=== PATIENT | female | born 1970 | race Caucasian/White ===

== ENCOUNTER 2022-03-09 22:51 | Outpatient (CLI) | payer BC, SELFPAY | END 2022-03-09 22:52 | disposition home or self-care (01) | LOC: AMB 03-26 19:26 | PROVIDERS: PCP Physician Assistant Medical; Visit Provider Family Medicine | DX: T39.1X2A Poisoning by 4-Aminophenol derivatives, intentional self-harm, initial encounter (principal); Y92.039 Unspecified place in apartment as the place of occurrence of the external cause | CPT/HCPCS: A0425; A0427 ==

== ENCOUNTER 2022-03-09 23:17 | Emergency (ER) | payer BC, SELFPAY ==
[2022-03-09 23:24] VITALS: BP 171/110; PULSE 88; RESP 22; TEMP 36.2; O2SAT 100; BMI 22.7
--- NOTE | 2022-03-09 23:36 | ED.PSYCH ---
HPI - Psych General Chief Complaint: Psychiatric Problem/Disorder <Roman Ramirez MD - Last Filed: 03/09/22 23:55> Stated Complaint: Overdose <Roman Ramirez MD - Last Filed: 03/09/22 23:55> Time Seen by Provider: 03/09/22 23:38 <Roman Ramirez MD - Last Filed: 03/09/22 23:55> History of Present Illness HPI Narrative: Patient is a 52-year-old woman with a complex past medical history involving chronic renal insufficiency who presents after taking approximately 3000 mg of Tylenol and 800 mg of ibuprofen this evening. Patient states that she was in argument with her boyfriend and she took the medication out of anger to try to end her life. She is losing her sight in the patient's boyfriend is by her count reluctant to take care of her. She is feeling fine now. She states she is not suicidal. She is having no adverse consequences to her medication intake. <Roman Ramirez MD - Last Filed: 03/09/22 23:55> Related Data Home Medications: Home Medications Medication Instructions Recorded Confirmed acetaminophen 500 mg tablet mg 03/09/22 albuterol sulfate 90 mcg/actuation inhalation 03/09/22 aerosol inhaler (Ventolin HFA) aspirin 81 mg chewable tablet 03/09/22 atorvastatin 40 mg tablet mg 03/09/22 atorvastatin 80 mg tablet mg 03/09/22 duloxetine 30 mg capsule,delayed mg PO 03/09/22 release insulin aspart U-100 100 unit/mL subcut 03/09/22 (3 mL) subcutaneous pen (Novolog Flexpen U-100 Insulin aspart) insulin glargine 100 unit/mL (3 unit subcut 03/09/22 mL) subcutaneous pen (Lantus Solostar U-100 Insulin) ipratropium 0.5 mg-albuterol 3 mg ml inhalation 03/09/22 (2.5 mg base)/3 mL nebulization soln lidocaine 5 % topical patch 1 patch topical DAILY 03/09/22 03/09/22 lisinopril 10 mg tablet mg 03/09/22 mecobalamin (vitamin B12) 1,000 1,000 mcg PO DAILY 03/09/22 03/09/22 mcg chewable tablet metoclopramide HCl 5 mg tablet mg 03/09/22 montelukast 10 mg tablet mg 03/09/22 nicotine (polacrilex) 2 mg gum 2 mg buccal Q1-2H PRN 03/09/22 03/09/22 (Nicorette) nitroglycerin 0.4 mg sublingual 0.4 mg sublingual Q5M 03/09/22 03/09/22 tablet (Nitrostat) ondansetron 4 mg disintegrating mg 03/09/22 tablet pantoprazole 40 mg tablet,delayed mg PO 03/09/22 release polyethylene glycol 3350 17 17 g PO DAILY 03/09/22 03/09/22 gram/dose oral powder (Miralax) sennosides 8.6 mg tablet (Senna 8.6 mg PO DAILY 03/09/22 03/09/22 Lax) trazodone 100 mg tablet mg 03/09/22 <Roman Ramirez MD - Last Filed: 03/09/22 23:55> Allergies/Adverse Reactions: Allergies Allergy/AdvReac Type Severity Reaction Status Date / Time No Known Drug Allergies Allergy Verified 03/09/22 23:32 <Roman Ramirez MD - Last Filed: 03/09/22 23:55> Review of Systems Status of ROS: Reports: 10 or more systems reviewed and unremarkable except as noted in History and below <Roman Ramirez MD - Last Filed: 03/09/22 23:55> [facility] Medical History: Medical History (Updated 03/10/22 @ 07:53 by Naty Casper MD) ACP (advance care planning) ASHD (arteriosclerotic heart disease) Asthma Bilateral carpal tunnel syndrome Chronic pain COVID-19 virus infection Fibromyalgia Gastric dysmotility GERD without esophagitis Hidradenitis suppurativa History of CVA (cerebrovascular accident) History of falling History of syncope HLD (hyperlipidemia) Insomnia Methamphetamine abuse Misuse of drugs Nausea and vomiting Nephrotic range proteinuria Orthostatic hypotension PFO (patent foramen ovale) Sleep apnea Stage 3 chronic kidney disease Supine hypertension Tobacco abuse Trigger finger of thumb Type 1 diabetes mellitus with diabetic autonomic (poly)neuropathy UTI (urinary tract infection) Vitamin B12 deficiency <Roman Ramirez MD - Last Filed: 03/09/22 23:55> Social History: Social History Do you use any of these nicotine containing products: None Second hand tobacco smoke exposure: No How often do you have a drink containing alcohol: never AUDIT-C Alcohol total score: 0 Non-prescribed substance use: former substance user and amphetamines/methamphetamines service: No <Roman Ramirez MD - Last Filed: 03/09/22 23:55> Exam Narrative: Exam Narrative: EXAM GENERAL: Patient appears chronically unwell. EYES: No scleral icterus. LYMPH: No supraclavicular or cervical lymphadenopathy. SKIN: Visible skin seen during exam normal or with benign process only. EXT: No dependent lower extremity pedal edema. HEART: Regular rate and rhythm with no murmurs, rubs, or gallops. LUNGS: Clear to auscultation bilaterally with no crackles or wheezes. ABD: Soft, non tender, non distended. PSYCH: Good eye contact, speech is not pressured. <Roman Ramirez MD - Last Filed: 03/09/22 23:55> Const: Vital Signs, click to edit/add: Vital Signs - 24 hr 03/09/22 23:24 Temperature 97.2 F L Pulse Rate [Right Pulse Oximeter] 88 Respiratory Rate 22 Blood Pressure [Ri ght Upper Arm] 171/110 H Pulse Oximetry 100 Oxygen Delivery Me thod Room Air <Roman Ramirez MD - Last Filed: 03/09/22 23:55> Vital Signs, click to edit/add: Vital Signs - 24 hr 03/09/22 23:24 Temperature 97.2 F L Pulse Rate [Right Pulse Oximeter] 88 Respiratory Rate 22 Blood Pressure [Ri ght Upper Arm] 171/110 H Pulse Oximetry 100 Oxygen Delivery Me thod Room Air <Naty Casper MD - Last Filed: 03/10/22 07:53> Course Course Hospital Course: I have collected standard laboratory studies for psychiatric evaluation. We have contacted poison Control. We will plan to place a consult for mental health assessment. <Roman Ramirez MD - Last Filed: 03/09/22 23:55> Reevaluation(s) Reevaluation #1: After telehealth consultation, it was felt that this patient was safe to discharge to home. She you was reportedly feeling better after discussed seen and talking with the telehealth provider. Patient was exhibiting future wrist Rodriguez thinking, wanting to live for her grandkids, was really focused on an upcoming eye surgery appointment reported the. She talked about needing to get away from her current boyfriend it had insight and does some of the current living situation problem she had. Patient repetitively asked for a sleeping pill overnight which was declined. I discussed with her that she had had positive urine drug screen with methamphetamines which might be affecting her overall ability is sleep. Note, nursing staff reported that patient was sleeping most of the night however. She also stated that the other doctor had told her she could have 1 Vicodin but never got it. I reviewed with her that I would not be giving her any Vicodin, nursing staff did not endorse that this was going to happen either. Patient will be discharged to home with telehealth making her an outpatient phone call follow-up. <Naty Casper MD - Last Filed: 03/10/22 07:53> Time: 05:00 <Naty Casper MD - Last Filed: 03/10/22 07:53> Vital Signs Vital signs: Initial Vital Signs Temperature 97.2 F L 03/09/22 23:24 Temperature Source Temporal Artery Scan 03/09/22 23:24 Pulse Rate 88 03/09/22 23:24 Pulse Rhythm 03/09/22 23:24 Respiratory Rate 22 03/09/22 23:24 Blood Pressure 171/110 H 03/09/22 23:24 Blood Pressure Mean 130 03/09/22 23:24 Blood Pressure Position Supine 03/09/22 23:24 Pulse Oximetry 100 03/09/22 23:24 Oxygen Delivery Method 03/09/22 23:24 Vital Signs Temperature 97.2 F L 03/09/22 23:24 Pulse Rate 88 03/09/22 23:24 Respiratory Rate 22 03/09/22 23:24 Blood Pressure 171/110 H 03/09/22 23:24 Pulse Oximetry 100 03/09/22 23:24 Oxygen Delivery Method 03/09/22 23:24 Temperature 97.2 F L 03/09/22 23:24 Pulse Rate 88 03/09/22 23:24 Respiratory Rate 22 03/09/22 23:24 Blood Pressure 171/110 H 03/09/22 23:24 Pulse Oximetry 100 03/09/22 23:24 Oxygen Delivery Method 03/09/22 23:24 <Roman Ramirez MD - Last Filed: 03/09/22 23:55> Initial Vital Signs Temperature 97.2 F L 03/09/22 23:24 Temperature Source Temporal Artery Scan 03/09/22 23:24 Pulse Rate 88 03/09/22 23:24 Pulse Rhythm 03/09/22 23:24 Respiratory Rate 22 03/09/22 23:24 Blood Pressure 171/110 H 03/09/22 23:24 Blood Pressure Mean 130 03/09/22 23:24 Blood Pressure Position Supine 03/09/22 23:24 Pulse Oximetry 100 03/09/22 23:24 Oxygen Delivery Method 03/09/22 23:24 Vital Signs Temperature 97.2 F L 03/09/22 23:24 Pulse Rate 88 03/09/22 23:24 Respiratory Rate 22 03/09/22 23:24 Blood Pressure 171/110 H 03/09/22 23:24 Pulse Oximetry 100 03/09/22 23:24 Oxygen Delivery Method 03/09/22 23:24 Temperature 97.2 F L 03/09/22 23:24 Pulse Rate 88 03/09/22 23:24 Respiratory Rate 22 03/09/22 23:24 Blood Pressure 171/110 H 03/09/22 23:24 Pulse Oximetry 100 03/09/22 23:24 Oxygen Delivery Method 03/09/22 23:24 <Naty Casper MD - Last Filed: 03/10/22 07:53> MDM - Psych Lab Data Attestation: I reviewed the patient's lab results. <Naty Casper MD - Last Filed: 03/10/22 07:53> Labs: Lab Results 03/09/22 03/09/22 03/10/22 Range/Units 23:50 23:50 01:05 WBC 12.23 H (4.50-11.00) K/uL RBC 3.97 L (4.00-5.20) m/uL Hgb 11.3 L (12.0-16.0) gm/dL Hct 33.9 (33.0-51.0) % MCV 85 (80-100) fL MCH 29 (26-34) pg MCHC 33 (32-36) gm/dL RDW Coeff of Santino 13.0 (11.5-15.5) % Plt Count 340 (140-440) K/uL Neut % (Auto) 65.8 (42.0-72.0) % Lymph % (Auto) 25.3 (20-44) % [place] % (Auto) 5.4 (0.0-11.0) % Eos % (Auto) 2.0 (0.0-7.0) % Baso % (Auto) 0.7 (0.0-3.0) % Neut # (Auto) 8.00 H (1.7-7.0) K/uL Lymph # (Auto) 3.10 H (0.90-2.90) K/uL [place] # (Auto) 0.70 (0.00-0.90) K/UL Eos # (Auto) 0.20 (0.00-0.50) K/uL Baso # (Auto) 0.10 (0.00-0.30) K/uL Abs Immat Gran (auto) 0.10 (0.00-0.30) K/uL Sodium 135 (135-149) mmol/L Potassium 4.3 (3.6-5.1) mmol/L Chloride 108 (96-114) mmol/L Carbon Dioxide 21 (20-32) mmol/L BUN 51 H (7-30) mg/dL Creatinine 2.3 H (0.5-1.5) mg/dL Estimated Creat Clear 22.08 Estimated GFR 25 ml/min Glucose 253 H (60-115) mg/dL Calcium 7.9 L (8.4-10.6) mg/dL Total Bilirubin 0.1 (0.1-1.5) mg/dL AST 24 (12-35) U/L ALT 22 (4-35) U/L Alkaline Phosphatase 73 (40-150) U/L Total Protein 6.0 (6.0-8.3) g/dL Albumin 2.9 L (3.3-5.0) g/dL Salicylates < 1.0 L (1.0-10) mg/dL Urine Opiates Screen Negative (Negative) Ur Oxycodone Screen Negative (Negative) Urine Methadone Screen Negative (Negative) Ur Propoxyphene Screen Negative (Negative) Acetaminophen 20.0 (10.0-30.0) ug/mL Ur Barbiturates Screen Negative (Negative) U Tricyclic Antidepress Negative (Negative) Ur Phencyclidine Scrn Negative (Negative) Ur Amphetamines Screen POSITIVE A* (Negative) U Methamphetamines Scrn POSITIVE A* (Negative) U Benzodiazepines Scrn Negative (Negative) Urine Cocaine Screen Negative (Negative) U Marijuana (THC) Screen Negative (Negative) Ur Drug Screen Comment See Note Ethyl Alcohol < 0.01 L (0.01-0.03) % 03/10/22 Range/Units 02:29 WBC (4.50-11.00) K/uL RBC (4.00-5.20) m/uL Hgb (12.0-16.0) gm/dL Hct (33.0-51.0) % MCV (80-100) fL MCH (26-34) pg MCHC (32-36) gm/dL RDW Coeff of Santino (11.5-15.5) % Plt Count (140-440) K/uL Neut % (Auto) (42.0-72.0) % Lymph % (Auto) (20-44) % [place] % (Auto) (0.0-11.0) % Eos % (Auto) (0.0-7.0) % Baso % (Auto) (0.0-3.0) % Neut # (Auto) (1.7-7.0) K/uL Lymph # (Auto) (0.90-2.90) K/uL [place] # (Auto) (0.00-0.90) K/UL Eos # (Auto) (0.00-0.50) K/uL Baso # (Auto) (0.00-0.30) K/uL Abs Immat Gran (auto) (0.00-0.30) K/uL Sodium (135-149) mmol/L Potassium (3.6-5.1) mmol/L Chloride (96-114) mmol/L Carbon Dioxide (20-32) mmol/L BUN (7-30) mg/dL Creatinine (0.5-1.5) mg/dL Estimated Creat Clear Estimated GFR ml/min Glucose (60-115) mg/dL Calcium (8.4-10.6) mg/dL Total Bilirubin (0.1-1.5) mg/dL AST (12-35) U/L ALT (4-35) U/L Alkaline Phosphatase (40-150) U/L Total Protein (6.0-8.3) g/dL Albumin (3.3-5.0) g/dL Salicylates (1.0-10) mg/dL Urine Opiates Screen (Negative) Ur Oxycodone Screen (Negative) Urine Methadone Screen (Negative) Ur Propoxyphene Screen (Negative) Acetaminophen 15.0 (10.0-30.0) ug/mL Ur Barbiturates Screen (Negative) U Tricyclic Antidepress (Negative) Ur Phencyclidine Scrn (Negative) Ur Amphetamines Screen (Negative) U Methamphetamines Scrn (Negative) U Benzodiazepines Scrn (Negative) Urine Cocaine Screen (Negative) U Marijuana (THC) Screen (Negative) Ur Drug Screen Comment Ethyl Alcohol (0.01-0.03) % <Roman Ramirez MD - Last Filed: 03/09/22 23:55> Lab Results 03/09/22 03/09/22 03/10/22 Range/Units 23:50 23:50 01:05 WBC 12.23 H (4.50-11.00) K/uL RBC 3.97 L (4.00-5.20) m/uL Hgb 11.3 L (12.0-16.0) gm/dL Hct 33.9 (33.0-51.0) % MCV 85 (80-100) fL MCH 29 (26-34) pg MCHC 33 (32-36) gm/dL RDW Coeff of Santino 13.0 (11.5-15.5) % Plt Count 340 (140-440) K/uL Neut % (Auto) 65.8 (42.0-72.0) % Lymph % (Auto) 25.3 (20-44) % [place] % (Auto) 5.4 (0.0-11.0) % Eos % (Auto) 2.0 (0.0-7.0) % Baso % (Auto) 0.7 (0.0-3.0) % Neut # (Auto) 8.00 H (1.7-7.0) K/uL Lymph # (Auto) 3.10 H (0.90-2.90) K/uL [place] # (Auto) 0.70 (0.00-0.90) K/UL Eos # (Auto) 0.20 (0.00-0.50) K/uL Baso # (Auto) 0.10 (0.00-0.30) K/uL Abs Immat Gran (auto) 0.10 (0.00-0.30) K/uL Sodium 135 (135-149) mmol/L Potassium 4.3 (3.6-5.1) mmol/L Chloride 108 (96-114) mmol/L Carbon Dioxide 21 (20-32) mmol/L BUN 51 H (7-30) mg/dL Creatinine 2.3 H (0.5-1.5) mg/dL Estimated Creat Clear 22.08 Estimated GFR 25 ml/min Glucose 253 H (60-115) mg/dL Calcium 7.9 L (8.4-10.6) mg/dL Total Bilirubin 0.1 (0.1-1.5) mg/dL AST 24 (12-35) U/L ALT 22 (4-35) U/L Alkaline Phosphatase 73 (40-150) U/L Total Protein 6.0 (6.0-8.3) g/dL Albumin 2.9 L (3.3-5.0) g/dL Salicylates < 1.0 L (1.0-10) mg/dL Urine Opiates Screen Negative (Negative) Ur Oxycodone Screen Negative (Negative) Urine Methadone Screen Negative (Negative) Ur Propoxyphene Screen Negative (Negative) Acetaminophen 20.0 (10.0-30.0) ug/mL Ur Barbiturates Screen Negative (Negative) U Tricyclic Antidepress Negative (Negative) Ur Phencyclidine Scrn Negative (Negative) Ur Amphetamines Screen POSITIVE A* (Negative) U Methamphetamines Scrn POSITIVE A* (Negative) U Benzodiazepines Scrn Negative (Negative) Urine Cocaine Screen Negative (Negative) U Marijuana (THC) Screen Negative (Negative) Ur Drug Screen Comment See Note Ethyl Alcohol < 0.01 L (0.01-0.03) % 03/10/22 Range/Units 02:29 WBC (4.50-11.00) K/uL RBC (4.00-5.20) m/uL Hgb (12.0-16.0) gm/dL Hct (33.0-51.0) % MCV (80-100) fL MCH (26-34) pg MCHC (32-36) gm/dL RDW Coeff of Santino (11.5-15.5) % Plt Count (140-440) K/uL Neut % (Auto) (42.0-72.0) % Lymph % (Auto) (20-44) % [place] % (Auto) (0.0-11.0) % Eos % (Auto) (0.0-7.0) % Baso % (Auto) (0.0-3.0) % Neut # (Auto) (1.7-7.0) K/uL Lymph # (Auto) (0.90-2.90) K/uL [place] # (Auto) (0.00-0.90) K/UL Eos # (Auto) (0.00-0.50) K/uL Baso # (Auto) (0.00-0.30) K/uL Abs Immat Gran (auto) (0.00-0.30) K/uL Sodium (135-149) mmol/L Potassium (3.6-5.1) mmol/L Chloride (96-114) mmol/L Carbon Dioxide (20-32) mmol/L BUN (7-30) mg/dL Creatinine (0.5-1.5) mg/dL Estimated Creat Clear Estimated GFR ml/min Glucose (60-115) mg/dL Calcium (8.4-10.6) mg/dL Total Bilirubin (0.1-1.5) mg/dL AST (12-35) U/L ALT (4-35) U/L Alkaline Phosphatase (40-150) U/L Total Protein (6.0-8.3) g/dL Albumin (3.3-5.0) g/dL Salicylates (1.0-10) mg/dL Urine Opiates Screen (Negative) Ur Oxycodone Screen (Negative) Urine Methadone Screen (Negative) Ur Propoxyphene Screen (Negative) Acetaminophen 15.0 (10.0-30.0) ug/mL Ur Barbiturates Screen (Negative) U Tricyclic Antidepress (Negative) Ur Phencyclidine Scrn (Negative) Ur Amphetamines Screen (Negative) U Methamphetamines Scrn (Negative) U Benzodiazepines Scrn (Negative) Urine Cocaine Screen (Negative) U Marijuana (THC) Screen (Negative) Ur Drug Screen Comment Ethyl Alcohol (0.01-0.03) % <Naty Casper MD - Last Filed: 03/10/22 07:53> Critical Care Time Critical Care Time Critical Care Time: No <Naty Casper MD - Last Filed: 03/10/22 07:53> Discharge Plan Discharge Clinical Impression: Intentional drug overdose, Methamphetamine use <Roman Ramirez MD - Last Filed: 03/09/22 23:55> Condition: Stable <Roman Ramirez MD - Last Filed: 03/09/22 23:55> Instructions: Methamphetamine Abuse (ED), Adult Overdose (ED), Suicide Prevention (ED) <Roman Ramirez MD - Last Filed: 03/09/22 23:55> Additional Instructions: It is highly recommended that you not use methamphetamine, only take dosages of Tylenol per bottle direction. Certainly 3000 mg at 1 time is not recommended. Please follow the telehealth recommendations and follow through with a phone consultation neb set up for you. Talk to primary provider about possibly getting set up with a therapist and to discuss current ED visit. If you feel you are becoming suicidal, have significant change in her status regarding her mood, please seek re-evaluation. <Roman Ramirez MD - Last Filed: 03/09/22 23:55> Prescriptions: No Action atorvastatin 40 mg tablet Label Comments: TAKE 1 TABLET (40 MG) BY MOUTH DAILY. atorvastatin 80 mg tablet Label Comments: TAKE ONE TABLET BY MOUTH ONE TIME DAILY AT BEDTIME ipratropium-albuterol 0.5 mg-3 mg(2.5 mg base)/3 mL solution for nebulization INHALATION Label Comments: Inhale 1 vial (3 mL) via a nebulizer 4 times daily if needed for Shortness of Breath 1st choice or Wheezing acetaminophen 500 mg tablet Label Comments: Take 1 Tablet (500 mg) by mouth in the morning and 1 Tablet (500 mg) at noon and 1 Tablet (500 mg) in the evening and 1 Tablet (500 mg) befo metoclopramide HCl 5 mg tablet Label Comments: Take 1 tablet by mouth at least 15 minutes prior to eating a meal. To help reduce nausea. Refills per primary doctor trazodone 100 mg tablet Label Comments: TAKE ONE TABLET BY MOUTH ONE TIME DAILY AT BEDTIME pantoprazole 40 mg tablet,delayed release (DR/EC) PO Label Comments: TAKE 1 TABLET (40 MG TOTAL)BY MOUTH 2 (TWO) TIMES A DAY. lisinopril 10 mg tablet Label Comments: TAKE ONE TABLET BY MOUTH ONE TIME DAILY aspirin 81 mg tablet,chewable Label Comments: CHEW AND SWALLOW ONE TABLET BY MOUTH ONE TIME DAILY WITH A MEAL. montelukast 10 mg tablet Label Comments: TAKE ONE TABLET BY MOUTH ONE TIME DAILY AT BEDTIME albuterol sulfate [Ventolin HFA] 90 mcg/actuation HFA aerosol inhaler INHALATION Label Comments: INHALE ONE OR TWO PUFFS BY MOUTH FOUR TIMES DAILY NEEDED SHORTNESS OF BREATH OR WHEEZING ondansetron 4 mg tablet,disintegrating Label Comments: DISSOLVE ONE TABLET IN MOUTH EVERY EIGHT HOURS NEEDED FOR NAUSEA AND VOMITING insulin aspart U-100 [Novolog Flexpen U-100 Insulin] 100 unit/mL (3 mL) insulin pen SUBCUT Label Comments: Inject 0-13 Units under the skin 3 (three) times a day. Based on sliding scale, max of 39 units daily. duloxetine 30 mg capsule,delayed release(DR/EC) PO Label Comments: TAKE ONE CAPSULE BY MOUTH TWICE DAILY; IN THE MORNING AND EVENING. insulin glargine [Lantus Solostar U-100 Insulin] 100 unit/mL (3 mL) insulin pen SUBCUT Label Comments: Inject 45 units by subcutaneous route once daily before bedtime. lidocaine 5 % adhesive patch,medicated 1 patch topical DAILY Rx Instructions: leave on most painful area for up to 12 hrs polyethylene glycol 3350 [Miralax] 17 gram/dose powder 17 g PO DAILY sennosides [Senna Lax] 8.6 mg tablet 8.6 mg PO DAILY nicotine (polacrilex) [Nicorette] 2 mg gum 2 mg buccal Q1-2H PRN nitroglycerin [Nitrostat] 0.4 mg tablet, sublingual 0.4 mg sublingual Q5M Rx Instructions: do not exceed 3 doses per episode mecobalamin (vitamin B12) 1,000 mcg tablet,chewable 1,000 mcg PO DAILY <Roman Ramirez MD - Last Filed: 03/09/22 23:55> Follow Up/Referrals: Nichelle Mae PA-C [Primary Care Provider] - <Roman Ramirez MD - Last Filed: 03/09/22 23:55> Stand Alone Forms: [facility] Info Instructions <Roman Ramirez MD - Last Filed: 03/09/22 23:55>
--- NOTE | 2022-03-09 23:46 | ED.NURSE ---
Poison Control contacted: Sx: GI upset, N/V Suggest tylenol level now and at 0230. Rec. tx for levels >1.30 at 0230 draw.
[2022-03-09 23:58] LABS: Basophils Percent Auto 0.7 % (0.0-3.0); Hematocrit 33.9 % (33.0-51.0); Hemoglobin* 11.3 gm/dL (12.0-16.0); Lymphocytes Percent Auto 25.3 % (20-44); Mean Corpuscular HGB Conc 33 gm/dL (32-36); Mean Corpuscular Hemoglobin 29 pg (26-34); Mean Corpuscular Volume 85 fL (80-100); Monocytes Percent Auto 5.4 % (0.0-11.0); Neutrophils Percent Auto 65.8 % (42.0-72.0); Platelet Count* 340 K/uL (140-440); Red Blood Count 3.97 m/uL (4.00-5.20); White Blood Count* 12.23 K/uL (4.50-11.00)
[2022-03-10 00:03] LABS: Slide Review Reflex No
[2022-03-10 00:11] LABS: Albumin* 2.9 g/dL (3.3-5.0); Chloride* 108 mmol/L (96-114)
[2022-03-10 00:12] LABS: Potassium* 4.3 mmol/L (3.6-5.1); Sodium* 135 mmol/L (135-149)
[2022-03-10 00:14] LABS: Alanine Aminotransferase* 22 U/L (4-35); Alkaline Phosphatase* 73 U/L (40-150); Aspartate Amino Transferase* 24 U/L (12-35); Bilirubin Total* 0.1 mg/dL (0.1-1.5); Blood Urea Nitrogen* 51 mg/dL (7-30); Calcium* 7.9 mg/dL (8.4-10.6); Carbon Dioxide* 21 mmol/L (20-32); Creatinine* 2.3 mg/dL (0.5-1.5); Est. Creatinine Clearance* 22.08; Estimated Glomerular Filt Rate 25 ml/min; Glucose* 253 mg/dL (60-115)
[2022-03-10 00:16] LABS: Ethanol* < 0.01 % (0.01-0.03); Salicylate* < 1.0 mg/dL (1.0-10)
--- NOTE | 2022-03-10 01:09 | ED.NURSE ---
Patient ambulatory to bathroom. Patient asking for something to help her sleep. MD notified.
[2022-03-10 01:18] LABS: Barbiturate Screen Urine Negative (Negative); Benzodiazepines Screen Urine Negative (Negative); Cannabinoid Screen Urine Negative (Negative); Cocaine Screen Urine Negative (Negative); Methadone Screen Urine Negative (Negative); Opiate Screen Urine Negative (Negative); Oxycodone Screen Urine Negative (Negative); Phencyclidine Screen Urine Negative (Negative); Tricyclic Antidepressant Urine Negative (Negative)
[2022-03-10 01:24] LABS: Amphetamine Screen Urine POSITIVE (Negative); Methamphetamines Screen Urine POSITIVE (Negative)
== END 2022-03-10 07:35 | disposition home or self-care (01) ==
PROVIDERS: Internal Medicine; Emergency Provider Family Medicine; PCP Physician Assistant Medical
DX: T39.1X2A Poisoning by 4-Aminophenol derivatives, intentional self-harm, initial encounter (principal); F15.20 Other stimulant dependence, uncomplicated
CPT/HCPCS: 36415; 80053; 80143; 80179; 80306; 82077; 85025; 99283; 99284

== ENCOUNTER 2022-05-22 14:11 | Emergency (ER) | payer BC, SELFPAY ==
[2022-05-22 14:19] VITALS: BP 132/92; PULSE 81; RESP 18; TEMP 36.1; O2SAT 100; BMI 25.4
--- NOTE | 2022-05-22 15:04 | CRLHL7_ITS ---
For Patients: As a result of the Century Cures Act, medical imaging exams and procedure reports are released immediately into your electronic medical record. You may view this report before your referring provider. If you have questions, please contact your health care provider. INDICATION: Left lower quadrant pain, hernia. TECHNIQUE: CT abdomen and pelvis without contrast. COMPARISON: November 2021. FINDINGS: Lower chest: Bibasilar subsegmental atelectasis. Coronary artery calcifications. Low-attenuation blood products in the left ventricle relative to the ventricular wall, likely reflecting underlying anemia. ABDOMEN: Liver: Normal attenuation. Gallbladder and biliary: Cholecystectomy. Normal caliber bile ducts. Spleen: Normal size and attenuation. Pancreas: The noncontrast pancreas is homogeneous in attenuation without peripancreatic inflammatory changes or ductal dilatation. Adrenal glands: Normal adrenal glands. Kidneys and ureters: Normal attenuation of the kidneys. No hydroureteronephrosis. Calcifications in the renal pelvis are likely vascular in etiology. GI tract: The stomach is relatively decompressed. Normal caliber small and large bowel loops. Normal appendix. Vascular structures: Normal caliber aorta with atherosclerotic vascular calcifications. Lymph nodes: No lymphadenopathy in the abdomen or pelvis by size criteria. Peritoneum: No free air, free fluid, or focal drainable fluid collection. PELVIS: Genitourinary system: Normal urinary bladder. Hysterectomy. Symmetric vaginal cuff. Ovaries not visualized. Cystic tubular fluid focus in the left inguinal region extending inferiorly and medially towards the vagina, likely a hydrocele of the canal of [place]. Associated punctate peripheral rim calcification. SKELETAL STRUCTURES AND SOFT TISSUES: No suspicious lytic or blastic lesions. IMPRESSION: 1. No acute abdominal or pelvic process. No obstruction. No hydroureteronephrosis. Normal appendix. No nephrolithiasis. 2. Cystic tubular fluid focus in the left inguinal region extending inferiorly and medially towards the vagina, likely a hydrocele of the canal of [place]. 3. Atherosclerotic vascular calcifications. Severe small vessels atherosclerotic calcifications. 4. Low-attenuation blood products in the left ventricle relative to the ventricular wall, likely reflecting underlying anemia. Please note that all CT scans at this facility use dose modulation, iterative reconstruction, and/or weight-based dosing when appropriate to reduce radiation dose to as low as reasonably achievable. Dictated by Cuco Conteh MD @ 05/22/2022 5:07:46 PM (Electronically Signed)
--- NOTE | 2022-05-22 15:05 | ED_ITS ---
HPI - Abdominal Pain General Chief Complaint: Abdominal Pain Stated Complaint: Possible Hernia Time Seen by Provider: 05/22/22 14:17 History of Present Illness HPI narrative: This 52-year-old female comes in with pain in the inguinal region of her left lower quadrant. She states that she has felt a lump there which is suspicious for hernia. This is been present for the past several months. She now his increased pain. She states that she has had abdominal hernias that were repaire d in the past. She does not report any nausea or vomiting. She also did does not report any dysuria or altered bowel function. Related Data Home Medications Medication Instructions Recorded Confirmed acetaminophen 500 mg tablet 500 mg 03/09/22 albuterol sulfate 90 mcg/actuation 1 puff inhalation PRN 03/09/22 aerosol inhaler (Ventolin HFA) aspirin 81 mg chewable tablet 03/09/22 atorvastatin 40 mg tablet mg 03/09/22 atorvastatin 80 mg tablet mg 03/09/22 duloxetine 30 mg capsule,delayed 30 mg PO BID 03/09/22 05/22/22 release insulin aspart U-100 100 unit/mL 1 sliding scale dose subcut 03/09/22 (3 mL) subcutaneous pen (Novolog Flexpen U-100 Insulin aspart) insulin glargine 100 unit/mL (3 45 unit subcut hs 03/09/22 mL) subcutaneous pen (Lantus Solostar U-100 Insulin) ipratropium 0.5 mg-albuterol 3 mg ml inhalation 03/09/22 (2.5 mg base)/3 mL nebulization soln lidocaine 5 % topical patch 1 patch topical DAILY 03/09/22 03/09/22 lisinopril 10 mg tablet mg 03/09/22 mecobalamin (vitamin B12) 1,000 1,000 mcg PO DAILY 03/09/22 05/22/22 mcg chewable tablet metoclopramide HCl 5 mg tablet 5 mg 03/09/22 montelukast 10 mg tablet mg 03/09/22 nicotine (polacrilex) 2 mg gum 2 mg buccal Q1-2H PRN 03/09/22 03/09/22 (Nicorette) nitroglycerin 0.4 mg sublingual 0.4 mg sublingual Q5M 03/09/22 03/09/22 tablet (Nitrostat) polyethylene glycol 3350 17 17 g PO DAILY 03/09/22 03/09/22 gram/dose oral powder (Miralax) sennosides 8.6 mg tablet (Senna 8.6 mg PO DAILY 03/09/22 03/09/22 Lax) trazodone 100 mg tablet mg 03/09/22 Allergies Allergy/AdvReac Type Severity Reaction Status Date / Time No Known Drug Allergies Allergy Verified 05/22/22 14:24 Review of Systems Status of ROS Reports: 10 or more systems reviewed and unremarkable except as noted in History and below Narrative Constitutional: No fevers, no weight gain or loss. Eyes: No discharge. No vision changes. HENT: No congestion, no sore throat, no ear pain. Cardiovascular: No chest pain, no palpitations. Respiratory: No shortness of breath, no wheezes, no cough. Gastrointestinal: No vomiting, no diarrhea. Left lower quadrant abdominal pain with a palpable lump in the inguinal region. Genitourinary: No dysuria, no hematuria. Musculoskeletal: Normal range of motion. Skin: No rashes, no pruritis. Neurological: No dizziness, weakness, sensory change, speech change. Endo/Heme/Allergies: No bruising or bleeding. No polydipsia. Pysch: no suicidality, no anxiety, no insomnia. All other systems reviewed and are negative. [facility] Medical History (Updated 05/22/22 @ 17:49 by Jamil Boykin MD) ACP (advance care planning) ASHD (arteriosclerotic heart disease) Asthma Bilateral carpal tunnel syndrome Chronic pain COVID-19 virus infection Fibromyalgia Gastric dysmotility GERD without esophagitis Hidradenitis suppurativa History of CVA (cerebrovascular accident) History of falling History of syncope HLD (hyperlipidemia) Insomnia Methamphetamine abuse Misuse of drugs Nausea and vomiting Nephrotic range proteinuria Orthostatic hypotension PFO (patent foramen ovale) Sleep apnea Stage 3 chronic kidney disease Supine hypertension Tobacco abuse Trigger finger of thumb Type 1 diabetes mellitus with diabetic autonomic (poly)neuropathy UTI (urinary tract infection) Vitamin B12 deficiency Social History Smoking Status: Current every day smoker How often do you have a drink containing alcohol: never AUDIT-C Alcohol total score: 0 Non-prescribed substance use: former substance user, marijuana (any form) and amphetamines/methamphetamines Non-prescribed substance use details: Smokes marijuana service: No Exam Narrative: Exam Narrative: Constitutional: Well-developed, well-nourished, no acute distress. HEENT: Normocephalic, atraumatic. Neck: Normal range of motion. Nontender. Supple. Heart: Regular. No murmurs. Normal rate. Intact distal pulses. Lungs: Clear to auscultation. No chest discomfort. No wheezes, rhonchi, or rales. Abdomen: Normal bowel sounds. No rebound tenderness. Palpable lump that is tender in left lower quadrant in the inguinal region. Genitalia: Deferred. Back: No midline tenderness. Normal range of motion. Extremities: Normal range of motion. No injury. Skin: Intact. No rash. Warm. No erythema or pallor. Neurologic: No altered sensation. No weakness. Alert and oriented. Psychiatric: No suicidality. No anxiety or depression. No insomnia. Nursing notes and vitals signs are reviewed. Const: Vital Signs, click to edit/add: Vital Signs - 24 hr 05/22/22 14:19 Temperature 97.0 F L Pulse Rate [Right Pulse Oximeter] 81 Respiratory Rate 18 Blood Pressure [Ri ght Upper Arm] 132/92 H Pulse Oximetry 100 Oxygen Delivery Me thod Room Air Course Vital Signs Vital signs: Initial Vital Signs Temperature 97.0 F L 05/22/22 14:19 Temperature Source Temporal Artery Scan 05/22/22 14:19 Pulse Rate 81 05/22/22 14:19 Respiratory Rate 18 05/22/22 14:19 Blood Pressure 132/92 H 05/22/22 14:19 Blood Pressure Mean 105 05/22/22 14:19 Blood Pressure Position Sitting 05/22/22 14:19 Pulse Oximetry 100 05/22/22 14:19 Oxygen Delivery Method 05/22/22 14:19 Vital Signs Temperature 97.0 F L 05/22/22 14:19 Pulse Rate 81 05/22/22 14:19 Respiratory Rate 18 05/22/22 14:19 Blood Pressure 132/92 H 05/22/22 14:19 Pulse Oximetry 100 05/22/22 14:19 Oxygen Delivery Method 05/22/22 14:19 Temperature 97.0 F L 05/22/22 14:19 Pulse Rate 81 05/22/22 14:19 Respiratory Rate 18 05/22/22 14:19 Blood Pressure 132/92 H 05/22/22 14:19 Pulse Oximetry 100 05/22/22 14:19 Oxygen Delivery Method 05/22/22 14:19 MDM - Abdominal Pain MDM Narrative Medical decision making narrative: This patient comes in with left lower quadrant abdominal pain due to a palpable lump in the left inguinal region. An IV was established and labs were drawn. The patient had a CT scan of the abdomen and pelvis with does show a cystic structure that is regarded to be hydrocele by the radiologist. The patient did receive an IV dose of Dilaudid 0.5 mg for pain relief. I did speak with the surgeon on-call, Dr. Giles, who recommended follow-up in the clinic with 1 of the surgeons for further evaluation and treatment. The patient did receive a prescription for some tablets of [place] for pain relief. Lab Data Labs: Lab Results 05/22/22 05/22/22 Range/Units 15:28 15:28 WBC 14.26 H (4.50-11.00) K/uL RBC 3.86 L (4.00-5.20) m/uL Hgb 11.3 L (12.0-16.0) gm/dL Hct 34.6 (33.0-51.0) % MCV 90 (80-100) fL MCH 29 (26-34) pg MCHC 33 (32-36) gm/dL RDW Coeff of Santino 12.8 (11.5-15.5) % Plt Count 406 (140-440) K/uL Neut % (Auto) 63.6 (42.0-72.0) % Lymph % (Auto) 25.2 (20-44) % [place] % (Auto) 6.7 (0.0-11.0) % Eos % (Auto) 3.0 (0.0-7.0) % Baso % (Auto) 1.0 (0.0-3.0) % Neut # (Auto) 9.10 H (1.7-7.0) K/uL Lymph # (Auto) 3.60 H (0.90-2.90) K/uL [place] # (Auto) 1.00 H (0.00-0.90) K/UL Eos # (Auto) 0.40 (0.00-0.50) K/uL Baso # (Auto) 0.10 (0.00-0.30) K/uL Abs Immat Gran (auto) 0.07 (0.00-0.30) K/uL Sodium 136 (135-149) mmol/L Potassium 4.2 (3.6-5.1) mmol/L Chloride 107 (96-114) mmol/L Carbon Dioxide 23 (20-32) mmol/L BUN 37 H (7-30) mg/dL Creatinine 2.3 H (0.5-1.5) mg/dL Estimated Creat Clear 21.02 Estimated GFR 25 ml/min Glucose 152 H (60-115) mg/dL Calcium 8.7 (8.4-10.6) mg/dL Imaging Data CT scan - abdomen: Radiologist's impression: 1. No acute abdominal or pelvic process. No obstruction. No hydroureteronephrosis. Normal appendix. No nephrolithiasis. 2. Cystic tubular fluid focus in the left inguinal region extending inferiorly and medially towards the vagina, likely a hydrocele of the canal of [place]. 3. Atherosclerotic vascular calcifications. Severe small vessels atherosclerotic calcifications. 4. Low-attenuation blood products in the left ventricle relative to the ventricular wall, likely reflecting underlying anemia. Discharge Plan Discharge Clinical Impression: Hydrocele of canal of [place] Patient Disposition: Home, Self-Care Condition: Unchanged Additional Instructions: Take medication as needed and indicated. Follow up with surgery Clinic. Call for appointment at [phone]. Prescriptions: No Action atorvastatin 40 mg tablet Label Comments: TAKE 1 TABLET (40 MG) BY MOUTH DAILY. atorvastatin 80 mg tablet Label Comments: TAKE ONE TABLET BY MOUTH ONE TIME DAILY AT BEDTIME ipratropium-albuterol 0.5 mg-3 mg(2.5 mg base)/3 mL solution for nebulization INHALATION Label Comments: Inhale 1 vial (3 mL) via a nebulizer 4 times daily if needed for Shortness of Breath 1st choice or Wheezing acetaminophen 500 mg tablet 500 mg Label Comments: Take 1 Tablet (500 mg) by mouth in the morning and 1 Tablet (500 mg) at noon and 1 Tablet (500 mg) in the evening and 1 Tablet (500 mg) befo metoclopramide HCl 5 mg tablet 5 mg Label Comments: Take 1 tablet by mouth at least 15 minutes prior to eating a meal. To help reduce nausea. Refills per primary doctor trazodone 100 mg tablet Label Comments: TAKE ONE TABLET BY MOUTH ONE TIME DAILY AT BEDTIME lisinopril 10 mg tablet Label Comments: TAKE ONE TABLET BY MOUTH ONE TIME DAILY aspirin 81 mg tablet,chewable Label Comments: CHEW AND SWALLOW ONE TABLET BY MOUTH ONE TIME DAILY WITH A MEAL. montelukast 10 mg tablet Label Comments: TAKE ONE TABLET BY MOUTH ONE TIME DAILY AT BEDTIME albuterol sulfate [Ventolin HFA] 90 mcg/actuation HFA aerosol inhaler 1 puff INHALATION PRN Label Comments: INHALE ONE OR TWO PUFFS BY MOUTH FOUR TIMES DAILY NEEDED SHORTNESS OF BREATH OR WHEEZING insulin aspart U-100 [Novolog Flexpen U-100 Insulin] 100 unit/mL (3 mL) insulin pen 1 sliding scale dose SUBCUT Label Comments: Inject 0-13 Units under the skin 3 (three) times a day. Based on sliding scale, max of 39 units daily. duloxetine 30 mg capsule,delayed release(DR/EC) 30 mg PO BID Label Comments: TAKE ONE CAPSULE BY MOUTH TWICE DAILY; IN THE MORNING AND EVENING. insulin glargine [Lantus Solostar U-100 Insulin] 100 unit/mL (3 mL) insulin pen 45 unit SUBCUT Label Comments: Inject 45 units by subcutaneous route once daily before bedtime. lidocaine 5 % adhesive patch,medicated 1 patch topical DAILY Rx Instructions: leave on most painful area for up to 12 hrs polyethylene glycol 3350 [Miralax] 17 gram/dose powder 17 g PO DAILY sennosides [Senna Lax] 8.6 mg tablet 8.6 mg PO DAILY nicotine (polacrilex) [Nicorette] 2 mg gum 2 mg buccal Q1-2H PRN nitroglycerin [Nitrostat] 0.4 mg tablet, sublingual 0.4 mg sublingual Q5M Rx Instructions: do not exceed 3 doses per episode mecobalamin (vitamin B12) 1,000 mcg tablet,chewable 1,000 mcg PO DAILY Follow Up/Referrals: Eunice Hernandez PA-C [Primary Care Provider] - Stand Alone Forms: [facility] Info Instructions
[2022-05-22 15:34] LABS: Hematocrit 34.6 % (33.0-51.0); Hemoglobin* 11.3 gm/dL (12.0-16.0); Immature Granulocytes Abs Auto 0.07 K/uL (0.00-0.30); Lymphocytes Percent Auto 25.2 % (20-44); Mean Corpuscular HGB Conc 33 gm/dL (32-36); Mean Corpuscular Hemoglobin 29 pg (26-34); Mean Corpuscular Volume 90 fL (80-100); Monocytes Percent Auto 6.7 % (0.0-11.0); Neutrophils Percent Auto 63.6 % (42.0-72.0); Platelet Count* 406 K/uL (140-440); RDW Coefficient of Variation % 12.8 % (11.5-15.5); Red Blood Count 3.86 m/uL (4.00-5.20); White Blood Count* 14.26 K/uL (4.50-11.00)
[2022-05-22 15:40] LABS: Slide Review Reflex No
[2022-05-22 15:46] LABS: Chloride* 107 mmol/L (96-114); Potassium* 4.2 mmol/L (3.6-5.1); Sodium* 136 mmol/L (135-149)
[2022-05-22 15:49] LABS: Carbon Dioxide* 23 mmol/L (20-32); Creatinine* 2.3 mg/dL (0.5-1.5); Est. Creatinine Clearance* 21.02; Estimated Glomerular Filt Rate 25 ml/min
[2022-05-22 15:50] LABS: Blood Urea Nitrogen* 37 mg/dL (7-30); Calcium* 8.7 mg/dL (8.4-10.6); Glucose* 152 mg/dL (60-115)
[2022-05-22] MEDS: HYDROmorphone 0.5 mg/0.5 ml inj 0.2 MG IVP (17:01)
== END 2022-05-22 18:00 | disposition home or self-care (01) ==
PROVIDERS: Emergency Provider Emergency Medicine Emergency Medical Services; PCP Physician Assistant
DX: N94.89 Other specified conditions associated with female genital organs and menstrual cycle (principal)
CPT/HCPCS: 36415; 74176; 80048; 85025; 96374; 99284; J1170

== ENCOUNTER 2022-06-07 12:55 | Outpatient (CLI) | payer BC, SELFPAY | END 2022-06-07 12:56 | disposition home or self-care (01) | PROVIDERS: PCP Physician Assistant; Visit Provider Emergency Medicine Emergency Medical Services | DX: R19.04 Left lower quadrant abdominal swelling, mass and lump (principal) | CPT/HCPCS: A0425; A0427 ==

== ENCOUNTER 2022-08-14 09:48 | Outpatient (CLI) | payer BC, SELFPAY | END 2022-08-14 09:49 | disposition home or self-care (01) | LOC: AMB 15:52 | PROVIDERS: Visit Provider Internal Medicine | DX: S29.9XXA Unspecified injury of thorax, initial encounter (principal); W18.30XA Fall on same level, unspecified, initial encounter; Y92.002 Bathroom of unspecified non-institutional (private) residence as the place of occurrence of the external cause | CPT/HCPCS: A0425; A0427 ==

== ENCOUNTER 2022-08-14 10:22 | Inpatient (IN) | payer BC, SELFPAY ==
[2022-08-14] VITALS (13 sets, daily range): BP systolic 136–167; BP diastolic 82–113; PULSE 71–98; RESP 18; TEMP 36.2; O2SAT 95–100; BMI 28.3; BMI 32.1
--- NOTE | 2022-08-14 10:32 | ED.GENADULT ---
HPI - General Adult General Time Seen by Provider: 10:33 Date Seen: 08/14/22 Chief complaint: Rib Pain Stated complaint: Rib pain Time Seen by Provider: 08/14/22 10:32 Source: patient, EMS, RN notes reviewed and old records reviewed Mode of arrival: EMS Limitations: no limitations History of Present Illness HPI narrative: Patient is a 52-year-old female brought in by EMS from home with left chest wall pain. She states she got up last night to go to the bathroom. She was having difficulty seeing and subsequently got dizzy, fell against the left side of the tub, could not catch her fall. She is having significant left rib pain, thinks she cracked a rib. She is feeling short of breath. 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 She states she did turn the lights on to help her see, it was dark out but did have the lights on. She has received 50 mcg of fentanyl IV via EMS EN route. Denies any abdominal pain, no nausea vomiting, no hematuria. Does tell me she has chronic kidney disease which I was aware as a had reviewed her chart, creatinine has been in the low 2 range. She notes no hematuria but did review with her that since we cannot use IV contrast on her CT, do recommend that we get a urinalysis to ensure no hematuria. No loss of consciousness, no neck or back pain, did not reportedly hit her head. Her left chest wall hit the edge of the tub when she fell. No other painful areas at this time. On questioning, she does states she feels short of breath from this. Related Data Home Medications Medication Instructions Recorded Confirmed albuterol sulfate 90 mcg/actuation 1 puff inhalation QID PRN 03/09/22 08/14/22 aerosol inhaler (Ventolin HFA) aspirin 81 mg chewable tablet 81 mg PO DAILY 03/09/22 08/14/22 atorvastatin 80 mg tablet 80 mg PO HS 03/09/22 08/14/22 insulin aspart U-100 100 unit/mL 4 unit subcut TIDWM 03/09/22 08/14/22 (3 mL) subcutaneous pen (Novolog FlexPen U-100 Insulin aspart) insulin glargine 100 unit/mL (3 18 unit subcut HS 03/09/22 08/14/22 mL) subcutaneous pen (Lantus Solostar U-100 Insulin) mecobalamin (vitamin B12) 1,000 1,000 mcg PO DAILY 03/09/22 08/14/22 mcg chewable tablet metoclopramide HCl 5 mg tablet 5 mg PO TIDWM 03/09/22 08/14/22 nitroglycerin 0.4 mg sublingual 0.4 mg sublingual Q5M PRN 03/09/22 08/14/22 tablet (Nitrostat) acetaminophen 325 mg tablet 650 mg PO Q6H PRN 08/14/22 08/14/22 cyanocobalamin (vitamin B-12) 1,000 mcg PO DAILY 08/14/22 08/14/22 1,000 mcg tablet hydrocodone 5 mg-acetaminophen 325 1 tab PO Q4H PRN 08/14/22 08/14/22 mg tablet ipratropium 0.5 mg-albuterol 3 mg 3 ml inhalation QID PRN 08/14/22 08/14/22 (2.5 mg base)/3 mL nebulization soln mirtazapine 15 mg tablet 15 mg PO HS 08/14/22 08/14/22 Allergies Allergy/AdvReac Type Severity Reaction Status Date / Time No Known Drug Allergies Allergy Verified 05/22/22 14:24 Review of Systems Status of ROS: Reports: 10 or more systems reviewed and unremarkable except as noted in History and below [facility] Medical History (Updated 08/14/22 @ 16:34 by Shira Tovar MD) ASHD (arteriosclerotic heart disease) Asthma Chronic pain CKD (chronic kidney disease) stage 4, GFR 15-29 ml/min Fibromyalgia Gastric dysmotility GERD without esophagitis Hidradenitis suppurativa History of CVA (cerebrovascular accident) History of falling History of syncope HLD (hyperlipidemia) Insomnia Methamphetamine abuse Nausea and vomiting Nephrotic range proteinuria Orthostatic hypotension PFO (patent foramen ovale) Sleep apnea Tobacco abuse Type 1 diabetes mellitus with diabetic autonomic (poly)neuropathy Vitamin B12 deficiency Surgical History (Updated 08/14/22 @ 16:02 by Shira Tovar MD) H/O cardiac catheterization H/O wisdom tooth extraction History of History of carpal tunnel release History of dilatation and curettage History of hernia repair Hx of cholecystectomy S/P JAZMINE-BSO Social History Highest level of school completed/degree received: 11th grade Smoking Status: Current some day smoker How often do you have a drink containing alcohol: never AUDIT-C Alcohol total score: 0 Non-prescribed substance use: former substance user, marijuana (any form) and amphetamines/methamphetamines Non-prescribed substance use details: Smokes marijuana service: No Exam Narrative: Exam Narrative: Patient is resting comfortably, sleeping when I come in the room. She awakens to my verbal greeting. She keeps her eyes closed during the interaction in is sleepy, presumably from the fentanyl from EMS. Will open her eyes when prompted. Const: Vital Signs, click to edit/add: Vital Signs - 24 hr 08/14/22 10:28 08/14/22 10:43 08/14/22 10:25 Temperature 97.2 F L 97.2 F L Pulse Rate [Right Pulse Oximeter] 96 96 Respiratory Rate 18 18 Blood Pressure [Ri ght Upper Arm] 136/82 136/82 Pulse Oximetry 95 100 100 Oxygen Delivery Me thod Room Air Room Air 08/14/22 10:30 08/14/22 11:30 08/14/22 12:00 Temperature Pulse Rate [Right Pulse Oximeter] Respiratory Rate Blood Pressure [Ri ght Upper Arm] 143/89 H 149/110 H 145/86 H Pulse Oximetry Oxygen Delivery Ga thod 08/14/22 12:30 08/14/22 13:00 08/14/22 13:30 Temperature Pulse Rate [Right Pulse Oximeter] Respiratory Rate Blood Pressure [Ri ght Upper Arm] 156/98 H 160/99 H 156/113 H Pulse Oximetry Oxygen Delivery Ga thod 08/14/22 14:00 Temperature Pulse Rate [Right Pulse Oximeter] Respiratory Rate Blood Pressure [Ri ght Upper Arm] 167/110 H Pulse Oximetry Oxygen Delivery Me thod Documenting provider has reviewed patient's vital signs: yes Common normals: no apparent distress, average body habitus, oriented x3, no limitations and alert General appearance: disheveled and frail appearing HENMT: Common normals: normocephalic, head/scalp atraumatic, hearing grossly normal bilaterally, external ears normal and external nose normal Head and scalp: normocephalic and atraumatic Nose: external nose normal External ear: external ears normal Eye: Common normals: PERRL, EOMs intact bilaterally, conjunctivae normal and no scleral icterus Conjunctiva: conjunctiva(e) normal Pupil: PERRL Neck & C-Spine: Common normals: full ROM, no lymphadenopathy, supple, no meningeal signs, no JVD and thyroid normal Thyroid: thyroid normal Chest: Common normals: inspection of chest normal Other: Even with the lightest touch along her left anterolateral lower chest wall, patient moans and groans in pain. There is no overlying ecchymosis, no erythema, no external wounds or traumatic change. There is no palpable crepitus or step-off. Resp: Common normals: normal respiratory effort, no retractions, no use of accessory muscles and clear to auscultation bilaterally Auscultation: clear to auscultation bilaterally Cardio: Common normals: no JVD, regular rate, regular rhythm, S1 normal heart sound, S2 normal heart sound, no gallops, no clicks and no murmurs Rate: regular rate Rhythm: regular rhythm Heart sounds: S1 normal and S2 normal GI: Common normals: Normal to inspection, nondistended, normoactive bowel sounds present, soft to palpation, no hepatosplenomegaly and no masses Palpation: soft and no hepatosplenomegaly Other: Does complain of some left upper quadrant pain but just right below the rib margin. Again no traumatic chest wall changes on visualization. I do not feel any mass. No true rebound or guarding. Extremity: Other: No lower extremity edema noted. Neuro: Simone Coma Scale: document GCS findings Simone coma scale eye opening: Spontaneous (4) Simone coma scale verbal response: Orientated (5) [place] coma scale motor response: Obey commands (6) [place] coma scale total score: 15 Common normals: oriented x3, CN's II-XII intact bilaterally, moves all extremities and no focal motor deficits Sensorium/orientation: alert Meningeal signs: no meningeal signs Speech: speech normal Course Course Hospital Course: Will obtain CT of her chest and go through her abdomen. She does have some mild left upper quadrant tenderness on examination. Obtain baseline labs with CBC and comprehensive metabolic panel, will obtain urinalysis just to ensure no significant hematuria. Will also obtain urine toxicology. She will be monitored on pulse oximetry. She certainly seems comfortable right now and does not require further pain management at this time. Will await imaging and labs. Reevaluation(s) Reevaluation #1: [place] patient crying and objecting to get up to go to the bathroom. Went in to help nursing staff. Patient states she could not open her eyes, was crying that she fell last night. Reviewed with November that we really did need to get a urinalysis. Part of her being here is for us to assess her fully and see if she will be stable in ambulatory enough to be able to return home. She did eventually get up with the aid of a walker. We did have a belt on her for safety. She initially was refusing to open her eyes but then did open them. On her way walking to the bathroom, did stop in ask for pain medicines. I declined, stated that she really needed to show us safety with her ambulation. She had told nursing staff that she just wanted to lie in bed and sleep. She does have a walker at home per report. She was able to eventually ambulate to and from the bathroom without difficulty once she was prompted to open her eyes, attempt the ambulation, and was prompted to move slower. Time: 11:40 Reevaluation #2: Have just reviewed patient's CT report, this clinically looks like CHF on her CT. Do not see that she is on any diuretic, do not see a definite history of CHF. Given her renal insufficiency, do feel that she is going to need to be monitored with initiation of diuretics. I will order an echo. I have contacted lab and did a lab add on for troponin, proBNP, magnesium, TSH. I will have staff get an EKG. I have spoken with the hospitalist Dr. Eddy, she agrees with hospitalization in this patient. I will initiate 20 mg IV Lasix. Patient's urine toxicology is positive for methamphetamines, she did admit she used last night. We have advised her against this, hospitalist is aware of the positive drug screen. Time: 13:08 Consultations Consultation #1: Spoke with the hospitalist regarding elevated troponin. Patient is not having active chest pain. No ischemic change on her EKG. Looking back in November 2021, did have elevated troponins. I do wonder if this is ischemic issues from methamphetamine use. We are waiting an echo. Time: 13:54 Vital Signs Vital signs: Initial Vital Signs Temperature 97.2 F L 08/14/22 10:25 Temperature Source Temporal Artery Scan 08/14/22 10:25 Pulse Rate 96 08/14/22 10:25 Respiratory Rate 18 08/14/22 10:25 Blood Pressure 136/82 08/14/22 10:25 Blood Pressure Mean 100 08/14/22 10:25 Blood Pressure Position Sitting 08/14/22 10:25 Pulse Oximetry 100 08/14/22 10:25 Oxygen Delivery Method 08/14/22 10:25 Vital Signs Temperature 97.2 F L 08/14/22 10:25 Pulse Rate 96 08/14/22 10:25 Respiratory Rate 18 08/14/22 10:25 Blood Pressure 136/82 08/14/22 10:25 Pulse Oximetry 100 08/14/22 10:25 Oxygen Delivery Method 08/14/22 10:25 Temperature 97.2 F L 08/14/22 10:28 Pulse Rate 98 08/14/22 15:15 Respiratory Rate 18 08/14/22 15:15 Blood Pressure 151/108 H 08/14/22 15:15 Pulse Oximetry 98 08/14/22 15:15 Oxygen Delivery Method 08/14/22 15:15 Medical Decision Making Lab Data Lab results reviewed: Yes I reviewed the patient's lab results Labs: Lab Results 08/14/22 08/14/22 08/14/22 Range/Units 10:44 10:55 10:55 WBC 11.36 H (4.50-11.00) K/uL RBC 3.51 L (4.00-5.20) m/uL Hgb 10.2 L (12.0-16.0) gm/dL Hct 31.8 L (33.0-51.0) % MCV 91 (80-100) fL MCH 29 (26-34) pg MCHC 32 (32-36) gm/dL RDW Coeff of Santino 13.0 (11.5-15.5) % Plt Count 309 (140-440) K/uL Neut % (Auto) 72.3 H (42.0-72.0) % Lymph % (Auto) 19.7 L (20-44) % [place] % (Auto) 6.1 (0.0-11.0) % Eos % (Auto) 1.0 (0.0-7.0) % Baso % (Auto) 0.7 (0.0-3.0) % Neut # (Auto) 8.20 H (1.7-7.0) K/uL Lymph # (Auto) 2.20 (0.90-2.90) K/uL [place] # (Auto) 0.70 (0.00-0.90) K/UL Eos # (Auto) 0.10 (0.00-0.50) K/uL Baso # (Auto) 0.10 (0.00-0.30) K/uL Sodium 135 (135-149) mmol/L Potassium 4.9 (3.6-5.1) mmol/L Chloride 111 (96-114) mmol/L Carbon Dioxide 19 L (20-32) mmol/L BUN 43 H (7-30) mg/dL Creatinine 2.4 H (0.5-1.5) mg/dL Estimated Creat Clear 21.16 Estimated GFR 24 ml/min Glucose 239 H (60-115) mg/dL Hemoglobin A1c (0-5.6) % Calcium 8.8 (8.4-10.6) mg/dL Magnesium 1.9 (1.5-2.6) mg/dL Total Bilirubin 0.4 (0.1-1.5) mg/dL AST 33 (12-35) U/L ALT 22 (4-35) U/L Alkaline Phosphatase 95 (40-150) U/L Troponin I 0.10 H* (0.01-0.04) ng/mL NT-Pro-B Natriuret Pep 81270 pg/mL Total Protein 6.1 (6.0-8.3) g/dL Albumin 3.0 L (3.3-5.0) g/dL Procalcitonin 0.12 (<0.50) ng/mL TSH (0.270-4.20) uIU/mL Urine Color (Yellow) Urine Appearance (Clear) Urine pH (5.0-8.5) Ur Specific [place] (1.000-1.030) Urine Protein (Negative) Urine Glucose (UA) (Negative) Urine Ketones (Negative) Urine Blood (Negative) Urine Nitrite (Negative) Urine Bilirubin (Negative) Urine Urobilinogen (0.2-1.0) Ur Leukocyte Esterase (Negative) Urine RBC (0-2) Urine WBC (0-5) Ur Squamous Epith Cells (None-Few) Urine Bacteria (None) Urine Opiates Screen Negative (Negative) Ur Oxycodone Screen Negative (Negative) Urine Methadone Screen Negative (Negative) Ur Propoxyphene Screen Negative (Negative) Ur Barbiturates Screen Negative (Negative) U Tricyclic Antidepress Negative (Negative) Ur Phencyclidine Scrn Negative (Negative) Ur Amphetamines Screen POSITIVE A* (Negative) U Methamphetamines Scrn POSITIVE A* (Negative) U Benzodiazepines Scrn Negative (Negative) Urine Cocaine Screen Negative (Negative) U Marijuana (THC) Screen Negative (Negative) Ur Drug Screen Comment See Note SARS-CoV-2 (PCR) Influenza Type A (PCR) (Negative) Influenza Type B (PCR) (Negative) RSV (PCR) (Negative) 08/14/22 08/14/22 08/14/22 Range/Units 10:55 10:55 11:55 WBC (4.50-11.00) K/uL RBC (4.00-5.20) m/uL Hgb (12.0-16.0) gm/dL Hct (33.0-51.0) % MCV (80-100) fL MCH (26-34) pg MCHC (32-36) gm/dL RDW Coeff of Santino (11.5-15.5) % Plt Count (140-440) K/uL Neut % (Auto) (42.0-72.0) % Lymph % (Auto) (20-44) % [place] % (Auto) (0.0-11.0) % Eos % (Auto) (0.0-7.0) % Baso % (Auto) (0.0-3.0) % Neut # (Auto) (1.7-7.0) K/uL Lymph # (Auto) (0.90-2.90) K/uL [place] # (Auto) (0.00-0.90) K/UL Eos # (Auto) (0.00-0.50) K/uL Baso # (Auto) (0.00-0.30) K/uL Sodium (135-149) mmol/L Potassium (3.6-5.1) mmol/L Chloride (96-114) mmol/L Carbon Dioxide (20-32) mmol/L BUN (7-30) mg/dL Creatinine (0.5-1.5) mg/dL Estimated Creat Clear Estimated GFR ml/min Glucose (60-115) mg/dL Hemoglobin A1c 8.51 H (0-5.6) % Calcium (8.4-10.6) mg/dL Magnesium (1.5-2.6) mg/dL Total Bilirubin (0.1-1.5) mg/dL AST (12-35) U/L ALT (4-35) U/L Alkaline Phosphatase (40-150) U/L Troponin I (0.01-0.04) ng/mL NT-Pro-B Natriuret Pep pg/mL Total Protein (6.0-8.3) g/dL Albumin (3.3-5.0) g/dL Procalcitonin (<0.50) ng/mL TSH 3.970 (0.270-4.20) uIU/mL Urine Color Light yellow (Yellow) Urine Appearance Slightly Cloudy A (Clear) Urine pH 7.5 (5.0-8.5) Ur Specific [place] 1.020 (1.000-1.030) Urine Protein 3+ A (Negative) Urine Glucose (UA) 2+ A (Negative) Urine Ketones Negative (Negative) Urine Blood Trace-lysed A (Negative) Urine Nitrite Negative (Negative) Urine Bilirubin Negative (Negative) Urine Urobilinogen 0.2 (0.2-1.0) Ur Leukocyte Esterase Negative (Negative) Urine RBC 2-5 A (0-2) Urine WBC 2-5 (0-5) Ur Squamous Epith Cells None (None-Few) Urine Bacteria Few A (None) Urine Opiates Screen (Negative) Ur Oxycodone Screen (Negative) Urine Methadone Screen (Negative) Ur Propoxyphene Screen (Negative) Ur Barbiturates Screen (Negative) U Tricyclic Antidepress (Negative) Ur Phencyclidine Scrn (Negative) Ur Amphetamines Screen (Negative) U Methamphetamines Scrn (Negative) U Benzodiazepines Scrn (Negative) Urine Cocaine Screen (Negative) U Marijuana (THC) Screen (Negative) Ur Drug Screen Comment SARS-CoV-2 (PCR) Influenza Type A (PCR) (Negative) Influenza Type B (PCR) (Negative) RSV (PCR) (Negative) 08/14/22 08/14/22 Range/Units 13:02 13:13 WBC (4.50-11.00) K/uL RBC (4.00-5.20) m/uL Hgb (12.0-16.0) gm/dL Hct (33.0-51.0) % MCV (80-100) fL MCH (26-34) pg MCHC (32-36) gm/dL RDW Coeff of Santino (11.5-15.5) % Plt Count (140-440) K/uL Neut % (Auto) (42.0-72.0) % Lymph % (Auto) (20-44) % [place] % (Auto) (0.0-11.0) % Eos % (Auto) (0.0-7.0) % Baso % (Auto) (0.0-3.0) % Neut # (Auto) (1.7-7.0) K/uL Lymph # (Auto) (0.90-2.90) K/uL [place] # (Auto) (0.00-0.90) K/UL Eos # (Auto) (0.00-0.50) K/uL Baso # (Auto) (0.00-0.30) K/uL Sodium (135-149) mmol/L Potassium (3.6-5.1) mmol/L Chloride (96-114) mmol/L Carbon Dioxide (20-32) mmol/L BUN (7-30) mg/dL Creatinine (0.5-1.5) mg/dL Estimated Creat Clear Estimated GFR ml/min Glucose (60-115) mg/dL Hemoglobin A1c (0-5.6) % Calcium (8.4-10.6) mg/dL Magnesium (1.5-2.6) mg/dL Total Bilirubin (0.1-1.5) mg/dL AST (12-35) U/L ALT (4-35) U/L Alkaline Phosphatase (40-150) U/L Troponin I (0.01-0.04) ng/mL NT-Pro-B Natriuret Pep pg/mL Total Protein (6.0-8.3) g/dL Albumin (3.3-5.0) g/dL Procalcitonin (<0.50) ng/mL TSH (0.270-4.20) uIU/mL Urine Color (Yellow) Urine Appearance (Clear) Urine pH (5.0-8.5) Ur Specific [place] (1.000-1.030) Urine Protein (Negative) Urine Glucose (UA) (Negative) Urine Ketones (Negative) Urine Blood (Negative) Urine Nitrite (Negative) Urine Bilirubin (Negative) Urine Urobilinogen (0.2-1.0) Ur Leukocyte Esterase (Negative) Urine RBC (0-2) Urine WBC (0-5) Ur Squamous Epith Cells (None-Few) Urine Bacteria (None) Urine Opiates Screen (Negative) Ur Oxycodone Screen (Negative) Urine Methadone Screen (Negative) Ur Propoxyphene Screen (Negative) Ur Barbiturates Screen (Negative) U Tricyclic Antidepress (Negative) Ur Phencyclidine Scrn (Negative) Ur Amphetamines Screen (Negative) U Methamphetamines Scrn (Negative) U Benzodiazepines Scrn (Negative) Urine Cocaine Screen (Negative) U Marijuana (THC) Screen (Negative) Ur Drug Screen Comment SARS-CoV-2 (PCR) Cancelled Negative SARS-CoV-2 Influenza Type A (PCR) Negative PCR FLU A (Negative) Influenza Type B (PCR) Negative PCR FLU B (Negative) RSV (PCR) Negative PCR RSV (Negative) Imaging Data CT Chest/Ab/Pelvis: Attestation: I have reviewed the pertinent imaging results. My impression: Can see bilateral pleural effusions, do not appreciate acute fracture but certainly will await Radiology over read on this advanced imaging study. Radiologist's impression: Patient: NOVEMBER [place] Facility:?[facility] Patient ID:?[id number] Site Patient ID:?[id number]. Site :?[id number] Study:?CT Chest/Abd/Pelvis W/O-08/14/2022 11:07:12 AM Ordering Physician:?Pennie Alfonso Final Report: INDICATION: Fall with left chest wall pain and upper abdomen pain. TECHNIQUE: CT chest, abdomen and pelvis acquired without contrast. COMPARISON: CT abdomen pelvis May 22, 2022. CT chest July 02, 2021. FINDINGS: CHEST: Cardiovascular structures: Borderline cardiomegaly. Thoracic aorta and main pulmonary artery are normal in caliber. Dense coronary artery atherosclerosis. Mediastinum and lg: No mass or adenopathy. Lungs and pleura: Small bilateral symmetrical pleural effusions. Moderate interlobular septal thickening. No focal infiltrate or nodule. No pneumothorax. Chest wall and axilla: No mass or adenopathy. Bones: No fracture or other significant finding. ABDOMEN AND PELVIS: Liver: Unremarkable. Gallbladder and bile ducts: Cholecystectomy. Pancreas: Unremarkable. Spleen: Unremarkable. Adrenal glands: Unremarkable. Kidneys: Unremarkable. GI tract: Unremarkable. Vascular structures: Abdominal aorta is normal in caliber. Lymph nodes: Unremarkable. Miscellaneous: Unremarkable. No free air or significant free fluid. Pelvic Organs: Unremarkable. Bones: No fracture or other significant finding. IMPRESSION: 1. Findings of CHF including borderline cardiomegaly, dense coronary artery atherosclerosis, mild pulmonary interstitial edema, and small bilateral pleural effusions. 2. No other signs of acute injury or significant disease in the chest, abdomen or pelvis. Please note that all CT scans at this facility use dose modulation, iterative reconstruction, and/or weight-based dosing when appropriate to reduce radiation dose to as low as reasonably achievable. Dictated by Contreras Henderson MD @ 08/14/2022 12:49:44 PM (Electronic Signature) ECG Data Attestation: I personally reviewed and interpreted this ECG as follows: (Sinus rhythm, 100 beats per minute. No ischemia noted, QT corrected 469 milliseconds.) Prior ECG tracings: not available for review Critical Care Time Critical Care Time Critical Care Time: No Discharge Plan Discharge Clinical Impression: Congestive heart failure, Methamphetamine abuse, Fall Patient Disposition: Admitted As Inpatient
--- NOTE | 2022-08-14 10:43 | CRLHL7_ITS ---
For Patients: As a result of the Century Cures Act, medical imaging exams and procedure reports are released immediately into your electronic medical record. You may view this report before your referring provider. If you have questions, please contact your health care provider. INDICATION: Fall with left chest wall pain and upper abdomen pain. TECHNIQUE: CT chest, abdomen and pelvis acquired without contrast. COMPARISON: CT abdomen pelvis May 22, 2022. CT chest July 02, 2021. FINDINGS: CHEST: Cardiovascular structures: Borderline cardiomegaly. Thoracic aorta and main pulmonary artery are normal in caliber. Dense coronary artery atherosclerosis. Mediastinum and lg: No mass or adenopathy. Lungs and pleura: Small bilateral symmetrical pleural effusions. Moderate interlobular septal thickening. No focal infiltrate or nodule. No pneumothorax. Chest wall and axilla: No mass or adenopathy. Bones: No fracture or other significant finding. ABDOMEN AND PELVIS: Liver: Unremarkable. Gallbladder and bile ducts: Cholecystectomy. Pancreas: Unremarkable. Spleen: Unremarkable. Adrenal glands: Unremarkable. Kidneys: Unremarkable. GI tract: Unremarkable. Vascular structures: Abdominal aorta is normal in caliber. Lymph nodes: Unremarkable. Miscellaneous: Unremarkable. No free air or significant free fluid. Pelvic Organs: Unremarkable. Bones: No fracture or other significant finding. IMPRESSION: 1. Findings of CHF including borderline cardiomegaly, dense coronary artery atherosclerosis, mild pulmonary interstitial edema, and small bilateral pleural effusions. 2. No other signs of acute injury or significant disease in the chest, abdomen or pelvis. Please note that all CT scans at this facility use dose modulation, iterative reconstruction, and/or weight-based dosing when appropriate to reduce radiation dose to as low as reasonably achievable. Dictated by Contreras Henderson MD @ 08/14/2022 12:49:44 PM (Electronically Signed)
[2022-08-14 11:02] LABS: Basophils Percent Auto 0.7 % (0.0-3.0); Hematocrit 31.8 % (33.0-51.0); Hemoglobin* 10.2 gm/dL (12.0-16.0); Immature Granulocytes Pct Auto 0.2 %; Lymphocytes Percent Auto 19.7 % (20-44); Mean Corpuscular HGB Conc 32 gm/dL (32-36); Mean Corpuscular Hemoglobin 29 pg (26-34); Mean Corpuscular Volume 91 fL (80-100); Monocytes Percent Auto 6.1 % (0.0-11.0); Neutrophils Percent Auto 72.3 % (42.0-72.0); Platelet Count* 309 K/uL (140-440); Red Blood Count 3.51 m/uL (4.00-5.20); White Blood Count* 11.36 K/uL (4.50-11.00)
[2022-08-14 11:09] LABS: Slide Review Reflex No
[2022-08-14 11:28] LABS: Chloride* 111 mmol/L (96-114); Sodium* 135 mmol/L (135-149)
[2022-08-14 11:30] LABS: Bilirubin Total* 0.4 mg/dL (0.1-1.5); Carbon Dioxide* 19 mmol/L (20-32); Creatinine* 2.4 mg/dL (0.5-1.5); Est. Creatinine Clearance* 21.16; Estimated Glomerular Filt Rate 24 ml/min
[2022-08-14 11:31] LABS: Alanine Aminotransferase* 22 U/L (4-35); Alkaline Phosphatase* 95 U/L (40-150); Aspartate Amino Transferase* 33 U/L (12-35); Blood Urea Nitrogen* 43 mg/dL (7-30); Glucose* 239 mg/dL (60-115); Total Protein* 6.1 g/dL (6.0-8.3)
[2022-08-14 12:08] LABS: Appearance Urine Slightly Cloudy (Clear); Bilirubin Urine Negative (Negative); Blood Urine Trace-lysed (Negative); Color Urine Light yellow (Yellow); Glucose Urine 2+ (Negative); Ketones Urine Negative (Negative); Leukocyte Esterase Urine Negative (Negative); Nitrite Urine Negative (Negative); Protein Urine 3+ (Negative); Urobilinogen Urine 0.2 (0.2-1.0); pH Urine 7.5 (5.0-8.5)
[2022-08-14 12:09] LABS: Barbiturate Screen Urine Negative (Negative); Benzodiazepines Screen Urine Negative (Negative); Cannabinoid Screen Urine Negative (Negative); Cocaine Screen Urine Negative (Negative); Methadone Screen Urine Negative (Negative); Opiate Screen Urine Negative (Negative); Oxycodone Screen Urine Negative (Negative); Phencyclidine Screen Urine Negative (Negative); Tricyclic Antidepressant Urine Negative (Negative)
[2022-08-14 12:15] LABS: Potassium* 4.9 mmol/L (3.6-5.1)
[2022-08-14 12:16] LABS: Methamphetamines Screen Urine POSITIVE (Negative)
[2022-08-14 12:17] LABS: Amphetamine Screen Urine POSITIVE (Negative)
--- NOTE | 2022-08-14 12:17 | ED.NURSE ---
Critical result from lab: positive drug screen for methamphetamines and amphetamines. and RN updated.
[2022-08-14 12:18] LABS: Calcium* 8.8 mg/dL (8.4-10.6)
[2022-08-14 12:23] LABS: Bacteria Urine Few
[2022-08-14 13:33] LABS: Magnesium* 1.9 mg/dL (1.5-2.6)
[2022-08-14 13:47] LABS: NT Pro B Type NatriureticPept* 27900 pg/mL
--- NOTE | 2022-08-14 13:48 | ED.NURSE ---
critical lab called from lab. troponin 0.10. aware
[2022-08-14 14:05] LABS: PCR FLU A Negative PCR FLU A (Negative); PCR FLU B Negative PCR FLU B (Negative); PCR RSV Negative PCR RSV (Negative)
[2022-08-14 14:10] LABS: SARS PCR* Negative SARS-CoV-2 (Negative)
[2022-08-14] MEDS: METOPROLOL TARTRATE 50 MG TABLET PO (14:58)
[2022-08-14] MEDS: ASPIRIN EC 325 MG TABLET PO (14:58)
--- NOTE | 2022-08-14 14:58 | P.IMHP_ITS ---
Hospitalist- H&P: HPI History of Present Illness Date Seen: 08/14/22 Chief complaint: Rib pain Narrative: ADMISSION HISTORY AND PHYSICAL - HOSPITALIST Chief Complaint: I FELL, MY LEFT RIBS HURT HPI: Ms. Joelle Huntley is a 52 y.o. female with a history of uncontrolled DM type I (dx age 16), presumed gastroparesis (per EGD 11/2021), nephrotic range proteinuria with CKD stage IV, polysubstance use disorder (METH/TOBACCO), CAD (S/P stenting 09/2021), CVA, HTN who fell in the middle of the night last night against her bathtub. She had trouble getting up. She called EMS. She is complaining of left rib pain. She admits to using meth prior to her fall. She has a long complicated medical history. In the workup of her rib pain it was noted that she has a mild LISA superimposed on her chronic kidney disease. Her chest x-ray showed that she had cardiomegaly with congestive heart failure. This would be new diagnosis. She does have known CAD. Cast was last done in September was stents. She now has known wall motion abnormalities related to prior hemic events. Her troponin was noted to be 0.1 in addition to the LISA. How much of the troponin is related to creatinine clearance is unknown. Her EKG is nonischemic. Bedside echo actually done in the ED shows a dramatic decrease in her LV function from earlier this year. And she is clearly in failure. The effusion has not changed. Valvular changes have not changed. In the ED She had labs, imaging and echocardiogram I met her upon arrival to the floor - she is hemodynamically stable, not requiring oxygen -I [facility] her [facility]/Dr. Jenkins. We reviewed her current echo with her previous echo. We reviewed her cath report from September. He felt her findings today of congestive heart failure are related to methamphetamine use. Likely not ischemic, and no immediate need for catheterization. His advice was to restart guideline directed therapies for CHF/CAD, manage her congestive heart failure and cessation of all illicit drug use. I've updated the PFSH, medications and allergies in the Expanse tabs. INVESTIGATIONS: LABS/MICRO/ECG/IMAGING Afebrile since arrival Blood pressure has been progressively getting higher since her arrival 136/82, 167/110 Pulse 80s to 90s Respiratory rate 18 Pulse ox 100% 68 kilos CBC reflects a leukocytosis of 11.3 this is actually lower than her previous lucio dings here Hemoglobin 10.2, baseline of 11.3 Platelet count 309 Normal electrolytes mildly acidotic with a CO2 of 19 BUN and creatinine of 2.4 in 43 with a previous creatinine of 2.3 in May Glucose 239 Magnesium, bilirubin, LFTs, TSH are all normal Of note troponin is elevated at 0.10 - however her creat clear is quite diminished. Albumin is 3.0 Urine shows 2+ glucose, 3+ protein, no obvious signs of infection. Urine culture pending. Urine drug screen is positive for amphetamines, methamphetamines Negative respiratory panel Chest abdomen pelvis 1. Findings of CHF including borderline cardiomegaly, dense coronary artery atherosclerosis, mild pulmonary interstitial edema, and small bilateral pleural effusions. 2. No other signs of acute injury or significant disease in the chest, abdomen or pelvis. EKG = normal sinus rhythm. Rate 100. No obvious ischemic changes. Bedside ECHO TODAY 08/14/22 Final Impressions: 1. LVEF 30-35%. large apical akinesis. 2. Moderately reduced global RV function. 3. Moderate mitral regurgitation [eccentric, anteriorly directed jet]. 4. [id number] tricuspid regurgitation. 5. Moderate pulmonic regurgitation. 6. Moderately enlarged left atrium. 7. PASP 65 mmHg, mean RAP 15 mmHg included. 8. Trivial pericardial effusion. November 2021 ECHO Final Impressions: 1. LVEF estimate 50%. Normal LV wall thickness and size. 2. Inferior wall motion abnormality with akinetic bas and hypokinetic mid and distal segments. 3. Normal RV size and with mildly reduced function. 4. No significant valvular normalities. 5. Normal RA pressure estimate. 6. Trivial pericardial effusion. 7. Echo contrast was administered to enhance visualization of all left ventricular segments. CATH 10/01 * Chest pain, syncope, abnormal perfusion study with inferior ischemia, poorly controlled diabetes. DIAGNOSTIC - CORONARY * The left main artery has mild disease. * The LAD has diffuse moderate disease. * The circumflex artery has diffuse moderate disease. * The RCA is dominant with severe proximal to mid disease, moderate disease at distal bifurcation. HEMODYNAMICS * The LVEDP is within normal limits VASCULAR ACCESS * Using ultrasound guidance and a percutaneous technique, the right common femoral artery was accessed. Ultrasound was used to confirm vessel patency, localizing needle into the lumen of the vessel. An image was saved for the medical record. SPECIAL PROCEDURES * Right femoral arteriotomy was successfully closed utilizing a closure device INTERVENTION * Successful 2mm x 15mm Balloon, 2.5mm x 15mm Balloon, 1.5mm x 12mm Balloon, 2.5mm x 12mm Balloon, 2.5mm x 12mm Balloon, 2.25mm x 22mm Balloon, 2.5mm x 38mm Drug Eluting Stent, and 2.25mm x 22mm Drug Eluting Stent to Proximal to Mid RCA, post stenosis 0% RECOMMENDATIONS & PLAN * Optimize risk factors and medications, smoking cessation, aggressive diabetes management. * Plavix for 1 year ? minimum REVIEW OF SYSTEMS: 12-point ROS completed with patient and negative unless otherwise stated in HPI or below. PHYSICAL EXAM: CODE STATUS: Full code CONSTITUTIONAL: Odd affect. Lies with her eyes closed and more open them. But can tell me most of her story. VITAL SIGNS: see record. Hypertensive HEENT: Normocephalic, atraumatic. PERRL, EOMI, conjunctivae pink, no scleral icterus. Ears and nose externally normal. Pharynx normal. NECK: Mild JVD. No carotid bruit, no thyromegaly, no adenopathy. CHEST: Clear to auscultation bilaterally no wheezes HEART: S1 and S2 normal. No harsh murmurs. Edema 1+ MUSCULOSKELETAL: No gross joint deformity or swelling. NEURO: Cranial nerves intact. Grossly intact. No asymmetric findings. SKIN: No rashes, petechiae, concerning changes PSYCHIATRIC: Euthymic. ADMIT TO MEDSURG: FLOOR CARE DVT: Lovenox GI: PO intake, ppi Time spent: 70 minutes examining patient, conferring with family and patient, care staff, developing care plan [facility] Medical History (Updated 08/14/22 @ 16:34 by Shira Tovar MD) ASHD (arteriosclerotic heart disease) Asthma Chronic pain CKD (chronic kidney disease) stage 4, GFR 15-29 ml/min Fibromyalgia Gastric dysmotility GERD without esophagitis Hidradenitis suppurativa History of CVA (cerebrovascular accident) History of falling History of syncope HLD (hyperlipidemia) Insomnia Methamphetamine abuse Nausea and vomiting Nephrotic range proteinuria Orthostatic hypotension PFO (patent foramen ovale) Sleep apnea Tobacco abuse Type 1 diabetes mellitus with diabetic autonomic (poly)neuropathy Vitamin B12 deficiency Surgical History (Updated 08/14/22 @ 16:02 by Shira Tovar MD) H/O cardiac catheterization H/O wisdom tooth extraction History of History of carpal tunnel release History of dilatation and curettage History of hernia repair Hx of cholecystectomy S/P JAZMINE-BSO Social History Smoking Status: Current every day smoker How often do you have a drink containing alcohol: never AUDIT-C Alcohol total score: 0 Non-prescribed substance use: former substance user, marijuana (any form) and amphetamines/methamphetamines Non-prescribed substance use details: Smokes marijuana service: No Meds Home Medications and Allergies Home Medications Medication Instructions Recorded Confirmed Type albuterol sulfate 90 mcg/actuation 1 puff inhalation QID PRN 03/09/22 08/14/22 History aerosol inhaler (Ventolin HFA) aspirin 81 mg chewable tablet 81 mg PO DAILY 03/09/22 08/14/22 History atorvastatin 80 mg tablet 80 mg PO HS 03/09/22 08/14/22 History insulin aspart U-100 100 unit/mL 4 unit subcut TIDWM 03/09/22 08/14/22 History (3 mL) subcutaneous pen (Novolog FlexPen U-100 Insulin aspart) insulin glargine 100 unit/mL (3 18 unit subcut HS 03/09/22 08/14/22 History mL) subcutaneous pen (Lantus Solostar U-100 Insulin) mecobalamin (vitamin B12) 1,000 1,000 mcg PO DAILY 03/09/22 08/14/22 History mcg chewable tablet metoclopramide HCl 5 mg tablet 5 mg PO TIDWM 03/09/22 08/14/22 History nitroglycerin 0.4 mg sublingual 0.4 mg sublingual Q5M PRN 03/09/22 08/14/22 History tablet (Nitrostat) acetaminophen 325 mg tablet 650 mg PO Q6H PRN 08/14/22 08/14/22 History cyanocobalamin (vitamin B-12) 1,000 mcg PO DAILY 08/14/22 08/14/22 History 1,000 mcg tablet hydrocodone 5 mg-acetaminophen 325 1 tab PO Q4H PRN 08/14/22 08/14/22 History mg tablet ipratropium 0.5 mg-albuterol 3 mg 3 ml inhalation QID PRN 08/14/22 08/14/22 History (2.5 mg base)/3 mL nebulization soln mirtazapine 15 mg tablet 15 mg PO HS 08/14/22 08/14/22 History Allergies Allergy/AdvReac Type Severity Reaction Status Date / Time No Known Drug Allergies Allergy Verified 05/22/22 14:24 Exam Const: Vital Signs, click to edit/add: Vital Signs - 24 hr 08/14/22 10:28 08/14/22 10:43 08/14/22 10:25 Temperature 97.2 F L 97.2 F L Pulse Rate [Right Pulse Oximeter] 96 96 Respiratory Rate 18 18 Blood Pressure [Ri ght Upper Arm] 136/82 136/82 Pulse Oximetry 95 100 100 Oxygen Delivery [facility] Room Air Room Air 08/14/22 10:30 08/14/22 11:30 08/14/22 12:00 Temperature Pulse Rate [Right Pulse Oximeter] Respiratory Rate Blood Pressure [Ri ght Upper Arm] 143/89 H 149/110 H 145/86 H Pulse Oximetry Oxygen Delivery [facility] 08/14/22 12:30 08/14/22 13:00 08/14/22 13:30 Temperature Pulse Rate [Right Pulse Oximeter] Respiratory Rate Blood Pressure [Ri ght Upper Arm] 156/98 H 160/99 H 156/113 H Pulse Oximetry Oxygen Delivery [facility] 08/14/22 14:00 Temperature Pulse Rate [Right Pulse Oximeter] Respiratory Rate Blood Pressure [Ri ght Upper Arm] 167/110 H Pulse Oximetry Oxygen Delivery [facility] Hospitalist - H&P: Result Labs Labs: Short CBC 08/14/22 Range/Units 10:55 WBC 11.36 H (4.50-11.00) K/uL Hgb 10.2 L (12.0-16.0) gm/dL Hct 31.8 L (33.0-51.0) % Plt Count 309 (140-440) K/uL BMP 08/14/22 10:55 Sodium 135 Potassium 4.9 Chloride 111 Carbon Dioxide 19 L BUN 43 H Creatinine 2.4 H Glucose 239 H Calcium 8.8 Cardiac Enzymes 08/14/22 Range/Units 10:55 Troponin I 0.10 H* (0.01-0.04) ng/mL Liver Function 08/14/22 Range/Units 10:55 Total Bilirubin 0.4 (0.1-1.5) mg/dL AST 33 (12-35) U/L ALT 22 (4-35) U/L Alkaline Phosphatase 95 (40-150) U/L Albumin 3.0 L (3.3-5.0) g/dL Urine 08/14/22 Range/Units 11:55 Urine Color Light yellow (Yellow) Urine Appearance Slightly Cloudy A (Clear) Urine pH 7.5 (5.0-8.5) Ur Specific [place] 1.020 (1.000-1.030) Urine Protein 3+ A (Negative) Urine Glucose (UA) 2+ A (Negative) Assessment and Plan Assessment and plan (1) Acute on chronic clinical systolic heart failure: Problem comment: -discussed with Cardiology, less likely ischemic more likely meth toxicity -IV Lasix, ins and outs, daily weights trend electrolytes. transition to [facility]. Currently on room air -guideline directed therapy: Coreg, lisinopril, aspirin, Lipitor, plavix Status: Acute (2) Methamphetamine abuse: Problem comment: Her methamphetamine abuse and tobacco abuse are at the core of lot of her medical problem Status: Acute (3) Type 1 diabetes mellitus with diabetic autonomic (poly)neuropathy: Problem comment: Sliding scale insulin, Lantus. Q.i.d. glucose checks Status: Acute (4) CKD (chronic kidney disease) stage 4, GFR 15-29 ml/min: Problem comment: Trend avoid nephrotoxic therapies Status: Acute (5) Tobacco abuse: Problem comment: Nicotine gum and inhalers Status: Acute (6) Sleep apnea: Problem comment: Noted, will use supplemental O2 as needed Status: Acute (7) Nephrotic range proteinuria: Problem comment: Noted following Status: Acute (8) Asthma: Problem comment: Albuterol and DuoNebs p.r.n. Status: Acute (9) ASHD (arteriosclerotic heart disease): Problem comment: While her initial troponin is 0.10 she also has a GFR of about 25, with the she is probably not clearing her troponin and I will trend this. Cardiology felt like this was likely not ischemic. Status: Acute
[2022-08-14] MEDS: FUROSEMIDE 10 MG/ML inj 40 MG IVP (16:05)
[2022-08-14] MEDS: HYDROCODONE-ACETAMIN 5-325 MG 1 TAB PO (16:05)
[2022-08-14] MEDS: PANTOPRAZOLE SODIUM 40 MG INJ IVP (16:05)
[2022-08-14] MEDS: lisinopriL 10 MG TABLET PO (16:05)
[2022-08-14 16:08] LABS: Procalcitonin* 0.12 ng/mL (<0.50)
[2022-08-14 16:24] LABS: Hemoglobin A1C* 8.51 % (0-5.6)
[2022-08-14] MEDS: METOCLOPRAMIDE 10 MG TABLET 5 MG PO (17:42)
[2022-08-14] MEDS: CLOPIDOGREL 75 MG TABLET PO (17:43)
--- NOTE | 2022-08-14 19:53 | PC.NURSE ---
Nursing Care Hours: [id number] Pt this shift up from the ED about 1430 on stretcher, assisted to slide transfer into bed. Pt c/o pain L lateral torso from fall. Computer Programmer observed no redness, swelling, or bruising. Supplied ice pack and pain control per eMAR. Pt lethargic but responsive. Pt keeps eyes closed during conversation and cares, only opened eyes to receive medications. Observed eating with eyes closed. Skin looking pale and jaundice around face. Tunneling scars noted over back and upper thighs as well as torso. 1 assist to bathroom using walker and gait belt. Pt unsteady, leaning to the right and pt anxious about falling. Requested a urinary catheter but database report writer assured pt that 1 or 2 people will be available to help her to bathroom. Also offered BSC. Computer Programmer explained to pt that movement is important to decrease chances of developing pneumonia. Pt states they understand and willing to try BSC. 2 person assist needed with BSC to help pull up briefs and the other to keep pt stable. Pt c/o pain during movement. TELE set up, NSR with low to flat T waves.
[2022-08-14] MEDS: ATORVASTATIN CALCIUM 40 MG TABLET 80 MG PO (21:34)
[2022-08-14] MEDS: carvediloL 6.25 MG TABLET PO (21:35)
[2022-08-14] MEDS: ENOXAPARIN 40 MG/0.4 ML INJ SUBCUT (21:36)
[2022-08-14] MEDS: MIRTAZAPINE 15 MG TABLET PO (21:39)
[2022-08-14] MEDS: SODIUM CHLORIDE 0.9 % (FLUSH) 10 ML SYRINGE 5 ML IVF (21:40)
[2022-08-15] VITALS (9 sets, daily range): BP systolic 136–149; BP diastolic 78–88; PULSE 71–85; RESP 14–16; TEMP 36.4–37; O2SAT 95–98
--- NOTE | 2022-08-15 07:00 | PC.NURSE ---
pt continues to c/o left abdominal pain. She states its from the fall. No bruising, swelling, or break in the skin. Declined pain med when offered. Up to the bedside commode x2. Urine is yellow and clear.
[2022-08-15 07:10] LABS: Ionized Calcium* 1.23 mmol/L (1.11-1.30)
[2022-08-15 07:18] LABS: Hematocrit 31.7 % (33.0-51.0); Hemoglobin* 10.2 gm/dL (12.0-16.0); Mean Corpuscular HGB Conc 32 gm/dL (32-36); Mean Corpuscular Hemoglobin 29 pg (26-34); Mean Corpuscular Volume 90 fL (80-100); Platelet Count* 307 K/uL (140-440); Red Blood Count 3.51 m/uL (4.00-5.20); White Blood Count* 10.48 K/uL (4.50-11.00)
[2022-08-15 07:19] LABS: Slide Review Reflex No
[2022-08-15 07:37] LABS: Chloride* 112 mmol/L (96-114); Potassium* 4.3 mmol/L (3.6-5.1); Sodium* 138 mmol/L (135-149)
[2022-08-15 07:40] LABS: Blood Urea Nitrogen* 43 mg/dL (7-30); Carbon Dioxide* 22 mmol/L (20-32); Creatinine* 2.5 mg/dL (0.5-1.5); Est. Creatinine Clearance* 20.32; Estimated Glomerular Filt Rate 23 ml/min
[2022-08-15 07:41] LABS: Calcium* 8.8 mg/dL (8.4-10.6); Glucose* 143 mg/dL (60-115); Magnesium* 1.8 mg/dL (1.5-2.6)
[2022-08-15 07:51] LABS: Troponin I* 0.11 ng/mL (0.01-0.04)
[2022-08-15 08:20] LABS: NT Pro B Type NatriureticPept* 29500 pg/mL
[2022-08-15] MEDS: FUROSEMIDE 10 MG/ML inj 40 MG IVP ×3 (08:30→20:58)
[2022-08-15] MEDS: METOCLOPRAMIDE 10 MG TABLET 5 MG PO ×3 (08:31→17:50)
[2022-08-15] MEDS: CYANOCOBALAMIN (VITAMIN B-12) 500 MCG TABLET 1000 MCG PO (08:31)
[2022-08-15] MEDS: carvediloL 6.25 MG TABLET PO ×2 (08:31→20:58)
[2022-08-15] MEDS: CLOPIDOGREL 75 MG TABLET PO (08:31)
[2022-08-15] MEDS: lisinopriL 10 MG TABLET PO (08:32)
[2022-08-15] MEDS: ASPIRIN 81 MG TAB.CHEW PO (08:32)
[2022-08-15] MEDS: HYDROCODONE-ACETAMIN 5-325 MG 1 TAB PO ×3 (08:33→21:14)
[2022-08-15] MEDS: SODIUM CHLORIDE 0.9 % (FLUSH) 10 ML SYRINGE 5 ML IVF ×3 (08:36→20:58)
--- NOTE | 2022-08-15 10:07 | P.IMPN_ITS ---
Progress Note: A&P Assessment and plan (1) Acute on chronic clinical systolic heart failure: Problem details: - Dr. Tovar discussed with Cardiology on admission 08/14, symptoms are less likely ischemic, more likely meth toxicity - IV Lasix, ins and outs, daily weights trend electrolytes. transition to torsemide - not currently hypoxic - guideline directed therapy: Coreg, lisinopril, aspirin, Lipitor, plavix - troponin peaked at 0.11 - has associated weakness; working with therapies Status: Acute (2) Methamphetamine abuse: Problem details: - reviewed with patient that her methamphetamine abuse is directly contributing to her CHF; contemplative regarding cessation Status: Acute (3) Type 1 diabetes mellitus with diabetic autonomic (poly)neuropathy: Problem details: - sliding scale insulin, home regimen unclear - q.i.d. acute Status: Acute (4) CKD (chronic kidney disease) stage 4, GFR 15-29 ml/min: Problem details: - Trend, avoid nephrotoxic therapies Status: Acute (5) Tobacco abuse: Problem details: - Nicotine gum and inhalers Status: Acute (6) Sleep apnea: Problem details: - Noted, will use supplemental O2 as needed Status: Acute (7) Nephrotic range proteinuria: Problem details: - Noted, following Status: Acute (8) Asthma: Problem details: - Albuterol and DuoNebs p.r.n. Status: Acute (9) ASHD (arteriosclerotic heart disease): Problem details: - troponin peak @ 0.11. Cardiology felt like this was likely not ischemic Status: Acute (10) UTI (urinary tract infection): Problem details: - sensitivities pending; initiate Keflex (08/15) Status: Acute Plan - per above: Continuing IV Lasix, ASA/BB/ADITYA - aspirin and renally dosed Lovenox for prophylaxis - will likely require TCU stay upon discharge given profound weakness and comorbidities Subjective Date Seen: 08/15/22 Interval history: Joelle is lying in bed with her eyes closed when I see her this morning. She continues to have intermittent rib pain from her recent fall. She would also like to have a Casarez catheter placed given polyuria from diureti cs. Endorses weakness; has not yet started working with PT and OT. Repeat CXR this morning stable/improved. Urine culture from admission growing >100K GPC Exam Narrative: Exam Narrative: GEN: Laying in bed with eyes closed, appears chronically ill but not acutely toxic HEENT: Normal external ears, EOMIs bilaterally, no scleral icterus CV: RRR, No concerning murmurs, rubs, or gallops R: No wheezing, bibasilar rales Ext: wwp, no concerning edema Skin: No concerning skin lesions or rashes on exposed skin Psych: Appears mildly anhedonic Const: Vital Signs, click to edit/add: Vital Signs - 24 hr 08/14/22 10:28 08/14/22 10:43 08/14/22 10:25 Temperature 97.2 F L 97.2 F L Pulse Rate Pulse Rate [Right Pulse Oximeter] 96 96 Respiratory Rate 18 18 Blood Pressure [Ri ght Arm] Blood Pressure [Ri ght Upper Arm] 136/82 136/82 Pulse Oximetry 95 100 [facility] 08/14/22 10:30 08/14/22 11:30 08/14/22 12:00 Temperature Pulse Rate Pulse Rate [Right Pulse Oximeter] Respiratory Rate Blood Pressure [Ri ght Arm] Blood Pressure [Ri ght Upper Arm] 143/89 H 149/110 H 145/86 H Pulse Oximetry Oxygen Delivery Ar thod 08/14/22 12:30 08/14/22 13:00 08/14/22 13:30 Temperature Pulse Rate Pulse Rate [Right Pulse Oximeter] Respiratory Rate Blood Pressure [Ri ght Arm] Blood Pressure [Ri ght Upper Arm] 156/98 H 160/99 H 156/113 H Pulse Oximetry Oxygen Delivery Ar thod 08/14/22 14:00 08/14/22 14:54 08/14/22 15:00 Temperature Pulse Rate Pulse Rate [Right Pulse Oximeter] 98 71 Respiratory Rate 18 18 Blood Pressure [Ri ght Arm] 151/108 H Blood Pressure [Ri ght Upper Arm] 167/110 H Pulse Oximetry [address] [facility] 08/14/22 15:15 08/14/22 15:15 08/14/22 14:54 Temperature Pulse Rate Pulse Rate [Right Pulse Oximeter] 98 Respiratory Rate 18 18 18 Blood Pressure [Ri ght Arm] 151/108 H Blood Pressure [Ri ght Upper Arm] Pulse Oximetry 98 98 [facility] Room Air Room Air 08/14/22 15:15 08/15/22 00:40 08/15/22 08:21 Temperature 97.8 F Pulse Rate 73 Pulse Rate [Right Pulse Oximeter] 74 Respiratory Rate 14 Blood Pressure [Ri ght Arm] 146/88 H Blood Pressure [Ri ght Upper Arm] Pulse Oximetry 96 96 Oxygen Delivery Me thod Room Air Labs Labs: Laboratory Results - last 24 hr 08/14/22 08/14/22 08/14/22 10:44 10:55 10:55 WBC 11.36 H RBC 3.51 L Hgb 10.2 L Hct 31.8 L MCV 91 MCH 29 MCHC 32 RDW Coeff of Santino 13.0 Plt Count 309 Neut % (Auto) 72.3 H Lymph % (Auto) 19.7 L [place] % (Auto) 6.1 Eos % (Auto) 1.0 Baso % (Auto) 0.7 Neut # (Auto) 8.20 H Lymph # (Auto) 2.20 [place] # (Auto) 0.70 Eos # (Auto) 0.10 Baso # (Auto) 0.10 Sodium 135 Potassium 4.9 Chloride 111 Carbon Dioxide 19 L BUN 43 H Creatinine 2.4 H Estimated Creat Clear 21.16 Estimated GFR 24 Glucose 239 H Hemoglobin A1c Calcium 8.8 Ionized Calcium Jairon Magnesium 1.9 Total Bilirubin 0.4 AST 33 ALT 22 Alkaline Phosphatase 95 Troponin I 0.10 H* NT-Pro-B Natriuret Pep 50921 Total Protein 6.1 Albumin 3.0 L Procalcitonin 0.12 TSH Urine Color Urine Appearance Urine pH Ur Specific [place] Urine Protein Urine Glucose (UA) Urine Ketones Urine Blood Urine Nitrite Urine Bilirubin Urine Urobilinogen Ur Leukocyte Esterase Urine RBC Urine WBC Ur Squamous Epith Cells Urine Bacteria Urine Opiates Screen Negative Ur Oxycodone Screen Negative Urine Methadone Screen Negative Ur Propoxyphene Screen Negative Ur Barbiturates Screen Negative U Tricyclic Antidepress Negative Ur Phencyclidine Scrn Negative Ur Amphetamines Screen POSITIVE A* U Methamphetamines Scrn POSITIVE A* U Benzodiazepines Scrn Negative Urine Cocaine Screen Negative U Marijuana (THC) Screen Negative Ur Drug Screen Comment See Note SARS-CoV-2 (PCR) Influenza Type A (PCR) Influenza Type B (PCR) RSV (PCR) 08/14/22 08/14/22 08/14/22 10:55 10:55 11:55 WBC RBC Hgb Hct MCV MCH MCHC RDW Coeff of Santino Plt Count Neut % (Auto) Lymph % (Auto) [place] % (Auto) Eos % (Auto) Baso % (Auto) Neut # (Auto) Lymph # (Auto) [place] # (Auto) Eos # (Auto) Baso # (Auto) Sodium Potassium Chloride Carbon Dioxide BUN Creatinine Estimated Creat Clear Estimated GFR Glucose Hemoglobin A1c 8.51 H Calcium Ionized Calcium Jairon Magnesium Total Bilirubin AST ALT Alkaline Phosphatase Troponin I NT-Pro-B Natriuret Pep Total Protein Albumin Procalcitonin TSH 3.970 Urine Color Light yellow Urine Appearance Slightly Cloudy A Urine pH 7.5 Ur Specific [place] 1.020 Urine Protein 3+ A Urine Glucose (UA) 2+ A Urine Ketones Negative Urine Blood Trace-lysed A Urine Nitrite Negative Urine Bilirubin Negative Urine Urobilinogen 0.2 Ur Leukocyte Esterase Negative Urine RBC 2-5 A Urine WBC 2-5 Ur Squamous Epith Cells None Urine Bacteria Few A Urine Opiates Screen Ur Oxycodone Screen Urine Methadone Screen Ur Propoxyphene Screen Ur Barbiturates Screen U Tricyclic Antidepress Ur Phencyclidine Scrn Ur Amphetamines Screen U Methamphetamines Scrn U Benzodiazepines Scrn Urine Cocaine Screen U Marijuana (THC) Screen Ur Drug Screen Comment SARS-CoV-2 (PCR) Influenza Type A (PCR) Influenza Type B (PCR) RSV (PCR) 08/14/22 08/14/22 08/14/22 13:02 13:13 16:11 WBC RBC Hgb Hct MCV MCH MCHC RDW Coeff of Santino Plt Count Neut % (Auto) Lymph % (Auto) [place] % (Auto) Eos % (Auto) Baso % (Auto) Neut # (Auto) Lymph # (Auto) [place] # (Auto) Eos # (Auto) Baso # (Auto) Sodium Potassium Chloride Carbon Dioxide BUN Creatinine Estimated Creat Clear Estimated GFR Glucose Hemoglobin A1c Calcium Ionized Calcium Jairon Magnesium Total Bilirubin AST ALT Alkaline Phosphatase Troponin I 0.10 H* NT-Pro-B Natriuret Pep Total Protein Albumin Procalcitonin TSH Urine Color Urine Appearance Urine pH Ur Specific [place] Urine Protein Urine Glucose (UA) Urine Ketones Urine Blood Urine Nitrite Urine Bilirubin Urine Urobilinogen Ur Leukocyte Esterase Urine RBC Urine WBC Ur Squamous Epith Cells Urine Bacteria Urine Opiates Screen Ur Oxycodone Screen Urine Methadone Screen Ur Propoxyphene Screen Ur Barbiturates Screen U Tricyclic Antidepress Ur Phencyclidine Scrn Ur Amphetamines Screen U Methamphetamines Scrn U Benzodiazepines Scrn Urine Cocaine Screen U Marijuana (THC) Screen Ur Drug Screen Comment SARS-CoV-2 (PCR) Cancelled Negative SARS-CoV-2 Influenza Type A (PCR) Negative PCR FLU A Influenza Type B (PCR) Negative PCR FLU B RSV (PCR) Negative PCR RSV 08/15/22 08/15/22 08/15/22 06:47 06:47 06:47 WBC 10.48 RBC 3.51 L Hgb 10.2 L Hct 31.7 L MCV 90 MCH 29 MCHC 32 RDW Coeff of Santino Plt Count 307 Neut % (Auto) Lymph % (Auto) [place] % (Auto) Eos % (Auto) Baso % (Auto) Neut # (Auto) Lymph # (Auto) [place] # (Auto) Eos # (Auto) Baso # (Auto) Sodium 138 Potassium 4.3 Chloride 112 Carbon Dioxide 22 BUN 43 H Creatinine 2.5 H Estimated Creat Clear 20.32 Estimated GFR 23 Glucose 143 H Hemoglobin A1c Calcium 8.8 Ionized Calcium Jairon 1.23 Magnesium 1.8 Total Bilirubin AST ALT Alkaline Phosphatase Troponin I 0.11 H* NT-Pro-B Natriuret Pep 70348 Total Protein Albumin Procalcitonin TSH Urine Color Urine Appearance Urine pH Ur Specific [place] Urine Protein Urine Glucose (UA) Urine Ketones Urine Blood Urine Nitrite Urine Bilirubin Urine Urobilinogen Ur Leukocyte Esterase Urine RBC Urine WBC Ur Squamous Epith Cells Urine Bacteria Urine Opiates Screen Ur Oxycodone Screen Urine Methadone Screen Ur Propoxyphene Screen Ur Barbiturates Screen U Tricyclic Antidepress Ur Phencyclidine Scrn Ur Amphetamines Screen U Methamphetamines Scrn U Benzodiazepines Scrn Urine Cocaine Screen U Marijuana (THC) Screen Ur Drug Screen Comment SARS-CoV-2 (PCR) Influenza Type A (PCR) Influenza Type B (PCR) RSV (PCR)
--- NOTE | 2022-08-15 10:33 | CRLHL7_ITS ---
For Patients: As a result of the Century Cures Act, medical imaging exams and procedure reports are released immediately into your electronic medical record. You may view this report before your referring provider. If you have questions, please contact your health care provider. Indication: Congestive heart failure Technique: Chest 1 view Comparison: Chest CT 08/14/2022 Findings/Impression: Cardiovascular and mediastinum: Heart size and vasculature are normal in caliber and appearance. Lungs and pleural space: No pneumothorax. Trace right pleural effusion question. Slight interstitial prominence, likely minimal edema although this appears improved compared to the contracting analyst image of 1 day prior. Bones and soft tissues: No acute findings. Dictated by Tao Chong MD @ 08/15/2022 12:00:47 PM (Electronically Signed)
[2022-08-15 14:29] LABS: Troponin I* 0.09 ng/mL (0.01-0.04)
--- NOTE | 2022-08-15 15:53 | PC.NURSE ---
Pt drowsy but oriented x3. Pt reports pain 10/10 on flank pain with movement, pain managed with PRN medications see OCT. X-ray confirms no fracture, no bruises noted. Pt denies N/V, chest pain, and SOB. Pt is up with A2 with pivoting from bed to commode. A 16 malay winter was placed at 1440. Right sided weakness due to prior stroke, pillow to right side due to mild right sided deficit. Pt able to feed self.
[2022-08-15] MEDS: cephALEXin 250 MG CAPSULE PO ×2 (17:50→23:34)
--- NOTE | 2022-08-15 19:30 | PC.NURSE ---
Assumed care of this patient from Kimberley Langley RN @ 1500. Pt is sleepy and lethargic at initial intervention. Flat affect, cooperative with cares. BG 169 prior to dinner and pt received 3 units of SS insulin. In addition she took keflex PO 250 mg and 5 mg of Reglan. Tolerated 100% of her dinner. Casarez to DD since it was inserted at 1420 this afternoon. Tele indicates NSR. Report to Reginaldo MEDELLIN for night auditor.
[2022-08-15] MEDS: ATORVASTATIN CALCIUM 40 MG TABLET 80 MG PO (20:57)
[2022-08-15] MEDS: ENOXAPARIN 30 MG/0.3ML INJ SUBCUT (20:57)
[2022-08-15] MEDS: MIRTAZAPINE 15 MG TABLET PO (20:58)
--- NOTE | 2022-08-15 21:41 | PC.SOCIAL ---
Informed by therapy that pt will need rehab and potentially substance abuse treatment. Confirmed with charge nurse that pt is not ready for discharge today. Met with pt in pt's room to discuss substance abuse treatment. Pt stated she is not interested in getting substance abuse treatment at this time. Discussed if pt would consider therapy services if deemed appropriate and pt stated she would consider, but does not want substance abuse treatment information. Provided information to charge nurse. Social Work will follow up as necessary.
[2022-08-16] VITALS (8 sets, daily range): BP systolic 110–150; BP diastolic 71–83; PULSE 74–81; RESP 16–20; TEMP 36.1–37; O2SAT 93–98
--- NOTE | 2022-08-16 07:25 | PC.NURSE ---
VSS on RA. Patient is alert and oriented x4, able to verbalize needs to staff. Pain managed with [place] x1. Casarez cath in place draining well. Pt is continent of bowel. Assist of one with transfers.
[2022-08-16 08:19] LABS: Ionized Calcium* 1.21 mmol/L (1.11-1.30)
[2022-08-16 08:22] LABS: Basophils Percent Auto 0.7 % (0.0-3.0); Hematocrit 31.5 % (33.0-51.0); Hemoglobin* 10.2 gm/dL (12.0-16.0); Immature Granulocytes Pct Auto 0.2 %; Mean Corpuscular HGB Conc 32 gm/dL (32-36); Mean Corpuscular Hemoglobin 29 pg (26-34); Mean Corpuscular Volume 89 fL (80-100); Monocytes Percent Auto 7.3 % (0.0-11.0); Neutrophils Percent Auto 59.8 % (42.0-72.0); Platelet Count* 294 K/uL (140-440); RDW Coefficient of Variation % 13.1 % (11.5-15.5); Red Blood Count 3.53 m/uL (4.00-5.20); White Blood Count* 11.81 K/uL (4.50-11.00)
[2022-08-16 08:28] LABS: Slide Review Reflex No
[2022-08-16 08:37] LABS: Chloride* 112 mmol/L (96-114); Potassium* 3.6 mmol/L (3.6-5.1); Sodium* 139 mmol/L (135-149)
[2022-08-16 08:40] LABS: Blood Urea Nitrogen* 55 mg/dL (7-30); Calcium* 9.1 mg/dL (8.4-10.6); Carbon Dioxide* 20 mmol/L (20-32); Creatinine* 2.9 mg/dL (0.5-1.5); Est. Creatinine Clearance* 17.51; Estimated Glomerular Filt Rate 19 ml/min; Glucose* 126 mg/dL (60-115); Magnesium* 1.7 mg/dL (1.5-2.6)
[2022-08-16] MEDS: cephALEXin 250 MG CAPSULE PO (09:42)
[2022-08-16] MEDS: METOCLOPRAMIDE 10 MG TABLET 5 MG PO (09:43)
[2022-08-16] MEDS: CYANOCOBALAMIN (VITAMIN B-12) 500 MCG TABLET 1000 MCG PO (09:43)
[2022-08-16] MEDS: ASPIRIN 81 MG TAB.CHEW PO (09:45)
[2022-08-16] MEDS: carvediloL 6.25 MG TABLET PO ×2 (09:46→21:33)
[2022-08-16] MEDS: lisinopriL 10 MG TABLET PO (09:46)
[2022-08-16] MEDS: FUROSEMIDE 10 MG/ML inj 40 MG IVP ×2 (09:47→21:33)
[2022-08-16] MEDS: HYDROCODONE-ACETAMIN 5-325 MG 1 TAB PO (09:49)
[2022-08-16] MEDS: CLOPIDOGREL 75 MG TABLET PO (09:49)
[2022-08-16] MEDS: SODIUM CHLORIDE 0.9 % (FLUSH) 10 ML SYRINGE 5 ML IVF ×2 (09:52→21:35)
--- NOTE | 2022-08-16 17:47 | P.IMPN_ITS ---
Progress Note: A&P Assessment and plan (1) Acute on chronic clinical systolic heart failure: Problem details: - Dr. Tovar discussed with Cardiology on admission 08/14, symptoms are less likely ischemic, more likely meth toxicity - IV Lasix, ins and outs, daily weights trend electrolytes. transition to torsemide - not currently hypoxic - guideline directed therapy: Coreg, lisinopril, aspirin, Lipitor, plavix - troponin peaked at 0.11 - has associated weakness; working with therapies Status: Acute (2) Methamphetamine abuse: Problem details: - reviewed with patient that her methamphetamine abuse is directly contributing to her CHF; contemplative regarding cessation Status: Acute (3) Type 1 diabetes mellitus with diabetic autonomic (poly)neuropathy: Problem details: - sliding scale insulin, home regimen unclear - q.i.d. acute Status: Acute (4) CKD (chronic kidney disease) stage 4, GFR 15-29 ml/min: Problem details: - Trend, avoid nephrotoxic therapies Status: Acute (5) Tobacco abuse: Problem details: - Nicotine gum and inhalers Status: Acute (6) Sleep apnea: Problem details: - Noted, will use supplemental O2 as needed Status: Acute (7) Nephrotic range proteinuria: Problem details: - Noted, following Status: Acute (8) Asthma: Problem details: - Albuterol and DuoNebs p.r.n. Status: Acute (9) ASHD (arteriosclerotic heart disease): Problem details: - troponin peak @ 0.11. Cardiology felt like this was likely not ischemic Status: Acute (10) UTI (urinary tract infection): Problem details: - sensitivities pending; initiate Keflex (08/15) Status: Acute Plan - BUN and creatinine are increasing. She appears hypovolemic now. Decrease Lasix to twice a day and continue to monitor. - aspirin and renally dosed Lovenox for prophylaxis - will likely require TCU stay upon discharge given profound weakness and comorbidities Subjective Time Seen by Provider: 14:30 Date Seen: 08/16/22 Interval history: November denies complaints. When I ask her what she did with therapy today, she did give me details about ambulating in the damian down to the waiting room. Exam Narrative: Exam Narrative: General: No acute distress. Awake, alert, oriented x3. No pallor. No jaundice. Affect is withdrawn, she is making no eye contact in fact looking away and closes her eyes. Oropharynx: Clear. Mucous membranes dry. Cardiovascular: Regular rate and rhythm. No murmurs, gallops, or rubs. Respiratory: Clear to auscultation bilaterally. No wheezes or crackles. Abdomen: Bowel sounds present. Soft, nondistended, nontender. Extremities: No pedal edema. Const: Vital Signs, click to edit/add: Vital Signs - 24 hr 08/15/22 23:00 08/16/22 03:00 08/16/22 07:47 Temperature 97.9 F 96.9 F L Pulse Rate 80 Pulse Rate [Right Pulse Oximeter] 85 79 Respiratory Rate 16 16 Blood Pressure [Ri ght Arm] 146/87 H 138/79 Pulse Oximetry 98 Oxygen Delivery Me thod Room Air 08/16/22 08:00 08/15/22 19:00 08/15/22 23:00 Temperature 98.3 F 98.2 F Pulse Rate Pulse Rate [Right Pulse Oximeter] 74 82 Respiratory Rate 20 16 Blood Pressure [Ri ght Arm] 110/72 149/81 H Pulse Oximetry 93 96 95 Oxygen Delivery Me thod Room Air Room Air 08/15/22 23:00 Temperature Pulse Rate Pulse Rate [Right Pulse Oximeter] 82 Respiratory Rate 16 Blood Pressure [Ri ght Arm] Pulse Oximetry Oxygen Delivery Me thod Labs Labs: Laboratory Results - last 24 hr 08/16/22 08/16/22 08/16/22 08:13 08:13 08:13 WBC 11.81 H RBC 3.53 L Hgb 10.2 L Hct 31.5 L MCV 89 MCH 29 MCHC 32 RDW Coeff of Santino 13.1 Plt Count 294 Neut % (Auto) 59.8 Lymph % (Auto) 29.0 [place] % (Auto) 7.3 Eos % (Auto) 3.0 Baso % (Auto) 0.7 Neut # (Auto) 7.10 H Lymph # (Auto) 3.40 H [place] # (Auto) 0.90 Eos # (Auto) 0.40 Baso # (Auto) 0.10 Sodium 139 Potassium 3.6 Chloride 112 Carbon Dioxide 20 BUN 55 H Creatinine 2.9 H Estimated Creat Clear 17.51 Estimated GFR 19 Glucose 126 H Calcium 9.1 Ionized Calcium Jairon 1.21 Magnesium 1.7 Troponin I 0.10 H* NT-Pro-B Natriuret Pep
--- NOTE | 2022-08-16 21:21 | PC.NURSE ---
07-19: Pt. sleeping much of shift, agreed to walk in damian w/Ax2 once during PT, then back to bed. Noted pain in left ribs 05/19, but also dozing off and on. Pain meds given x1 w/relief. Pt. refused PO meds as well as insulin this evening, did not eat meal. RN spoke to significant other on telephone today, gave update. Pt. mostly not interested in interactions. Transferring w/walker and belt.
[2022-08-16] MEDS: ENOXAPARIN 30 MG/0.3ML INJ SUBCUT (21:32)
[2022-08-16] MEDS: MIRTAZAPINE 15 MG TABLET PO (21:33)
[2022-08-16] MEDS: ATORVASTATIN CALCIUM 40 MG TABLET 80 MG PO (21:34)
[2022-08-17] MEDS: cephALEXin 250 MG CAPSULE PO ×4 (00:25→23:32)
[2022-08-17 03:00] VITALS: BP 129/80; PULSE 80; RESP 18; TEMP 36.7; O2SAT 95
--- NOTE | 2022-08-17 06:31 | PC.NURSE ---
VSS on RA. Patient is alert and oriented x4, able to communicate needs to staff. Patient denies pain, headache and SOB. Continent of bowel and Casarez cath in place draining well. Assist of one with transfers. Patient tolerated all meds without swallowing concerns. Patient is stable in bed, call light with in reach.
[2022-08-17 07:08] LABS: Ionized Calcium* 1.32 mmol/L (1.11-1.30)
[2022-08-17 07:15] LABS: Hematocrit 33.8 % (33.0-51.0); Hemoglobin* 11.1 gm/dL (12.0-16.0); Mean Corpuscular HGB Conc 33 gm/dL (32-36); Mean Corpuscular Hemoglobin 29 pg (26-34); Mean Corpuscular Volume 88 fL (80-100); Platelet Count* 300 K/uL (140-440); Red Blood Count 3.84 m/uL (4.00-5.20); White Blood Count* 11.88 K/uL (4.50-11.00)
[2022-08-17 07:19] LABS: Slide Review Reflex No
[2022-08-17 07:28] LABS: Chloride* 110 mmol/L (96-114); Potassium* 3.4 mmol/L (3.6-5.1); Sodium* 140 mmol/L (135-149)
[2022-08-17 07:30] LABS: Creatinine* 2.7 mg/dL (0.5-1.5); Est. Creatinine Clearance* 18.81; Estimated Glomerular Filt Rate 21 ml/min
[2022-08-17 07:31] LABS: Blood Urea Nitrogen* 61 mg/dL (7-30); Carbon Dioxide* 23 mmol/L (20-32); Glucose* 151 mg/dL (60-115)
[2022-08-17 07:32] LABS: Calcium* 9.9 mg/dL (8.4-10.6); Magnesium* 1.7 mg/dL (1.5-2.6)
[2022-08-17 07:45] VITALS: BP 169/99; PULSE 71; RESP 16; TEMP 36.6; O2SAT 97; O2SAT 98
[2022-08-17 07:57] LABS: NT Pro B Type NatriureticPept* 29600 pg/mL; Troponin I* 0.08 ng/mL (0.01-0.04)
[2022-08-17] MEDS: CYANOCOBALAMIN (VITAMIN B-12) 500 MCG TABLET 1000 MCG PO (08:46)
[2022-08-17] MEDS: METOCLOPRAMIDE 10 MG TABLET 5 MG PO ×3 (08:47→17:54)
[2022-08-17] MEDS: ASPIRIN 81 MG TAB.CHEW PO (08:47)
[2022-08-17] MEDS: CLOPIDOGREL 75 MG TABLET PO (08:48)
[2022-08-17] MEDS: carvediloL 6.25 MG TABLET PO ×2 (08:48→21:36)
[2022-08-17] MEDS: lisinopriL 10 MG TABLET PO (08:48)
[2022-08-17] MEDS: HYDROCODONE-ACETAMIN 5-325 MG 1 TAB PO ×2 (08:48→21:46)
[2022-08-17 11:00] VITALS: BP 138/78; PULSE 76; RESP 16; TEMP 36.6; O2SAT 98
[2022-08-17] MEDS: FUROSEMIDE 20 MG TABLET 40 MG PO ×2 (12:45→18:00)
[2022-08-17 15:00] VITALS: BP 138/78; PULSE 73; PULSE 76; RESP 16; TEMP 36.6; O2SAT 98
--- NOTE | 2022-08-17 17:11 | PM.IMPN1 ---
Progress Note: A&P Assessment and plan (1) Acute on chronic clinical systolic heart failure: Problem details: - Dr. Tovar discussed with Cardiology on admission 08/14, symptoms are less likely ischemic, more likely meth toxicity - IV Lasix, ins and outs, daily weights trend electrolytes. transition to torsemide - not currently hypoxic - guideline directed therapy: Coreg, lisinopril, aspirin, Lipitor, plavix - troponin peaked at 0.11 - has associated weakness; working with therapies Status: Acute (2) Methamphetamine abuse: Problem details: - reviewed with patient that her methamphetamine abuse is directly contributing to her CHF; contemplative regarding cessation Status: Acute (3) Type 1 diabetes mellitus with diabetic autonomic (poly)neuropathy: Problem details: - sliding scale insulin, home regimen unclear - q.i.d. acute Status: Acute (4) CKD (chronic kidney disease) stage 4, GFR 15-29 ml/min: Problem details: - Trend, avoid nephrotoxic therapies Status: Acute (5) Tobacco abuse: Problem details: - Nicotine gum and inhalers Status: Acute (6) Sleep apnea: Problem details: - Noted, will use supplemental O2 as needed Status: Acute (7) Nephrotic range proteinuria: Problem details: - Noted, following Status: Acute (8) Asthma: Problem details: - Albuterol and DuoNebs p.r.n. Status: Acute (9) ASHD (arteriosclerotic heart disease): Problem details: - troponin peak @ 0.11. Cardiology felt like this was likely not ischemic Status: Acute (10) UTI (urinary tract infection): Problem details: - sensitivities pending; initiate Keflex (08/15) Status: Acute Plan - Creatinine has stabilized. Furosemide decreased yesterday. Transition to oral furosemide today and continue to monitor renal function. -iatrogenic hypokalemia from diuresis. Start low-dose potassium replacement and monitor. - aspirin and renally dosed Lovenox for prophylaxis - will likely require TCU stay upon discharge given profound weakness and comorbidities verses inpatient treatment for methamphetamine abuse. - left flank pain from fall: I have reviewed the CT scan done on admission. No traumatic findings on CT. Continue PT and OT, ice, heat, and p.r.n. acetaminophen. Subjective Time Seen by Provider: 09:00 Date Seen: 08/17/22 Interval history: November complained of left flank pain today. Exam Narrative: Exam Narrative: General: No acute distress. Awake, alert, oriented x3. No pallor. No jaundice. Affect is withdrawn, she is making no eye contact in fact looking away and closes her eyes. Oropharynx: Clear. Mucous membranes dry. Cardiovascular: Regular rate and rhythm. No murmurs, gallops, or rubs. Respiratory: Clear to auscultation bilaterally. No wheezes or crackles. Abdomen: Bowel sounds present. Soft, nondistended, writhes in pain with very light touch to skin over left flank and back (no pressure in touch). When I listened with my stethoscope, I was able to put pressure on the rosales in this area, and she did not flinch, cry out or indicate pain. Extremities: No pedal edema. Const: Vital Signs, click to edit/add: Vital Signs - 24 hr 08/16/22 19:00 08/16/22 23:00 08/17/22 03:00 Temperature 98 F 97.6 F 98.1 F Pulse Rate Pulse Rate [Right Pulse Oximeter] 81 79 80 Respiratory Rate 18 18 18 Blood Pressure [Ri ght Arm] 139/78 150/83 H 129/80 Pulse Oximetry 94 97 95 Oxygen Delivery Me thod Room Air Room Air Room Air 08/16/22 23:00 Temperature Pulse Rate 78 Pulse Rate [Right Pulse Oximeter] Respiratory Rate Blood Pressure [Ri ght Arm] Pulse Oximetry Oxygen Delivery Me thod Documenting provider has reviewed patient's vital signs: yes Labs Labs: Laboratory Results - last 24 hr 08/17/22 08/17/22 08/17/22 06:50 06:50 06:50 WBC 11.88 H RBC 3.84 L Hgb 11.1 L Hct 33.8 MCV 88 MCH 29 MCHC 33 Plt Count 300 Sodium 140 Potassium 3.4 L Chloride 110 Carbon Dioxide 23 BUN 61 H Creatinine 2.7 H Estimated Creat Clear 18.81 Estimated GFR 21 Glucose 151 H Calcium 9.9 Ionized Calcium Jairon 1.32 H Magnesium 1.7 Troponin I 0.08 H* NT-Pro-B Natriuret Pep [id number]
[2022-08-17] MEDS: POTASSIUM CHLORIDE 10 MEQ CAPSULE ER PO (17:53)
[2022-08-17 19:00] VITALS: BP 167/93; PULSE 85; RESP 18; TEMP 36.6; O2SAT 95
--- NOTE | 2022-08-17 19:43 | PC.NURSE ---
shift note: pt had elevated BPthis a.m 169/99. pt states she has c.pain. Pt lt flank pain and chest pain. pt received 1 norco for 910 pain with relief. Pt up 1/walker with rt l/e weakness. pt sleepy and requests to just sleep. Pt encouraged to sit in recliner for meals today. Pt has garbled speech. Pt keeps eyes closed with interactions. Iv dc'd intact Rt wrist due to infiltrate. maggy patent with 450cc output at 1400. LS clr.
[2022-08-17] MEDS: ENOXAPARIN 30 MG/0.3ML INJ SUBCUT (21:35)
[2022-08-17] MEDS: ATORVASTATIN CALCIUM 40 MG TABLET 80 MG PO (21:36)
[2022-08-17] MEDS: MIRTAZAPINE 15 MG TABLET PO (21:37)
[2022-08-17] MEDS: SODIUM CHLORIDE 0.9 % (FLUSH) 10 ML SYRINGE 5 ML IVF (21:39)
[2022-08-17 23:00] VITALS: BP 151/78; PULSE 85; RESP 18; TEMP 36.6
[2022-08-18] VITALS (9 sets, daily range): BP systolic 124–156; BP diastolic 67–97; PULSE 69–81; RESP 16–18; TEMP 36.2–36.7; O2SAT 93–98
[2022-08-18 06:29] LABS: Ionized Calcium* 1.33 mmol/L (1.11-1.30)
[2022-08-18 06:33] LABS: Hematocrit 34.8 % (33.0-51.0); Hemoglobin* 11.4 gm/dL (12.0-16.0); Mean Corpuscular HGB Conc 33 gm/dL (32-36); Mean Corpuscular Hemoglobin 29 pg (26-34); Mean Corpuscular Volume 88 fL (80-100); Platelet Count* 322 K/uL (140-440); Red Blood Count 3.96 m/uL (4.00-5.20); White Blood Count* 11.74 K/uL (4.50-11.00)
[2022-08-18 06:36] LABS: Slide Review Reflex No
[2022-08-18 07:12] LABS: Chloride* 106 mmol/L (96-114); Sodium* 137 mmol/L (135-149)
[2022-08-18 07:13] LABS: Potassium* 3.7 mmol/L (3.6-5.1)
[2022-08-18 07:15] LABS: Carbon Dioxide* 24 mmol/L (20-32); Creatinine* 2.8 mg/dL (0.5-1.5); Est. Creatinine Clearance* 18.14; Estimated Glomerular Filt Rate 20 ml/min
[2022-08-18 07:16] LABS: Blood Urea Nitrogen* 67 mg/dL (7-30); Glucose* 140 mg/dL (60-115); Magnesium* 1.7 mg/dL (1.5-2.6)
--- NOTE | 2022-08-18 07:16 | PC.NURSE ---
VSS On RA. Patient is alert and oriented x3, able to communicate needs to staff. Patient c/o pain, PRN [place] x1 with relief. Casarez cath is patent and draining adequately. Patient was in bed throughout this shift.
[2022-08-18 07:31] LABS: NT Pro B Type NatriureticPept* 27900 pg/mL; Troponin I* 0.06 ng/mL (0.01-0.04)
[2022-08-18] MEDS: cephALEXin 250 MG CAPSULE PO ×3 (09:03→22:42)
[2022-08-18] MEDS: METOCLOPRAMIDE 10 MG TABLET 5 MG PO ×3 (09:04→18:21)
[2022-08-18] MEDS: FUROSEMIDE 20 MG TABLET PO ×2 (09:04→13:34)
[2022-08-18] MEDS: CYANOCOBALAMIN (VITAMIN B-12) 500 MCG TABLET 1000 MCG PO (09:05)
[2022-08-18] MEDS: lisinopriL 10 MG TABLET PO (09:05)
[2022-08-18] MEDS: POTASSIUM CHLORIDE 10 MEQ CAPSULE ER PO ×2 (09:05→18:20)
[2022-08-18] MEDS: carvediloL 6.25 MG TABLET PO (09:05)
[2022-08-18] MEDS: CLOPIDOGREL 75 MG TABLET PO (09:05)
[2022-08-18] MEDS: ASPIRIN 81 MG TAB.CHEW PO (09:06)
[2022-08-18] MEDS: HYDROCODONE-ACETAMIN 5-325 MG 1 TAB PO ×3 (09:25→18:25)
--- NOTE | 2022-08-18 10:21 | CRLHL7_ITS ---
For Patients: As a result of the Century Cures Act, medical imaging exams and procedure reports are released immediately into your electronic medical record. You may view this report before your referring provider. If you have questions, please contact your health care provider. INDICATION: Fall 1 week ago. Head pain. TECHNIQUE: Noncontrast CT images acquired through the brain. COMPARISON: None. FINDINGS: Prominence of the ventricles and sulci compatible with mild diffuse cerebral volume loss. No mass effect or midline shift. The salgado-white differentiation is maintained. Small to moderate encephalomalacia within the posterolateral left temporal lobe, favored to represent chronic infarction. Chronic lacunar infarctions are visualized within the bilateral basal ganglia, thalami, corpus callosum, left hemipons, and right cerebellar hemisphere. No acute intracranial hemorrhage or pathologic extra-axial fluid collection. Patchy hypoattenuation in the supratentorial white matter, suggestive of [id number] chronic microvascular changes. Dense intracranial atherosclerotic calcifications. The globes are symmetric. The calvarium is intact. The paranasal sinuses are clear. The paranasal sinuses and mastoid air cells are clear. IMPRESSION: 1. No acute intracranial hemorrhage or mass effect. 2. Small to moderate encephalomalacia within the posterolateral left temporal lobe, favored to represent a chronic infarction. Chronic lacunar infarctions are visualized within the bilateral basal ganglia, thalami, corpus callosum, kurt, and right cerebellar hemisphere. 3. Suggested [id number] chronic microvascular changes and mild diffuse cerebral volume loss. Please note that all CT scans at this facility use dose modulation, iterative reconstruction, and/or weight-based dosing when appropriate to reduce radiation dose to as low as reasonably achievable. Dictated by Giovanni Martínez MD @ 08/18/2022 11:10:54 AM (Electronically Signed)
[2022-08-18 12:55] LABS: Chloride* 105 mmol/L (96-114); Potassium* 3.9 mmol/L (3.6-5.1); Sodium* 138 mmol/L (135-149)
[2022-08-18 12:58] LABS: Blood Urea Nitrogen* 67 mg/dL (7-30); Carbon Dioxide* 27 mmol/L (20-32); Creatinine* 2.9 mg/dL (0.5-1.5); Est. Creatinine Clearance* 17.51; Estimated Glomerular Filt Rate 19 ml/min
[2022-08-18 12:59] LABS: Glucose* 218 mg/dL (60-115)
--- NOTE | 2022-08-18 16:30 | CRLHL7_ITS ---
For Patients: As a result of the Century Cures Act, medical imaging exams and procedure reports are released immediately into your electronic medical record. You may view this report before your referring provider. If you have questions, please contact your health care provider. HISTORY: Dysconjugate gaze. COMPARISON: CT of the head from today. TECHNIQUE: MR examination of the brain was performed without contrast enhancement using a standard protocol. FINDINGS: There is restricted diffusion in the dorsal central kurt, slightly more prominent to the left, without hemorrhage or mass effect. This is seen to have slightly increased T2 signal on the FLAIR images and is seen to be slightly low in density on the CT from today, consistent with an acute, nonhemorrhagic lacunar infarction. The location is consistent with disruption of the medial longitudinal fasciculus on the left. There is a small focal area of restricted diffusion in the right central kurt, with minimal T2 signal abnormality, also seen to be slightly low in density on CT. This is consistent with an additional tiny acute, nonhemorrhagic lacunar infarction. An area that is bright on the diffusion weighted images is present in the anterior right periventricular white matter, axial image 41 series 5, but this is seen to be simply T2 shine through from small vessel ischemia. There is a moderate sized rounded area of encephalomalacia in the subcortical white matter in the left posterior temporal region, an old infarct in the left posterior inferior NEW BUSINESS CLERK territory. There is no sign of any restricted diffusion or hemorrhage in this region. There is mild dilatation of the ventricles and sulci representing mild, age-appropriate atrophy, with the left lateral ventricle being larger than the right, within limits of normal variation. There is mild periventricular and subcortical white matter hypodensity from age appropriate small vessel ischemia. Old lacunar infarctions are scattered throughout the thalami bilaterally and in the right globus pallidus and putamen, and in the right external capsule. Additional old lacunar infarcts are seen in the anterior body of the right corpus callosum. There is an old small lacunar infarct in the right inferior cerebellar hemisphere, in the right PICA territory. The pituitary gland is normal in appearance. The visualized portions of the orbits are normal in appearance. The visualized paranasal sinuses and mastoids are clear. IMPRESSION: Small acute, nonhemorrhagic, lacunar infarct in the paramedian dorsal kurt, slightly more prominent to the left, without mass-effect. This is in a location consistent with disruption of the medial longitudinal fasciculus and would be consistent with the history of dysconjugate gaze. Tiny, acute, nonhemorrhagic, lacunar infarct in the right mid kurt. Small old infarct in the posterior left temporal subcortical white matter in the posterior inferior left NEW BUSINESS CLERK territory. Old small infarct in the right PICA territory. Multiple old lacunar infarcts and mild small vessel ischemic change consistent with patient age. Mild diffuse cerebral atrophy consistent with patient age. Dictated by Maximus Velazco MD @ 08/18/2022 6:27:42 PM (Electronically Signed)
--- NOTE | 2022-08-18 17:22 | P.IMPN_ITS ---
Progress Note: A&P Assessment and plan (1) Dysconjugate gaze: Problem details: Time of onset is unclear. She thinks it started on the day of admission, but I am finding no note about this previously. This is likely an ocular palsy, possibly viral. CT head done, shows encephalomalacia. MRI head pending. May need to discuss with neuro depending on MRI findings. Status: Acute (2) Acute on chronic clinical systolic heart failure: Problem details: - Dr. Tovar discussed with Cardiology on admission 08/14, symptoms are less likely ischemic, more likely meth toxicity - IV Lasix, ins and outs, daily weights trend electrolytes. transition to torsemide - not currently hypoxic - guideline directed therapy: Coreg, lisinopril, aspirin, Lipitor, plavix - troponin peaked at 0.11 - has associated weakness; working with therapies - Decrease oral torsemide for hypovolemia, elevated BUN/Cr Status: Acute (3) Methamphetamine abuse: Problem details: - reviewed with patient that her methamphetamine abuse is directly contributing to her CHF; contemplative regarding cessation Status: Acute (4) Type 1 diabetes mellitus with diabetic autonomic (poly)neuropathy: Problem details: - sliding scale insulin, home regimen unclear - q.i.d. acute Status: Acute (5) CKD (chronic kidney disease) stage 4, GFR 15-29 ml/min: Problem details: - Trend, avoid nephrotoxic therapies Status: Acute (6) Tobacco abuse: Problem details: - Nicotine gum and inhalers Status: Acute (7) Sleep apnea: Problem details: - Noted, will use supplemental O2 as needed Status: Acute (8) Nephrotic range proteinuria: Problem details: - Noted, following Status: Acute (9) Asthma: Problem details: - Albuterol and DuoNebs p.r.n. Status: Acute (10) ASHD (arteriosclerotic heart disease): Problem details: - troponin peak @ 0.11. Cardiology felt like this was likely not ischemic Status: Acute (11) UTI (urinary tract infection): Problem details: - sensitivities pending; initiate Keflex (08/15) Status: Acute Plan - Creatinine has stabilized. Furosemide decreased yesterday. Transition to oral furosemide today and continue to monitor renal function. -iatrogenic hypokalemia from diuresis. Start low-dose potassium replacement and monitor. - aspirin and renally dosed Lovenox for prophylaxis - will likely require TCU stay upon discharge given profound weakness and comorbidities verses inpatient treatment for methamphetamine abuse. - left flank pain from fall: I have reviewed the CT scan done on admission. No traumatic findings on CT. Continue PT and OT, ice, heat, and p.r.n. acetaminophen. Subjective Time Seen by Provider: 10:10 Date Seen: 08/18/22 Interval history: When I walked in this morning Joelle had her eyes open and looked right at me. She said her right eye was funny and it had never been like that before. She did not complain of any pain and denied any other focal deficits however therapy noticed that she was leaning to the right today and seemed to have some right- sided weakness. November tells me she has never had anything like this before. Exam Narrative: Exam Narrative: General: No acute distress. Awake, alert, oriented x3. No pallor. No jaundice. Speech occasionally garbled, although this is not new. HEENT: Normocephalic atraumatic. Pupils equally round reactive to light. Right eye dysconjugate lateral gaze. Vision grossly intact. Cardiovascular: Regular rate and rhythm. No murmurs, gallops, or rubs. Respiratory: Clear to auscultation bilaterally. No wheezes or crackles. Abdomen: Bowel sounds present. Soft, nondistended, nontender. Extremities: No pedal edema. Neuro: As above. Joelle does the bare minimum when I ask her to follow commands. It is a challenging exam. Romberg is negative. Cranial nerves 2-12 are otherwise intact. Extraocular movements are full although right eye is dysconjugate. No nystagmus. No appreciable facial asymmetry. Tongue is midline. Peripheral vision and vision are grossly intact. Strength is 5/5 in all 4 extremities. DTRs intact and symmetric. Light touch sensation is intact in face body and extremities. Coordination is intact in upper and lower extremities. Const: Vital Signs, click to edit/add: Vital Signs - 24 hr 08/17/22 19:00 08/17/22 23:00 08/17/22 23:00 Temperature 98 F 98 F Pulse Rate Pulse Rate [Right Pulse Oximeter] 85 85 85 Respiratory Rate 18 18 18 Blood Pressure [Ri ght Arm] 167/93 H 151/78 H Pulse Oximetry 95 Oxygen Delivery Me thod Room Air 08/18/22 03:00 08/18/22 06:05 08/18/22 07:00 Temperature 97.6 F 97.6 F Pulse Rate 72 Pulse Rate [Right Pulse Oximeter] 81 70 Respiratory Rate 18 18 Blood Pressure [Ri ght Arm] 148/84 H 153/95 H Pulse Oximetry 96 98 Oxygen Delivery Me thod Room Air 08/18/22 07:00 08/18/22 07:19 08/18/22 07:00 Temperature Pulse Rate 69 Pulse Rate [Right Pulse Oximeter] 70 Respiratory Rate 18 Blood Pressure [Ri ght Arm] Pulse Oximetry 98 Oxygen Delivery Me thod 08/18/22 11:00 08/18/22 15:00 08/18/22 15:00 Temperature 97.1 F L 97.4 F L Pulse Rate Pulse Rate [Right Pulse Oximeter] 71 79 Respiratory Rate 16 16 Blood Pressure [Ri ght Arm] 151/72 H 156/97 H Pulse Oximetry 97 95 97 Oxygen Delivery Me thod Room Air Room Air 08/18/22 15:47 Temperature Pulse Rate 73 Pulse Rate [Right Pulse Oximeter] Respiratory Rate Blood Pressure [Ri ght Arm] Pulse Oximetry Oxygen Delivery Me thod Documenting provider has reviewed patient's vital signs: yes Labs Labs: Laboratory Results - last 24 hr 08/18/22 08/18/22 08/18/22 06:15 06:15 06:15 WBC 11.74 H RBC 3.96 L Hgb 11.4 L Hct 34.8 MCV 88 MCH 29 MCHC 33 Plt Count 322 Sodium 137 Potassium 3.7 Chloride 106 Carbon Dioxide 24 BUN 67 H Creatinine 2.8 H Estimated Creat Clear 18.14 Estimated GFR 20 Glucose 140 H Calcium 10.0 Ionized Calcium Jairon 1.33 H Magnesium 1.7 Troponin I 0.06 H* NT-Pro-B Natriuret Pep [id number] 08/18/22 12:25 WBC RBC Hgb Hct MCV MCH MCHC Plt Count Sodium 138 Potassium 3.9 Chloride 105 Carbon Dioxide 27 BUN 67 H Creatinine 2.9 H Estimated Creat Clear 17.51 Estimated GFR 19 Glucose 218 H Calcium 10.0 Ionized Calcium Jairon Magnesium Troponin I NT-Pro-B Natriuret Pep
--- NOTE | 2022-08-18 19:20 | P.IMPN_ITS ---
Subjective Date Seen: 08/18/22 Interval history: Cross cover Small acute, nonhemorrhagic, lacunar infarct in the paramedian dorsal kurt, slightly more prominent to the left, without mass-effect. This is in a location consistent with disruption of the medial longitudinal fasciculus and would be consistent with the history of dysconjugate gaze. Tiny, acute, nonhemorrhagic, lacunar infarct in the right mid kurt. Small old infarct in the posterior left temporal subcortical white matter in the posterior inferior left DIRECTOR OF DISTRIBUTION territory. Old small infarct in the right PICA territory. Multiple old lacunar infarcts and mild small vessel ischemic change consistent with patient age. Mild diffuse cerebral atrophy consistent with patient age. Will order neuro checks, tele, echo, lipid panel; a1c, therapy evaluation Exam Const: Vital Signs, click to edit/add: Vital Signs - 24 hr 08/17/22 23:00 08/17/22 23:00 08/18/22 03:00 Temperature 98 F 97.6 F Pulse Rate Pulse Rate [Right Pulse Oximeter] 85 85 81 Respiratory Rate 18 18 18 Blood Pressure [Ri ght Arm] 151/78 H 148/84 H Pulse Oximetry 96 Oxygen Delivery Me thod 08/18/22 06:05 08/18/22 07:00 08/18/22 07:00 Temperature 97.6 F Pulse Rate 72 Pulse Rate [Right Pulse Oximeter] 70 Respiratory Rate 18 Blood Pressure [Ri ght Arm] 153/95 H Pulse Oximetry 98 98 Oxygen Delivery Me thod Room Air 08/18/22 07:19 08/18/22 07:00 08/18/22 11:00 Temperature 97.1 F L Pulse Rate 69 Pulse Rate [Right Pulse Oximeter] 70 71 Respiratory Rate 18 16 Blood Pressure [Ri ght Arm] 151/72 H Pulse Oximetry 97 Oxygen Delivery Me thod Room Air 08/18/22 15:00 08/18/22 15:00 08/18/22 15:47 Temperature 97.4 F L Pulse Rate 73 Pulse Rate [Right Pulse Oximeter] 79 Respiratory Rate 16 Blood Pressure [Ri ght Arm] 156/97 H Pulse Oximetry 95 97 Oxygen Delivery Me thod Room Air Labs Labs: Laboratory Results - last 24 hr 08/18/22 08/18/22 08/18/22 06:15 06:15 06:15 WBC 11.74 H RBC 3.96 L Hgb 11.4 L Hct 34.8 MCV 88 MCH 29 MCHC 33 Plt Count 322 Sodium 137 Potassium 3.7 Chloride 106 Carbon Dioxide 24 BUN 67 H Creatinine 2.8 H Estimated Creat Clear 18.14 Estimated GFR 20 Glucose 140 H Calcium 10.0 Ionized Calcium Jairon 1.33 H Magnesium 1.7 Troponin I 0.06 H* NT-Pro-B Natriuret Pep 11354 08/18/22 12:25 WBC RBC Hgb Hct MCV MCH MCHC Plt Count Sodium 138 Potassium 3.9 Chloride 105 Carbon Dioxide 27 BUN 67 H Creatinine 2.9 H Estimated Creat Clear 17.51 Estimated GFR 19 Glucose 218 H Calcium 10.0 Ionized Calcium Jairon Magnesium Troponin I NT-Pro-B Natriuret Pep
--- NOTE | 2022-08-18 19:42 | PC.NURSE ---
End of shift-- Pt has been pleasant and cooperative. Alert and oriented, but remains drowsy. Slight left sided facial droop and slight left leg weakness noted. Right eye wanders toward pt's right side and pt stated that this is not her baseline. is aware. Pt had head CT and MRI today and tolerated both well. See EMR for details. She continually rates her pain in left side between 8-10 but rests in between cares. She was given [place] PRN and stated partial relief from that. Telemetry shows NSR. LS clear but diminished. IS was used with encouragement, but poor effort. She denied nausea and tolerated a regular diet, however pt struggled with motor skills and poor dentition. Some assistance was needed. She ate 100% of her breakfast, refused lunch and ate half her dinner. She stated no BM for days and was offered a laxative, but has so far declined. Blood sugars 130, 219 and 157 and pt was given insulin per sliding scale. She was up to the chair twice today with encouragement and assist of 1 and tolerated it fair. Pt leans to the right. Report to LACIE Lewis.
[2022-08-18] MEDS: ATORVASTATIN CALCIUM 40 MG TABLET 80 MG PO (21:06)
[2022-08-18] MEDS: ENOXAPARIN 30 MG/0.3ML INJ SUBCUT (21:06)
[2022-08-18] MEDS: MIRTAZAPINE 15 MG TABLET PO (21:07)
[2022-08-18] MEDS: SODIUM CHLORIDE 0.9 % (FLUSH) 10 ML SYRINGE 5 ML IVF (21:10)
[2022-08-19] VITALS (9 sets, daily range): BP systolic 127–182; BP diastolic 74–99; PULSE 72–89; RESP 16–20; TEMP 36.3–36.9; O2SAT 92–99
[2022-08-19] MEDS: ACETAMINOPHEN 325 MG TABLET PO ×2 (05:13→19:43)
--- NOTE | 2022-08-19 05:23 | ED.NURSE ---
Shift note: Pt is calm and relax and has been sleeping very well this shift. Pt complained of rib pin of 8/10 and Tylenol given was effective. Self-transferred to . CMS intact but still has diverging right eye.
[2022-08-19 06:13] LABS: Ionized Calcium* 1.37 mmol/L (1.11-1.30)
[2022-08-19 06:18] LABS: Hematocrit 34.8 % (33.0-51.0); Hemoglobin* 11.3 gm/dL (12.0-16.0); Mean Corpuscular HGB Conc 33 gm/dL (32-36); Mean Corpuscular Hemoglobin 29 pg (26-34); Mean Corpuscular Volume 89 fL (80-100); Platelet Count* 336 K/uL (140-440); Red Blood Count 3.92 m/uL (4.00-5.20); White Blood Count* 11.65 K/uL (4.50-11.00)
[2022-08-19 06:27] LABS: Slide Review Reflex No
[2022-08-19 06:33] LABS: Hemoglobin A1C* 8.25 % (0-5.6)
[2022-08-19 06:37] LABS: Chloride* 108 mmol/L (96-114); Potassium* 3.9 mmol/L (3.6-5.1); Sodium* 139 mmol/L (135-149)
[2022-08-19 06:39] LABS: Carbon Dioxide* 23 mmol/L (20-32); Cholesterol* 183 mg/dL (90-199); Creatinine* 2.9 mg/dL (0.5-1.5); Est. Creatinine Clearance* 17.51; Estimated Glomerular Filt Rate 19 ml/min
[2022-08-19 06:40] LABS: Blood Urea Nitrogen* 72 mg/dL (7-30); Calcium* 10.1 mg/dL (8.4-10.6); Glucose* 148 mg/dL (60-115); HDL Cholesterol* 49 mg/dL (>=50); LDL Cholesterol Calculated 114 mg/dL (<100); Triglycerides* 102 mg/dL (40-149)
[2022-08-19] MEDS: cephALEXin 250 MG CAPSULE PO ×3 (06:44→22:35)
[2022-08-19] MEDS: CLOPIDOGREL 75 MG TABLET PO (09:11)
[2022-08-19] MEDS: METOCLOPRAMIDE 10 MG TABLET 5 MG PO ×3 (09:11→18:21)
[2022-08-19] MEDS: POTASSIUM CHLORIDE 10 MEQ CAPSULE ER PO (09:11)
[2022-08-19] MEDS: ASPIRIN 81 MG TAB.CHEW PO (09:11)
[2022-08-19] MEDS: CYANOCOBALAMIN (VITAMIN B-12) 500 MCG TABLET 1000 MCG PO (09:11)
[2022-08-19] MEDS: SODIUM CHLORIDE 0.9 % (FLUSH) 10 ML SYRINGE 5 ML IVF ×2 (09:11→21:09)
--- NOTE | 2022-08-19 12:29 | PC.SOCIAL ---
Discharge planning: Met with pt regarding d/c plan. Pt states she needs to go to a senior care as she does not have the assistance needed at home. Pt [place] placement as near to [facility] [place], including [facility], [facility] and [facility]. Called all of these facilities. Received call back from [facility] stating they can not consider pt for admit due to her substance use history. There are no available beds in the [facility] facilities and have not heard back from [facility]. Met again with pt regarding issue of facilities being unable to meet her needs due to history of substance use. Pt states she is willing to accept assistance for her substance use [facility] and requested social services counselor contact [facility] which has both a PT/OT rehab and substance treatment support. Called and faxed [facility] and awaiting call back with decision on admit. Scocial worker to follow up as needed.
--- NOTE | 2022-08-19 14:08 | PM.IMPN1 ---
Progress Note: A&P Assessment and plan (1) Lacunar infarct, acute: Problem details: - I discussed this with Dr. Castro from [facility] 08/19/22. She was on just aspirin as an outpatient. 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 He recommended Plavix 75 mg daily. He did not think she needed dual platelet therapy for the stroke, but understood that she may needed for cardiac reasons. She is already on atorvastatin. Status: Acute (2) Dysconjugate gaze: Problem details: Time of onset is unclear. She thinks it started on the day of admission, but I am finding no note about this previously. This is likely an ocular palsy, possibly viral. CT head done, shows encephalomalacia. MRI shows 2 new lacunar infarcts which explain this symptom. Status: Acute (3) Acute on chronic clinical systolic heart failure: Problem details: - Dr. Tovar discussed with Cardiology on admission 08/14, symptoms are less likely ischemic, more likely meth toxicity - IV Lasix, ins and outs, daily weights trend electrolytes. transition to torsemide - not currently hypoxic - guideline directed therapy: Coreg, lisinopril, aspirin, Lipitor, plavix - troponin peaked at 0.11 - has associated weakness; working with therapies Status: Acute (4) Methamphetamine abuse: Problem details: - reviewed with patient that her methamphetamine abuse is directly contributing to her CHF; contemplative regarding cessation Status: Acute (5) Type 1 diabetes mellitus with diabetic autonomic (poly)neuropathy: Problem details: - sliding scale insulin, home regimen unclear - q.i.d. acute Status: Acute (6) CKD (chronic kidney disease) stage 4, GFR 15-29 ml/min: Problem details: - Trend, avoid nephrotoxic therapies Status: Acute (7) Tobacco abuse: Problem details: - Nicotine gum and inhalers Status: Acute (8) Sleep apnea: Problem details: - Noted, will use supplemental O2 as needed Status: Acute (9) Nephrotic range proteinuria: Problem details: - Noted, following Status: Acute (10) Asthma: Problem details: - Albuterol and DuoNebs p.r.n. Status: Acute (11) ASHD (arteriosclerotic heart disease): Problem details: - troponin peak @ 0.11. Cardiology felt like this was likely not ischemic Status: Acute (12) UTI (urinary tract infection): Problem details: - UC mixed susan. Keflex 08/15-present. Discontinue antibiotics. Status: Resolved Plan - Creatinine has stabilized. BUN increasing. Diuretics and lisinopril held last night. Check renal function tomorrow. - hypokalemia resolved. - Renally dosed Lovenox for VTE prophylaxis - will require TCU stay upon discharge given deficits from stroke. - left flank pain from fall, improving. Subjective Time Seen by Provider: 08:07 Date Seen: 08/19/22 Interval history: No new complaints. We discussed CT and MRI results. Exam Narrative: Exam Narrative: General: No acute distress. Awake, alert, oriented x3. No pallor. No jaundice. Speech mumbling, no noticeable garbling today. HEENT: Normocephalic atraumatic. Pupils equally round reactive to light. Right eye dysconjugate lateral gaze. Cardiovascular: Regular rate and rhythm. No murmurs, gallops, or rubs. Respiratory: Clear to auscultation bilaterally. No wheezes or crackles. Abdomen: Bowel sounds present. Soft, nondistended, nontender. Const: Vital Signs, click to edit/add: Vital Signs - 24 hr 08/18/22 15:00 08/18/22 15:00 08/18/22 15:47 Temperature 97.4 F L Pulse Rate 73 Pulse Rate [Right Pulse Oximeter] 79 Respiratory Rate 16 Blood Pressure [Ri ght Arm] 156/97 H Pulse Oximetry 95 97 Oxygen Delivery Me thod Room Air 08/18/22 15:00 08/18/22 21:00 08/18/22 23:00 Temperature 98.0 F Pulse Rate 70 Pulse Rate [Right Pulse Oximeter] 79 73 Respiratory Rate 16 16 Blood Pressure [Ri ght Arm] 124/75 Pulse Oximetry 93 Oxygen Delivery Me thod Room Air 08/18/22 23:00 08/18/22 23:00 08/19/22 03:00 Temperature 97.5 F L 98 F Pulse Rate Pulse Rate [Right Pulse Oximeter] 69 77 Respiratory Rate 16 16 Blood Pressure [Ri ght Arm] 124/67 127/74 Pulse Oximetry 93 93 92 Oxygen Delivery Wy thod Room Air Room Air 08/19/22 07:52 08/19/22 07:52 08/19/22 08:12 Temperature 98.3 F Pulse Rate 74 Pulse Rate [Right Pulse Oximeter] 72 Respiratory Rate 20 Blood Pressure [Ri ght Arm] 129/74 Pulse Oximetry 98 98 Oxygen Delivery Me thod Room Air 08/19/22 11:55 Temperature 97.4 F L Pulse Rate Pulse Rate [Right Pulse Oximeter] 74 Respiratory Rate 18 Blood Pressure [Ri ght Arm] 129/75 Pulse Oximetry 96 Oxygen Delivery Me thod Room Air Documenting provider has reviewed patient's vital signs: yes Labs Labs: Laboratory Results - last 24 hr 08/19/22 08/19/22 08/19/22 06:04 06:04 06:04 WBC 11.65 H RBC 3.92 L Hgb 11.3 L Hct 34.8 MCV 89 MCH 29 MCHC 33 Plt Count 336 Sodium 139 Potassium 3.9 Chloride 108 Carbon Dioxide 23 BUN 72 H Creatinine 2.9 H Estimated Creat Clear 17.51 Estimated GFR 19 Glucose 148 H Hemoglobin A1c Calcium 10.1 Ionized Calcium Jairon 1.37 H Triglycerides 102 Cholesterol 183 LDL Cholesterol, Calc 114 H HDL Cholesterol 49 L 08/19/22 06:04 WBC RBC Hgb Hct MCV MCH MCHC Plt Count Sodium Potassium Chloride Carbon Dioxide BUN Creatinine Estimated Creat Clear Estimated GFR Glucose Hemoglobin A1c 8.25 H Calcium Ionized Calcium Jairon Triglycerides Cholesterol LDL Cholesterol, Calc HDL Cholesterol Ordering Physician: Jayne Puentes M.D. Date of Service: 08/18/22 Procedure(s): CT head/brain wo con Accession Number(s): [id number] cc: Jayne Puentes M.D.; Provider,Not a Local ~ For Patients: As a result of the Cures Act, medical imaging exams and procedure reports are released immediately into your electronic medical record. You may view this report before your referring provider. If you have questions, please contact your health care provider. INDICATION: Fall 1 week ago. Head pain. TECHNIQUE: Noncontrast CT images acquired through the brain. COMPARISON: None. FINDINGS: Prominence of the ventricles and sulci compatible with mild diffuse cerebral volume loss. No mass effect or midline shift. The salgado-white differentiation is maintained. Small to moderate encephalomalacia within the posterolateral left temporal lobe, favored to represent chronic infarction. Chronic lacunar infarctions are visualized within the bilateral basal ganglia, thalami, corpus callosum, left hemipons, and right cerebellar hemisphere. No acute intracranial hemorrhage or pathologic extra-axial fluid collection. Patchy hypoattenuation in the supratentorial white matter, suggestive of [id number] chronic microvascular changes. Dense intracranial atherosclerotic calcifications. The globes are symmetric. The calvarium is intact. The paranasal sinuses are clear. The paranasal sinuses and mastoid air cells are clear. IMPRESSION: 1. No acute intracranial hemorrhage or mass effect. 2. Small to moderate encephalomalacia within the posterolateral left temporal lobe, favored to represent a chronic infarction. Chronic lacunar infarctions are visualized within the bilateral basal ganglia, thalami, corpus callosum, kurt, and right cerebellar hemisphere. 3. Suggested [id number] chronic microvascular changes and mild diffuse cerebral volume loss. Please note that all CT scans at this facility use dose modulation, iterative reconstruction, and/or weight-based dosing when appropriate to reduce radiation dose to as low as reasonably achievable. Dictated by Giovanni Martínez MD @ 08/18/2022 11:10:54 AM (Electronically Signed) Ordering Physician: Jayne Puentes M.D. Date of Service: 08/18/22 Procedure(s): MR head/brain wo con Accession Number(s): [id number] cc: Jayne Puentes M.D.; Provider,Not a Local ~ For Patients: As a result of the Century Cures Act, medical imaging exams and procedure reports are released immediately into your electronic medical record. You may view this report before your referring provider. If you have questions, please contact your health care provider. HISTORY: Dysconjugate gaze. COMPARISON: CT of the head from today. TECHNIQUE: MR examination of the brain was performed without contrast enhancement using a standard protocol. FINDINGS: There is restricted diffusion in the dorsal central kurt, slightly more prominent to the left, without hemorrhage or mass effect. This is seen to have slightly increased T2 signal on the FLAIR images and is seen to be slightly low in density on the CT from today, consistent with an acute, nonhemorrhagic lacunar infarction. The location is consistent with disruption of the medial longitudinal fasciculus on the left. There is a small focal area of restricted diffusion in the right central kurt, with minimal T2 signal abnormality, also seen to be slightly low in density on CT. This is consistent with an additional tiny acute, nonhemorrhagic lacunar infarction. An area that is bright on the diffusion weighted images is present in the anterior right periventricular white matter, axial image 41 series 5, but this is seen to be simply T2 shine through from small vessel ischemia. There is a moderate sized rounded area of encephalomalacia in the subcortical white matter in the left posterior temporal region, an old infarct in the left posterior inferior AGRONOMY SPECIALIST territory. There is no sign of any restricted diffusion or hemorrhage in this region. There is mild dilatation of the ventricles and sulci representing mild, age-appropriate atrophy, with the left lateral ventricle being larger than the right, within limits of normal variation. There is mild periventricular and subcortical white matter hypodensity from age appropriate small vessel ischemia. Old lacunar infarctions are scattered throughout the thalami bilaterally and in the right globus pallidus and putamen, and in the right external capsule. Additional old lacunar infarcts are seen in the anterior body of the right corpus callosum. There is an old small lacunar infarct in the right inferior cerebellar hemisphere, in the right PICA territory. The pituitary gland is normal in appearance. The visualized portions of the orbits are normal in appearance. The visualized paranasal sinuses and mastoids are clear. IMPRESSION: Small acute, nonhemorrhagic, lacunar infarct in the paramedian dorsal kurt, slightly more prominent to the left, without mass-effect. This is in a location consistent with disruption of the medial longitudinal fasciculus and would be consistent with the history of dysconjugate gaze. Tiny, acute, nonhemorrhagic, lacunar infarct in the right mid kurt. Small old infarct in the posterior left temporal subcortical white matter in the posterior inferior left AGRONOMY SPECIALIST territory. Old small infarct in the right PICA territory. Multiple old lacunar infarcts and mild small vessel ischemic change consistent with patient age. Mild diffuse cerebral atrophy consistent with patient age. Dictated by Maximus Velazco MD @ 08/18/2022 6:27:42 PM (Electronically Signed)
[2022-08-19] MEDS: ATORVASTATIN CALCIUM 40 MG TABLET 80 MG PO (21:02)
[2022-08-19] MEDS: MIRTAZAPINE 15 MG TABLET PO (21:03)
[2022-08-19] MEDS: ENOXAPARIN 30 MG/0.3ML INJ SUBCUT (21:03)
[2022-08-19] MEDS: carvediloL 6.25 MG TABLET PO (21:08)
[2022-08-20] VITALS (9 sets, daily range): BP systolic 108–146; BP diastolic 71–101; PULSE 64–89; RESP 14–18; TEMP 36.2–36.8; O2SAT 95–99
[2022-08-20] MEDS: HYDROCODONE-ACETAMIN 5-325 MG 1 TAB PO ×3 (05:22→18:15)
--- NOTE | 2022-08-20 05:26 | PC.NURSE ---
Shift note: Pt is doing well with A1 and bedrest. Complained of rib pain of 9 which was effectively managed with PRN medication. Continuous to have divergent right eye and blurred vision. CMS intact with mild LE weakness. NSR on tele reading.
[2022-08-20] MEDS: cephALEXin 250 MG CAPSULE PO (06:37)
[2022-08-20 06:45] LABS: Ionized Calcium* 1.29 mmol/L (1.11-1.30)
[2022-08-20 06:54] LABS: Hematocrit 34.6 % (33.0-51.0); Hemoglobin* 11.3 gm/dL (12.0-16.0); Mean Corpuscular HGB Conc 33 gm/dL (32-36); Mean Corpuscular Hemoglobin 29 pg (26-34); Mean Corpuscular Volume 88 fL (80-100); Platelet Count* 326 K/uL (140-440); Red Blood Count 3.93 m/uL (4.00-5.20); White Blood Count* 11.81 K/uL (4.50-11.00)
[2022-08-20 06:57] LABS: Slide Review Reflex No
[2022-08-20 07:05] LABS: Chloride* 110 mmol/L (96-114)
[2022-08-20 07:06] LABS: Potassium* 3.7 mmol/L (3.6-5.1); Sodium* 138 mmol/L (135-149)
[2022-08-20 07:08] LABS: Creatinine* 2.8 mg/dL (0.5-1.5); Est. Creatinine Clearance* 18.14; Estimated Glomerular Filt Rate 20 ml/min
[2022-08-20 07:09] LABS: Blood Urea Nitrogen* 69 mg/dL (7-30); Calcium* 9.5 mg/dL (8.4-10.6); Carbon Dioxide* 22 mmol/L (20-32); Glucose* 111 mg/dL (60-115)
[2022-08-20] MEDS: carvediloL 6.25 MG TABLET PO ×2 (08:37→20:30)
[2022-08-20] MEDS: ASPIRIN 81 MG TAB.CHEW PO (08:37)
[2022-08-20] MEDS: CYANOCOBALAMIN (VITAMIN B-12) 500 MCG TABLET 1000 MCG PO (08:37)
[2022-08-20] MEDS: CLOPIDOGREL 75 MG TABLET PO (08:37)
[2022-08-20] MEDS: METOCLOPRAMIDE 10 MG TABLET 5 MG PO ×3 (08:38→18:16)
[2022-08-20] MEDS: POTASSIUM CHLORIDE 10 MEQ CAPSULE ER PO (08:38)
[2022-08-20] MEDS: SODIUM CHLORIDE 0.9 % (FLUSH) 10 ML SYRINGE 5 ML IVF ×2 (08:40→20:32)
[2022-08-20] MEDS: TORSEMIDE 20 MG TABLET 40 MG PO (08:43)
--- NOTE | 2022-08-20 10:11 | CRLHL7_ITS ---
For Patients: As a result of the Cures Act, medical imaging exams and procedure reports are released immediately into your electronic medical record. You may view this report before your referring provider. If you have questions, please contact your health care provider. INDICATION: Recent stroke, difficulty swallowing. TECHNIQUE: CT head without contrast. COMPARISON: CT and MRI head 08/18/2022. FINDINGS: CSF spaces: Within normal limits for age. Brain parenchyma and extra-axial spaces: There is focal hypoattenuation within the kurt as the site of the known acute/superior infarcts. There is an unchanged area of left posterior temporal encephalomalacia and there are multiple old lacunar infarcts involving the basal ganglia. There is patchy hypoattenuation in the supratentorial periventricular white matter, consistent with underlying triple microangiopathy. No new infarct is detected. No intracranial hemorrhage is present. There is no mass effect or midline shift. No abnormal extra-axial fluid collection is present. Skull base and calvarium: The visualized paranasal sinuses and mastoid air cells demonstrate no acute or significant findings. The visualized orbits are grossly unremarkable. No skull fractures. IMPRESSION: 1. Known acute/subacute pontine infarcts. No new infarct detected. No intracranial hemorrhage. 2. Multiple old basal ganglia lacunar infarcts and findings of chronic true microangiopathy, unchanged Please note that all CT scans at this facility use dose modulation, iterative reconstruction, and/or weight-based dosing when appropriate to reduce radiation dose to as low as reasonably achievable. Dictated by Srini Bae MD @ 08/20/2022 10:58:32 AM (Electronically Signed)
--- NOTE | 2022-08-20 13:58 | PC.NURSE ---
Patient was pleasant today. Catheter removed at 930am. Patient is 1-2 assist to bathroom/chair. Patient refused breakfast but ate 100% of lunch. Patient comfortably resting in afternoon.
--- NOTE | 2022-08-20 14:16 | PC.SOCIAL ---
Discharge planning: Received call back from [facility] stating they are unable to meet pt's needs. Left multiple messages for [facility] where information was faxed 08/19/22 requesting update on status of evaluation for admit. Still awaiting call back from this facility. [facility] (which has a substance treatment program in their care home) phone [phone] and fax [phone]. Awaiting calls back from these facilities with decision on admit. liner worker to follow up as needed.
--- NOTE | 2022-08-20 16:24 | PM.IMPN1 ---
Progress Note: A&P Assessment and plan (1) Lacunar infarct, acute: Problem details: - I discussed this with Dr. Castro from [facility] 08/19/22. She was on just aspirin as an outpatient. 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 He recommended Plavix 75 mg daily. He did not think she needed dual platelet therapy for the stroke, but understood that she may needed for cardiac reasons. She is already on atorvastatin. - Difficulty swallowing - Speech therapy consult for speech and swallowing. - Cont PT and OT. Status: Acute (2) Dysconjugate gaze: Problem details: Time of onset is unclear. She thinks it started on the day of admission, but I am finding no note about this previously. This is likely an ocular palsy, possibly viral. CT head done, shows encephalomalacia. MRI shows 2 new lacunar infarcts which explain this symptom. Status: Acute (3) Acute on chronic clinical systolic heart failure: Problem details: - Dr. Tovar discussed with Cardiology on admission 08/14, symptoms are less likely ischemic, more likely meth toxicity - Resume oral torsemide. I think mildly elevated Cr is her new normal on diuretics. Monitor. - not currently hypoxic - guideline directed therapy: Coreg, lisinopril, aspirin, Lipitor, plavix - troponin peaked at 0.11 - has associated weakness; working with therapies Status: Acute (4) Methamphetamine abuse: Problem details: - reviewed with patient that her methamphetamine abuse is directly contributing to her CHF; now adamant that she is done using because I don't want to . Status: Acute (5) Type 1 diabetes mellitus with diabetic autonomic (poly)neuropathy: Problem details: - sliding scale insulin, home regimen unclear - q.i.d. acute Status: Acute (6) CKD (chronic kidney disease) stage 4, GFR 15-29 ml/min: Problem details: - Trend, avoid nephrotoxic therapies Status: Acute (7) Tobacco abuse: Problem details: - Nicotine gum and inhalers Status: Acute (8) Sleep apnea: Problem details: - Noted, will use supplemental O2 as needed Status: Acute (9) Nephrotic range proteinuria: Problem details: - Noted, following Status: Acute (10) Asthma: Problem details: - Albuterol and DuoNebs p.r.n. Status: Acute (11) ASHD (arteriosclerotic heart disease): Problem details: - troponin peak @ 0.11. Cardiology felt like this was likely not ischemic Status: Acute (12) UTI (urinary tract infection): Problem details: - UC mixed susan. Keflex 08/15-08/19. Status: Resolved Plan - Repeat head CT today due to difficulty swallowing. - Renally dosed Lovenox for VTE prophylaxis - will require TCU stay upon discharge given deficits from stroke. Subjective Time Seen by Provider: 09:30 Date Seen: 08/20/22 Interval history: November had trouble swallowing pills this morning. She had questions about why she had a winter and why we are removing it now. No other complaints. Exam Narrative: Exam Narrative: General: No acute distress. Awake, alert, oriented x3. HEENT: Right eye dysconjugate lateral gaze. Vision intact, c/o diplopia. Cardiovascular: Regular rate and rhythm. No murmurs, gallops, or rubs. Respiratory: Clear to auscultation bilaterally. No wheezes or crackles. Abdomen: Bowel sounds present. Soft, nondistended, nontender. Neuro: unchanged. Const: Vital Signs, click to edit/add: Vital Signs - 24 hr 08/19/22 16:33 08/19/22 19:46 08/19/22 21:20 Temperature 98 F Pulse Rate 76 Pulse Rate [Right Pulse Oximeter] 81 Respiratory Rate 18 Blood Pressure [Ri ght Arm] 182/99 H 162/90 H Pulse Oximetry 94 Oxygen Delivery Me thod Room Air 08/19/22 23:00 08/19/22 23:00 08/19/22 23:00 Temperature 98.5 F Pulse Rate 89 Pulse Rate [Right Pulse Oximeter] 88 Respiratory Rate 18 Blood Pressure [Ri ght Arm] 143/77 H Pulse Oximetry 95 95 Oxygen Delivery Me thod Room Air 08/20/22 03:00 08/20/22 08:15 08/20/22 09:00 Temperature 98.2 F 97.3 F L Pulse Rate Pulse Rate [Right Pulse Oximeter] 89 73 Respiratory Rate 18 14 Blood Pressure [Ri ght Arm] 141/71 H 146/82 H Pulse Oximetry 95 97 97 Oxygen Delivery Me thod Room Air Room Air 08/20/22 08:49 08/20/22 11:00 08/20/22 08:15 Temperature 97.8 F Pulse Rate 72 Pulse Rate [Right Pulse Oximeter] 65 73 Respiratory Rate 16 16 Blood Pressure [Ri ght Arm] 108/71 Pulse Oximetry 98 Oxygen Delivery Me thod Room Air Documenting provider has reviewed patient's vital signs: yes Labs Labs: Laboratory Results - last 24 hr 08/18/22 08/20/22 08/20/22 06:15 06:30 06:30 WBC 11.81 H RBC 3.93 L Hgb 11.3 L Hct 34.6 MCV 88 MCH 29 MCHC 33 Plt Count 326 Sodium 138 Potassium 3.7 Chloride 110 Carbon Dioxide 22 BUN 69 H Creatinine 2.8 H Estimated Creat Clear 18.14 Estimated GFR 20 Glucose 111 Calcium 9.5 Ionized Calcium Jairon PTH Intact pmol/L 16 Total Intact PTH 10.1 H 08/20/22 06:30 WBC RBC Hgb Hct MCV MCH MCHC Plt Count Sodium Potassium Chloride Carbon Dioxide BUN Creatinine Estimated Creat Clear Estimated GFR Glucose Calcium Ionized Calcium Jairon 1.29 PTH Intact pmol/L Total Intact PTH
[2022-08-20] MEDS: MIRTAZAPINE 15 MG TABLET PO (20:30)
[2022-08-20] MEDS: ATORVASTATIN CALCIUM 40 MG TABLET 80 MG PO (20:31)
[2022-08-20] MEDS: ENOXAPARIN 30 MG/0.3ML INJ SUBCUT (20:31)
[2022-08-21] MEDS: HYDROCODONE-ACETAMIN 5-325 MG 1 TAB PO ×4 (00:02→21:22)
[2022-08-21 02:29] VITALS: BP 148/82; PULSE 77; RESP 18; TEMP 36.4; O2SAT 97
--- NOTE | 2022-08-21 05:12 | PC.NURSE ---
Shift note: Pt appears weak and require A1, walker and GB for transfer. Bedside commode used. Pt requested to use bedside commode for urination several times tonight but unable to urinate in most of the cases. Minimal right sided rib pain complained. Pt's vision is still blurred. CMS intact with minimal weakness in both lower and upper extremities.
[2022-08-21 06:58] LABS: Hematocrit 33.9 % (33.0-51.0); Hemoglobin* 10.9 gm/dL (12.0-16.0); Mean Corpuscular HGB Conc 32 gm/dL (32-36); Mean Corpuscular Hemoglobin 29 pg (26-34); Mean Corpuscular Volume 89 fL (80-100); Platelet Count* 314 K/uL (140-440); Red Blood Count 3.82 m/uL (4.00-5.20); White Blood Count* 11.11 K/uL (4.50-11.00)
[2022-08-21 07:00] VITALS: BP 110/90; PULSE 77; PULSE 80; RESP 18; TEMP 36.5; O2SAT 95; O2SAT 96
[2022-08-21 07:00] LABS: Slide Review Reflex No
[2022-08-21 07:13] LABS: Chloride* 109 mmol/L (96-114); Potassium* 3.7 mmol/L (3.6-5.1); Sodium* 139 mmol/L (135-149)
[2022-08-21 07:16] LABS: Blood Urea Nitrogen* 72 mg/dL (7-30); Carbon Dioxide* 23 mmol/L (20-32); Est. Creatinine Clearance* 16.93; Estimated Glomerular Filt Rate 18 ml/min
[2022-08-21 07:17] LABS: Calcium* 9.4 mg/dL (8.4-10.6); Glucose* 106 mg/dL (60-115)
[2022-08-21] MEDS: TORSEMIDE 20 MG TABLET 40 MG PO (08:36)
[2022-08-21] MEDS: CLOPIDOGREL 75 MG TABLET PO (08:37)
[2022-08-21] MEDS: METOCLOPRAMIDE 10 MG TABLET 5 MG PO ×3 (08:37→18:00)
[2022-08-21] MEDS: ASPIRIN 81 MG TAB.CHEW PO (08:37)
[2022-08-21] MEDS: carvediloL 6.25 MG TABLET PO ×2 (08:37→21:21)
[2022-08-21] MEDS: CYANOCOBALAMIN (VITAMIN B-12) 500 MCG TABLET 1000 MCG PO (08:37)
[2022-08-21] MEDS: POTASSIUM CHLORIDE 10 MEQ CAPSULE ER PO (08:38)
[2022-08-21] MEDS: SODIUM CHLORIDE 0.9 % (FLUSH) 10 ML SYRINGE 5 ML IVF ×2 (08:39→21:21)
[2022-08-21 11:00] VITALS: BP 128/75; PULSE 71; RESP 18; TEMP 36.4; O2SAT 94
--- NOTE | 2022-08-21 13:05 | P.IMPN_ITS ---
Progress Note: A&P Assessment and plan (1) Lacunar infarct, acute: Problem details: - Dr. Puentes reviewed with Dr. Castro from [facility] Neuro 08/19. 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 Neurology recommended continuing Plavix 75 mg daily, did not think she needed dual platelet therapy for CVA, but agreeable to continuing this for cardiac disease - Continue home dose of Atorvastatin - Difficulty swallowing - Speech therapy consult for speech and swallowing - Continue PT and OT, consider LTAC referral upon d/c (unclear if patient has stamina for this) Status: Acute (2) Dysconjugate gaze: Problem details: - onset unclear, but was not present prior to ED presentation per patient and partner. Likely related to lacunar infarcts on MRI - appreciate input from OT Status: Acute (3) Acute on chronic clinical systolic heart failure: Problem details: - Dr. Tovar discussed with Cardiology on admission 08/14, symptoms are less likely ischemic, more likely meth toxicity - patient initiated on IV Lasix, transitioned to oral torsemide. Mildly elevated Cr is her new normal on diuretics, continue to follow - not currently requiring supplemental oxygen - guideline directed therapy: Coreg, lisinopril, aspirin, Lipitor, plavix - troponin peaked at 0.11 - has associated weakness; working with therapies Status: Acute (4) Methamphetamine abuse: Problem details: - reviewed with patient that her methamphetamine abuse is directly contributing to her CHF; now adamant that she is done using because I don't want to . Status: Acute (5) Type 1 diabetes mellitus with diabetic autonomic (poly)neuropathy: Problem details: - sliding scale insulin, home regimen unclear - q.i.d. acute - most recent A1C 8.2 (was 8.11 January 2022) Status: Acute (6) CKD (chronic kidney disease) stage 4, GFR 15-29 ml/min: Problem details: - outpatient baseline creatinine of 2.4 - Trend, avoid nephrotoxic therapies Status: Acute (7) Tobacco abuse: Problem details: - Nicotine gum and inhalers Status: Acute (8) Sleep apnea: Problem details: - Noted, will use supplemental O2 as needed Status: Acute (9) Asthma: Problem details: - Albuterol and DuoNebs p.r.n. Status: Acute Plan - continue working with therapies - appreciate input from social work regarding placement - continue medical management of CVA and CHF - continue to recommend complete methamphetamine abstinence Subjective Date Seen: 08/21/22 Interval history: Joelle is sitting in bedside chair, eating pizza for lunch when I see her today. She has no concerns regarding breathing or chest pain. Continues to have intermittent L sided rib pain with movement. She's working with therapies given recent CVA with ocular sequela. Wearing her eye patch, notes intermittent nausea when wearing this. Exam Narrative: Exam Narrative: GEN: Sleepy but arousable, sitting in bedside chair HEENT: +Disconjugate gaze, no scleral icterus, missing many teeth without concerns of acute oral infection CV: RRR, No concerning murmurs, rubs, or gallops R: LCTA bilaterally without concerning wheezing, rales, or rhonchi, air movement adequate Ext: wwp, no concerning edema Skin: + scattered open comedones over back, none appear acutely infected Neuro: Eye findings above. No facial droop, no resting tremor Psych: Mild psychomotor slowing noted Const: Vital Signs, click to edit/add: Vital Signs - 24 hr 08/20/22 16:26 08/20/22 16:26 08/20/22 16:35 Temperature 97.1 F L Pulse Rate 64 Pulse Rate [Right Pulse Oximeter] 70 Respiratory Rate 18 Blood Pressure [Ri ght Arm] 111/80 Pulse Oximetry 98 98 Oxygen Delivery Me thod Room Air 08/20/22 19:00 08/20/22 23:00 08/20/22 23:00 Temperature 97.2 F L Pulse Rate Pulse Rate [Right Pulse Oximeter] 74 Respiratory Rate 18 18 Blood Pressure [Ri ght Arm] 136/101 H Pulse Oximetry 99 99 Oxygen Delivery Me thod Room Air 08/20/22 23:00 08/20/22 23:00 08/21/22 02:29 Temperature 97.1 F L 97.5 F L Pulse Rate 89 Pulse Rate [Right Pulse Oximeter] 69 77 Respiratory Rate 18 18 Blood Pressure [Ri ght Arm] 130/89 148/82 H Pulse Oximetry 99 97 Oxygen Delivery Me thod Room Air Room Air 08/21/22 07:00 08/21/22 07:00 08/21/22 07:00 Temperature Pulse Rate 80 Pulse Rate [Right Pulse Oximeter] Respiratory Rate 18 Blood Pressure [Ri ght Arm] Pulse Oximetry 95 Oxygen Delivery Me thod 08/21/22 07:00 08/21/22 11:00 Temperature 97.7 F 97.6 F Pulse Rate Pulse Rate [Right Pulse Oximeter] 77 71 Respiratory Rate 18 18 Blood Pressure [Ri ght Arm] 110/90 H 128/75 Pulse Oximetry 96 94 Oxygen Delivery Me thod Room Air Room Air Labs Labs: Laboratory Results - last 24 hr 08/21/22 08/21/22 06:48 06:48 WBC 11.11 H RBC 3.82 L Hgb 10.9 L Hct 33.9 MCV 89 MCH 29 MCHC 32 Plt Count 314 Sodium 139 Potassium 3.7 Chloride 109 Carbon Dioxide 23 BUN 72 H Creatinine 3.0 H Estimated Creat Clear 16.93 Estimated GFR 18 Glucose 106 Calcium 9.4
--- NOTE | 2022-08-21 13:53 | PC.SOCIAL ---
Discharge planning: Received call back from [place] stating they are unable to accept pt due to her recent substance use.
--- NOTE | 2022-08-21 14:15 | PC.NURSE ---
PATIENT ALERT AND ORIENTED, UP A1 WALKER AND BELT, PATIENT HAS SOME WEAKNESS ON RIGHT SIDE, USING AN EYE PATCH WITH THERAPY TO HELP WITH HER VISION, PATIENT NEEDS LOTS OF ENCOURAGEMENT TO GET UP AND OUT OF BED, I AM TIRED, DO I HAVE TO GET TO CHAIR, WHY DO I NEED TO EAT IN THE CHAIR, CONTINENT THROUGHOUT SHIFT, NO BOWEL MOVEMENT, ABLE TO TAKE PILLS ONE AT TIME WITHOUT ISSUE, ABLE TO FEED SELF, USING CALL LIGHT APPROPRIATELY, RATING PAIN IN RIBS 7-8/10 BEING MANAGED WITH PRN NORCO, PATIENT STATES THE PAIN IS WORSE WITH MOVEMENT, TELE SHOWING NSR.
[2022-08-21 15:00] VITALS: BP 144/73; PULSE 72; PULSE 81; RESP 16; RESP 18; TEMP 36.2; O2SAT 93
--- NOTE | 2022-08-21 15:41 | PC.SOCIAL ---
Discharge planning: Left messages with [facility] requesting a call back to confirm if they received the referral and if there is availability. general office worker to follow up as needed.
--- NOTE | 2022-08-21 15:51 | PC.SOCIAL ---
Discharge planning: Called [facility] and left message requesting call back regarding placement of this pt at their facility. Awaiting call back.
[2022-08-21 19:00] VITALS: BP 138/75; PULSE 78; RESP 18; TEMP 36.6; O2SAT 95
[2022-08-21] MEDS: ATORVASTATIN CALCIUM 40 MG TABLET 80 MG PO (21:17)
[2022-08-21] MEDS: MIRTAZAPINE 15 MG TABLET PO (21:21)
[2022-08-21] MEDS: ENOXAPARIN 30 MG/0.3ML INJ SUBCUT (21:22)
--- NOTE | 2022-08-21 22:45 | PC.NURSE ---
End of Shift: Patient pleasant and cooperative. Afebrile. Alert and oriented except for exact date. Up to bathroom and chair with 1 assist, walker and gait belt. Rating pain in left side up to 5-8/10 and PRN [place] given x2. Tolerating regular diet with no nausea. Patient has not had a BM. Offered multiple medications available and patient refused stating I can't take them this late and agreed to take them in the morning.
[2022-08-21 23:00] VITALS: BP 135/73; PULSE 74; PULSE 84; RESP 16; TEMP 36.8; O2SAT 98
[2022-08-22] VITALS (7 sets, daily range): BP systolic 116–139; BP diastolic 57–85; PULSE 68–79; RESP 16–18; TEMP 36.1–36.7; O2SAT 93–99
--- NOTE | 2022-08-22 05:18 | PC.NURSE ---
Addendum entered by Stormy Mcgrath RN 08/22/22 06:09: TELE READS NSR. PT DENIES CP, SOB, N/V. VSS ON RA; AFEBRILE. HEAVY LEAN TO RIGHT SIDE WITH AMBULATION. Original Note: PT FATIGUED WITH FLAT AFFECT. PT IS COOPERATIVE WITH CARES. AMBULATES WITH WALKER, GB, A1. WEAKNESS TO RIGHT SIDE. UNEVENTFUL NIGHT.
[2022-08-22 07:09] LABS: Basophils Percent Auto 0.4 % (0.0-3.0); Eosinophils Percent Auto 4.2 % (0.0-7.0); Hematocrit 33.8 % (33.0-51.0); Hemoglobin* 11.1 gm/dL (12.0-16.0); Immature Granulocytes Pct Auto 0.2 %; Lymphocytes Percent Auto 28.1 % (20-44); Mean Corpuscular HGB Conc 33 gm/dL (32-36); Mean Corpuscular Hemoglobin 29 pg (26-34); Mean Corpuscular Volume 89 fL (80-100); Neutrophils Percent Auto 58.1 % (42.0-72.0); Platelet Count* 301 K/uL (140-440); RDW Coefficient of Variation % 12.6 % (11.5-15.5); White Blood Count* 11.17 K/uL (4.50-11.00)
[2022-08-22 07:10] LABS: Slide Review Reflex No
[2022-08-22 07:27] LABS: Chloride* 109 mmol/L (96-114)
[2022-08-22 07:28] LABS: Sodium* 139 mmol/L (135-149)
[2022-08-22 07:30] LABS: Creatinine* 3.3 mg/dL (0.5-1.5); Est. Creatinine Clearance* 15.39; Estimated Glomerular Filt Rate 16 ml/min
[2022-08-22 07:31] LABS: Blood Urea Nitrogen* 75 mg/dL (7-30); Calcium* 9.8 mg/dL (8.4-10.6); Carbon Dioxide* 22 mmol/L (20-32); Glucose* 170 mg/dL (60-115)
[2022-08-22] MEDS: HYDROCODONE-ACETAMIN 5-325 MG 1 TAB PO ×3 (08:00→17:43)
[2022-08-22] MEDS: ASPIRIN 81 MG TAB.CHEW PO (08:11)
[2022-08-22] MEDS: carvediloL 6.25 MG TABLET PO ×2 (08:11→20:44)
[2022-08-22] MEDS: polyethylene glycoL 3350 17 GM PACK PO (08:11)
[2022-08-22] MEDS: TORSEMIDE 20 MG TABLET 40 MG PO (08:11)
[2022-08-22] MEDS: CYANOCOBALAMIN (VITAMIN B-12) 500 MCG TABLET 1000 MCG PO (08:12)
[2022-08-22] MEDS: POTASSIUM CHLORIDE 10 MEQ CAPSULE ER PO (08:12)
[2022-08-22] MEDS: CLOPIDOGREL 75 MG TABLET PO (08:12)
[2022-08-22] MEDS: METOCLOPRAMIDE 10 MG TABLET 5 MG PO ×3 (08:12→17:42)
[2022-08-22] MEDS: SODIUM CHLORIDE 0.9 % (FLUSH) 10 ML SYRINGE 5 ML IVF ×2 (08:13→20:44)
[2022-08-22] MEDS: DOCUSATE SODIUM 100 MG CAPSULE PO (09:37)
--- NOTE | 2022-08-22 14:10 | PM.IMPN1 ---
Progress Note: A&P Assessment and plan (1) Lacunar infarct, acute: Problem details: - Dr. Puentes reviewed with Dr. Castro from [facility] Neuro 08/19. 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 - Neurology recommends continuing Plavix 75 mg daily, did not think she needed dual platelet therapy for CVA, but agreeable to continuing this for cardiac disease - Continue home dose of Atorvastatin - Difficulty swallowing; seen by Speech 08/20 who recommends soft/bite sized foods, thin liquids, pills one at a time, eat/drink while sitting up, continued speech f/u - Continue PT and OT, consider LTAC referral upon d/c (unclear if patient has stamina for this) vs SNF - lives with boyfriend who states he will be unable to take patient back home with current needs Status: Acute (2) Acute on chronic clinical systolic heart failure: Problem details: - Dr. Tovar discussed with Cardiology on admission 08/14, symptoms are less likely ischemic, more likely meth toxicity - patient initiated on IV Lasix, transitioned to oral torsemide. Mildly elevated Cr is likely her new normal on diuretics, continue to follow - remains stable on RA - guideline directed therapy: continue Coreg, lisinopril, aspirin, Lipitor, Plavix - troponin peaked at 0.11 - + weakness; working with therapies Status: Acute (3) Dysconjugate gaze: Problem details: - onset unclear, not present prior to ED presentation per patient and partner. Likely related to lacunar infarcts on MRI - known history of diabetic retinopathy, previously followed with Ophthalmology as an outpatient - appreciate input from OT Status: Acute (4) Methamphetamine abuse: Problem details: - reviewed with patient that her methamphetamine abuse is directly contributing to her CHF; now adamant that she is done using because I don't want to Status: Acute (5) Type 1 diabetes mellitus with diabetic autonomic (poly)neuropathy: Problem details: - sliding scale insulin, home regimen unclear - q.i.d. acute - most recent A1C 8.2 (was 8.11 January 2022) Status: Acute (6) CKD (chronic kidney disease) stage 4, GFR 15-29 ml/min: Problem details: - with LISA vs new normal; outpatient baseline creatinine of 2.4 - Trend, avoid nephrotoxic therapies Status: Acute (7) Tobacco abuse: Problem details: - Nicotine gum and inhalers Status: Acute (8) Sleep apnea: Problem details: - Noted, will use supplemental O2 as needed Status: Acute (9) Asthma: Problem details: - Albuterol and DuoNebs prn Status: Acute (10) Normocytic anemia: Problem details: - likely 2/2 CKD, no evidence of acute bleeding, denies h/o melena Status: Acute (11) Fall: Problem details: - admission imaging (CT of C/A/P) on 08/14 reassuring - persistent L sided rib pain with movement, will repeat portable CXR today (08/22) to evaluate Status: Acute Plan - per above - renally dosed Lovenox for ppx - dispo: pending placement Subjective Date Seen: 08/22/22 Interval history: November is laying in bed when I see her today. She continues to have intermittent pain in her L side with movement. No cough, no CP at rest. Continues to work with therapies for recent CVA and CHF exacerbation. Exam Narrative: Exam Narrative: GEN: Alert and answering questions appropriately HEENT: Edentulous with the exception of 2 teeth, + disconjugate gaze, tongue protrudes midline CV: RRR, No concerning murmurs, rubs, or gallops R: LCTA bilaterally without concerning wheezing, rales, or rhonchi, air movement adequate. Mild-moderate discomfort with palpation of L chest, no crepitus noted Ext: wwp, no concerning edema Skin: No concerning skin lesions or rashes on exposed skin Neuro: No resting tremor, no other abnormalities beyond EOM above Psych: + psychomotor slowing Const: Vital Signs, click to edit/add: Vital Signs - 24 hr 08/21/22 15:00 08/21/22 15:00 08/21/22 15:00 Temperature 97.1 F L Pulse Rate Pulse Rate [Right Pulse Oximeter] 81 81 Respiratory Rate 16 18 Blood Pressure [Ri ght Arm] 144/73 H Pulse Oximetry 93 93 Oxygen Delivery Me thod Room Air 08/21/22 15:00 08/21/22 19:00 08/21/22 23:00 Temperature 97.8 F Pulse Rate 72 74 Pulse Rate [Right Pulse Oximeter] 78 Respiratory Rate 18 Blood Pressure [Ri ght Arm] 138/75 Pulse Oximetry 95 Oxygen Delivery Me thod Room Air 08/21/22 23:00 08/21/22 23:00 08/21/22 23:00 Temperature 98.2 F Pulse Rate Pulse Rate [Right Pulse Oximeter] 84 84 Respiratory Rate 16 16 Blood Pressure [Ri ght Arm] 135/73 Pulse Oximetry 98 98 Oxygen Delivery Me thod Room Air 08/22/22 03:24 08/22/22 07:00 08/22/22 07:00 Temperature 97.6 F Pulse Rate Pulse Rate [Right Pulse Oximeter] 78 79 Respiratory Rate 18 16 Blood Pressure [Ri ght Arm] 139/83 123/57 L Pulse Oximetry 93 95 99 Oxygen Delivery Hi thod Room Air 08/22/22 09:35 08/22/22 07:00 08/22/22 11:00 Temperature 96.9 F L Pulse Rate 73 Pulse Rate [Right Pulse Oximeter] 79 73 Respiratory Rate 16 16 Blood Pressure [Ri ght Arm] 126/74 Pulse Oximetry 96 Oxygen Delivery Hi thod Room Air Labs Labs: Laboratory Results - last 24 hr 08/22/22 08/22/22 06:58 06:58 WBC 11.17 H RBC 3.80 L Hgb 11.1 L Hct 33.8 MCV 89 MCH 29 MCHC 33 RDW Coeff of Santino 12.6 Plt Count 301 Neut % (Auto) 58.1 Lymph % (Auto) 28.1 [place] % (Auto) 9.0 Eos % (Auto) 4.2 Baso % (Auto) 0.4 Neut # (Auto) 6.50 Lymph # (Auto) 3.10 H [place] # (Auto) 1.00 H Eos # (Auto) 0.50 Baso # (Auto) 0.00 Sodium 139 Potassium 4.0 Chloride 109 Carbon Dioxide 22 BUN 75 H Creatinine 3.3 H Estimated Creat Clear 15.39 Estimated GFR 16 Glucose 170 H Calcium 9.8
--- NOTE | 2022-08-22 14:40 | XR_ITS ---
Patient: MAGDALENE LORI Facility:?[facility] Patient ID:?[id number] Site Patient ID:?[id number]. Site :?[id number] Study:?XRay-Chest PORTABLE 1 VIEW-08/22/2022 3:12:50 PM Ordering Physician:Pavan Cassidy Final Report: INDICATION: Left rib pain TECHNIQUE: Chest 1 view COMPARISON: CT chest 08/14/2022 FINDINGS: Improved appearance of the chest compared to the prior exam with mild residual bronchial wall thickening in both upper lobes. Decreased pleural effusions. No pneumothorax. Mediastinum is similar. IMPRESSION: Improved appearance of the chest. No pneumothorax. No rib fracture. Dictated by Cuco Adair MD @ 08/22/2022 3:16:52 PM Signed by:?Cuco Adair MD @08/22/2022 3:16:52 PM (Electronic Signature)
--- NOTE | 2022-08-22 16:50 | PC.SOCIAL ---
Discharge planning: feeder worker power unit operator continued to look for rehab placement in a senior care facility for pt, able to accept pt with a meth history. Contacted the following 18 senior care facilities with the listed results. 1. [facility]: will not admit pt with meth history. 2. [facility]: Left message requesting call back if interested. 3. [facility]: Left message requesting call back if interested. 4. [facility]: No beds available. 5. [facility]: Left message requesting call back if interested. 6. [facility] Left message requesting call back if interested. 7. [facility]: Spoke with Leigh Ann and faxed referral [phone] for evaluation for admit. 8-18. [facility]: Left message requesting call back if interested, phone [phone]. Faxed ([phone]) referral for evaluation for admission to any of their eleven facilities in [place]. feeder worker power unit operator to follow up as needed.
--- NOTE | 2022-08-22 17:44 | PC.NURSE ---
End of shift-- Pt pleasant, alert and oriented today. VSS and pt is afebrile. SPO2 maintained >94% on RA. Pain in left ribs appears well managed with [place] q4h. Pt appears to be resting comfortably. Telemetry showed NSR and was dc'd today per MD order. LS CTA but diminished. Pt encouraged to take deep breaths and use IS. She denied nausea and tolerated a regular diet without difficulty, but appetite was poor and pt required encouragement to order anything. Blood sugars 146 and 155 and pt was given insulin per sliding scale. She was up to the chair and BR with assist of 1, belt and walker and tolerated it fair. Pt prefers to lay in bed at all times and had to be encouraged to get up and move. She is also very unsteady on her feet and leans heavily to the right side. MD is aware. Report to LACIE Avendaño.
--- NOTE | 2022-08-22 19:52 | PC.NURSE ---
UPDATE MAYIPHOENIX RECEIVED PHONE CALL FROM DTINGA AROUND 1700 ASKING FOR INFORMATION ON MOTHER-NOVEMBER MEDICAL CONDITION. [facility] [place] [facility] IS NOT ON INFORMATION AUTHORIZATION FORM. DTG CALL TRANSFERRED TO PT ROOM. MADELAINENIKKY SPOKE TO PT-NOVEMBER WHO STATED IT WAS OK TO REPORT TO DT THAT PT HAD STROKE BUT NO OTHER MEDICAL INFORMATION TO BE SHARED. PT SON-KASSY CALLED UPSET WANTING INFORMATION ON MEDICAL CONDITION. [facility] ALSO IS NOT ON INFORMATION AUTHORIZATION. TERE TRANSFERRED CALL TO ADWOA Davis. SON WAS EDUCATED BY RN THAT PT HAS RIGHTS OF PRIVACY. SON STATED PT IS INCAPABLE OF MAKING PT'S OWN DECISIONS. RN EDUCATED SON ON RIGHT TO FILE FOR EMERGENCY GUARDIANSHIP THROUGH THE COURTS IF HE FELT THAT NECESSARY. SON EDUCATED OF HOSPITAL POLICY OF PT RIGHTS TO PRIVACY. REPORTED BY [facility] PT IS OF SOUND MIND.
[2022-08-22] MEDS: ENOXAPARIN 30 MG/0.3ML INJ SUBCUT (20:37)
[2022-08-22] MEDS: ATORVASTATIN CALCIUM 40 MG TABLET 80 MG PO (20:38)
[2022-08-22] MEDS: MIRTAZAPINE 15 MG TABLET PO (20:38)
[2022-08-23 03:00] VITALS: BP 120/71; PULSE 74; RESP 16; TEMP 36.8; O2SAT 95
[2022-08-23] MEDS: HYDROCODONE-ACETAMIN 5-325 MG 1 TAB PO ×3 (06:42→21:27)
[2022-08-23 06:57] LABS: Basophils Absolute Auto 0.06 K/uL (0.00-0.30); Basophils Percent Auto 0.6 % (0.0-3.0); Eosinophils Absolute Auto 0.32 K/uL (0.00-0.50); Eosinophils Percent Auto 3.1 % (0.0-7.0); Hematocrit 35.1 % (33.0-51.0); Hemoglobin* 11.3 gm/dL (12.0-16.0); Immature Granulocytes Abs Auto 0.11 K/uL (0.00-0.30); Immature Granulocytes Pct Auto 1.1 %; Lymphocytes Absolute Auto 2.36 K/uL (0.90-2.90); Lymphocytes Percent Auto 23.1 % (20-44); Mean Corpuscular HGB Conc 32 gm/dL (32-36); Mean Corpuscular Hemoglobin 29 pg (26-34); Mean Corpuscular Volume 90 fL (80-100); Monocytes Percent Auto 6.8 % (0.0-11.0); Neutrophils Absolute Auto 6.68 K/uL (1.7-7.0); Neutrophils Percent Auto 65.3 % (42.0-72.0); Platelet Count* 316 K/uL (140-440); RDW Coefficient of Variation % 12.9 % (11.5-15.5); Red Blood Count 3.91 m/uL (4.00-5.20); White Blood Count* 10.23 K/uL (4.50-11.00)
[2022-08-23 07:14] LABS: Slide Review Reflex No
[2022-08-23 07:23] LABS: Chloride* 107 mmol/L (96-114); Sodium* 141 mmol/L (135-149)
[2022-08-23 07:26] LABS: Blood Urea Nitrogen* 78 mg/dL (7-30); Carbon Dioxide* 26 mmol/L (20-32); Creatinine* 3.5 mg/dL (0.5-1.5); Est. Creatinine Clearance* 14.51; Estimated Glomerular Filt Rate 15 ml/min
[2022-08-23 07:27] LABS: Calcium* 9.6 mg/dL (8.4-10.6); Glucose* 108 mg/dL (60-115)
--- NOTE | 2022-08-23 07:32 | PC.NURSE ---
END OF SHIFT NOTE: PT IS FATIGUED, BUT COOPERATIVE WITH CARES; REDUCED INTERACTIONS.?PT IS A&O. HX OF CVA WITH RIGHT SIDED WEAKNESS. AMBULATES WITH WALKER, GB, A1; PT LEANS HEAVY TO RIGHT WITH UNSTEADY GAIT. ?
[2022-08-23 09:00] VITALS: BP 122/78; PULSE 72; RESP 18; TEMP 36.4; O2SAT 99
[2022-08-23] MEDS: CYANOCOBALAMIN (VITAMIN B-12) 500 MCG TABLET 1000 MCG PO (09:36)
[2022-08-23] MEDS: TORSEMIDE 20 MG TABLET 40 MG PO (09:36)
[2022-08-23] MEDS: carvediloL 6.25 MG TABLET PO ×2 (09:36→21:22)
[2022-08-23] MEDS: POTASSIUM CHLORIDE 10 MEQ CAPSULE ER PO (09:36)
[2022-08-23] MEDS: ASPIRIN 81 MG TAB.CHEW PO (09:36)
[2022-08-23] MEDS: METOCLOPRAMIDE 10 MG TABLET 5 MG PO ×3 (09:36→17:55)
[2022-08-23] MEDS: CLOPIDOGREL 75 MG TABLET PO (09:37)
[2022-08-23] MEDS: SODIUM CHLORIDE 0.9 % (FLUSH) 10 ML SYRINGE 5 ML IVF ×2 (09:37→21:26)
[2022-08-23 11:10] VITALS: BP 118/77; PULSE 69; RESP 18; TEMP 36.8; O2SAT 98
--- NOTE | 2022-08-23 14:04 | PM.IMPN1 ---
Progress Note: A&P Assessment and plan (1) Lacunar infarct, acute: Problem details: - Dr. Puentes reviewed with Dr. Castro from [facility] Neuro 08/19. 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 - Neurology recommends continuing Plavix 75 mg daily, did not think she needed dual platelet therapy for CVA, but agreeable to continuing this for cardiac disease - Continue home dose of Atorvastatin - Difficulty swallowing; seen by Speech 08/20 who recommends soft/bite sized foods, thin liquids, pills one at a time, eat/drink while sitting up, continued speech f/u - Continue PT and OT, consider LTAC referral upon d/c (unclear if patient has stamina for this) vs SNF - lives with boyfriend who states he will be unable to take patient back home with current needs - daughter interested in having mother closer; wondering if a SNF near [place], [place] is a possibility Status: Acute (2) Acute on chronic clinical systolic heart failure: Problem details: - Dr. Tovar discussed with Cardiology on admission 08/14, symptoms are less likely ischemic, more likely meth toxicity - patient initiated on IV Lasix, transitioned to oral torsemide. Mildly elevated Cr is possibly her new normal on diuretics, continue to follow - remains stable on RA - guideline directed therapy: continue Coreg, lisinopril (holding now for LISA), aspirin, Lipitor, Plavix - troponin peaked at 0.11 - + weakness; working with therapies Status: Acute (3) Dysconjugate gaze: Problem details: - onset unclear, not present prior to ED presentation per patient and partner. Likely related to lacunar infarcts on MRI - known history of diabetic retinopathy, previously followed with Ophthalmology as an outpatient - appreciate input from OT Status: Acute (4) LISA (acute kidney injury): Problem details: - holding Lisinopril, will decrease Torsemide dosing - will trial gentle IVF bolus early 08/24 morning followed by Torsemide dosing tomorrow Status: Acute (5) Methamphetamine abuse: Problem details: - reviewed with patient that her methamphetamine abuse is directly contributing to her CHF; now adamant that she is done using because I don't want to Status: Acute (6) Type 1 diabetes mellitus with diabetic autonomic (poly)neuropathy: Problem details: - sliding scale insulin, home regimen unclear, history of noncompliance - q.i.d. acute - most recent A1C 8.2 (was 8.11 January 2022) Status: Acute (7) CKD (chronic kidney disease) stage 4, GFR 15-29 ml/min: Problem details: - with LISA vs new normal; outpatient baseline creatinine of 2.4 - Trend, avoid nephrotoxic therapies Status: Acute (8) Tobacco abuse: Problem details: - Nicotine gum and inhalers Status: Acute (9) Sleep apnea: Problem details: - Noted, will use supplemental O2 as needed Status: Acute (10) Asthma: Problem details: - Albuterol and DuoNebs prn Status: Acute (11) Normocytic anemia: Problem details: - likely 2/2 CKD, no evidence of acute bleeding, denies h/o melena Status: Acute (12) Fall: Problem details: - admission imaging (CT of C/A/P) on 08/14 reassuring - persistent L sided rib pain with movement, repeat XRay 08/22 remained stable Status: Acute Plan - per above - patient asked that I call and update her daughter Carmen at [phone]. Updated daughter, questions answered - awaiting placement (daughter wondering if SNF near [place] is a possibility) Subjective Date Seen: 08/23/22 Interval history: Joelle has no concerns for hospitalist team today. Unfortunately, her creatinine continues to climb; it is 3.5 today. She denies any change in urination or abdominal pain. She is tolerating po intake. Exam Narrative: Exam Narrative: GEN: Alert, laying comfortably in bed HEENT: Edentulous with to teeth remaining, dysconjugate gaze persists CV: RRR, soft systolic murmur heard best at right upper sternal border without concerning features R: LCTA bilaterally without concerning wheezing, rales, or rhonchi, air movement adequate Ext: wwp, no concerning edema Skin: No concerning skin lesions or rashes on exposed skin Neuro: No resting tremor, no other focal abnormalities besides EOM Psych: Appropriate for comorbidities Const: Vital Signs, click to edit/add: Vital Signs - 24 hr 08/22/22 15:00 08/22/22 19:00 08/22/22 23:00 Temperature 97.6 F 98.1 F Pulse Rate [Right Pulse Oximeter] 68 74 71 Respiratory Rate 18 18 18 Blood Pressure [Ri ght Arm] 116/79 135/85 Pulse Oximetry 96 97 Oxygen Delivery Me thod Room Air Room Air 08/22/22 23:00 08/23/22 03:00 08/23/22 09:00 Temperature 97.6 F 98.2 F 97.6 F Pulse Rate [Right Pulse Oximeter] 71 74 72 Respiratory Rate 18 16 18 Blood Pressure [[facility]] 135/82 120/71 122/78 Pulse Oximetry 98 95 99 Oxygen Delivery Me thod Room Air Room Air Room Air 08/23/22 11:10 Temperature 98.2 F Pulse Rate [Right Pulse Oximeter] 69 Respiratory Rate 18 Blood Pressure [[facility]] 118/77 Pulse Oximetry 98 Oxygen Delivery Me thod Room Air Labs Labs: Laboratory Results - last 24 hr 08/23/22 08/23/22 05:57 05:57 WBC 10.23 RBC 3.91 L Hgb 11.3 L Hct 35.1 MCV 90 MCH 29 MCHC 32 RDW Coeff of Santino 12.9 Plt Count 316 Neut % (Auto) 65.3 Lymph % (Auto) 23.1 [place] % (Auto) 6.8 Eos % (Auto) 3.1 Baso % (Auto) 0.6 Neut # (Auto) 6.68 Lymph # (Auto) 2.36 [place] # (Auto) 0.70 Eos # (Auto) 0.32 Baso # (Auto) 0.06 Sodium 141 Potassium 4.0 Chloride 107 Carbon Dioxide 26 BUN 78 H Creatinine 3.5 H Estimated Creat Clear 14.51 Estimated GFR 15 Glucose 108 Calcium 9.6
[2022-08-23 15:24] VITALS: BP 119/70; PULSE 72; RESP 18; TEMP 36.8; O2SAT 91
--- NOTE | 2022-08-23 17:26 | PC.NURSE ---
Shift Summary: Patient pleasant and cooperative. Needs encouragement to perform tasks, worked with PT/OT today. Vitals stable and WNL. This morning patient c/o pain around 0800 however was too soon for medication, was given aqua-k and patient stated its been helpful. Has not requested medication since late this morning, appears comfortable in bed. One assist to BSC with walker and gait belt. Family here earlier, helped encourage patient to eat lunch. Patient wearing eye patch during meals so that she can properly see where her food is.
[2022-08-23] MEDS: SENNOSIDES/DOCUSATE TABLET 1 TAB PO (18:07)
[2022-08-23 21:15] VITALS: BP 147/91; PULSE 75; RESP 16; TEMP 36.6; O2SAT 96
[2022-08-23] MEDS: ENOXAPARIN 30 MG/0.3ML INJ SUBCUT (21:22)
[2022-08-23] MEDS: ATORVASTATIN CALCIUM 40 MG TABLET 80 MG PO (21:22)
[2022-08-23] MEDS: MIRTAZAPINE 15 MG TABLET PO (21:22)
[2022-08-23 23:00] VITALS: RESP 18
[2022-08-24 03:00] VITALS: BP 127/73; PULSE 72; RESP 18; TEMP 36.2; O2SAT 97
[2022-08-24] MEDS: LACTATED RINGERS 1000 ML 500 ML 250 ML IV (04:18)
--- NOTE | 2022-08-24 06:41 | PC.NURSE ---
END OF SHIFT NOTE: PT IS CALM AND COOPERATIVE. AMBULATES WITH WALKER, GB, A1. LEANS HEAVILY TO RIGHT SIDE A RESIDUAL EFFECT FROM CVA. PT REPORTS LEFT RIB PAIN 7/10 THAT WAS RELIEVED WITH PAIN MED PER eMAR.
[2022-08-24 09:00] VITALS: BP 126/77; PULSE 74; RESP 18; TEMP 36.1; O2SAT 94
[2022-08-24] MEDS: ACETAMINOPHEN 325 MG TABLET PO ×2 (09:38→20:46)
[2022-08-24] MEDS: METOCLOPRAMIDE 10 MG TABLET 5 MG PO ×3 (09:40→17:30)
[2022-08-24] MEDS: ASPIRIN 81 MG TAB.CHEW PO (09:40)
[2022-08-24] MEDS: CLOPIDOGREL 75 MG TABLET PO (09:40)
[2022-08-24] MEDS: HYDROCODONE-ACETAMIN 5-325 MG 1 TAB PO ×2 (09:41→17:33)
[2022-08-24] MEDS: CYANOCOBALAMIN (VITAMIN B-12) 500 MCG TABLET 1000 MCG PO (09:41)
[2022-08-24] MEDS: carvediloL 6.25 MG TABLET PO ×2 (09:41→20:45)
[2022-08-24] MEDS: TORSEMIDE 20 MG TABLET PO (09:41)
[2022-08-24] MEDS: POTASSIUM CHLORIDE 10 MEQ CAPSULE ER PO (09:44)
[2022-08-24 11:27] LABS: Basophils Percent Auto 0.4 % (0.0-3.0); Eosinophils Percent Auto 2.5 % (0.0-7.0); Hematocrit 34.1 % (33.0-51.0); Hemoglobin* 11.1 gm/dL (12.0-16.0); Immature Granulocytes Pct Auto 0.2 %; Lymphocytes Percent Auto 22.2 % (20-44); Mean Corpuscular HGB Conc 33 gm/dL (32-36); Mean Corpuscular Hemoglobin 29 pg (26-34); Mean Corpuscular Volume 89 fL (80-100); Neutrophils Percent Auto 67.7 % (42.0-72.0); Platelet Count* 319 K/uL (140-440); RDW Coefficient of Variation % 12.6 % (11.5-15.5); Red Blood Count 3.82 m/uL (4.00-5.20); White Blood Count* 11.19 K/uL (4.50-11.00)
[2022-08-24 11:40] LABS: Slide Review Reflex No
[2022-08-24 11:42] LABS: Chloride* 106 mmol/L (96-114)
[2022-08-24 11:43] LABS: Potassium* 3.7 mmol/L (3.6-5.1); Sodium* 139 mmol/L (135-149)
[2022-08-24 11:45] LABS: Carbon Dioxide* 26 mmol/L (20-32); Creatinine* 3.4 mg/dL (0.5-1.5); Est. Creatinine Clearance* 14.94; Estimated Glomerular Filt Rate 16 ml/min
[2022-08-24 11:46] LABS: Blood Urea Nitrogen* 77 mg/dL (7-30); Calcium* 9.2 mg/dL (8.4-10.6); Glucose* 198 mg/dL (60-115)
[2022-08-24 12:00] VITALS: BP 153/88; PULSE 73; RESP 16; TEMP 36.1; O2SAT 94
--- NOTE | 2022-08-24 14:26 | ONC.NURNOTE ---
wanting to sleep all day . vs wnl. oxy and tylenol this am for rib pain. up into chair this afternoon with PT. refused a shower when offered by OTx2. wnc up in chair. up with one walker and belt. good po intake
[2022-08-24 15:00] VITALS: BP 119/85; PULSE 77; RESP 16; TEMP 36.6; O2SAT 98
--- NOTE | 2022-08-24 17:07 | PM.IMPN1 ---
Progress Note: A&P Assessment and plan (1) Lacunar infarct, acute: Problem details: - Dr. Puentes reviewed with Dr. Castro from [facility] Neuro 08/19. 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 - Neurology recommends continuing Plavix 75 mg daily, did not think she needed dual platelet therapy for CVA, but agreeable to continuing this for cardiac disease - Continue home dose of Atorvastatin - Difficulty swallowing; seen by Speech 08/20 who recommends soft/bite sized foods, thin liquids, pills one at a time, eat/drink while sitting up, continued speech f/u - Continue PT and OT, consider LTAC referral upon d/c (unclear if patient has stamina for this) vs SNF - lives with boyfriend who states he will be unable to take patient back home with current needs - daughter interested in having mother closer; wondering if a SNF near [place], [place] is a possibility Status: Acute (2) Acute on chronic clinical systolic heart failure: Problem details: - Dr. Tovar discussed with Cardiology on admission 08/14, symptoms are less likely ischemic, more likely meth toxicity - patient initiated on IV Lasix, transitioned to oral torsemide. Mildly elevated Cr is possibly her new normal on diuretics, continue to follow - remains stable on RA - guideline directed therapy: continue Coreg, lisinopril (holding now for LISA), aspirin, Lipitor, Plavix - troponin peaked at 0.11 - + weakness; working with therapies Status: Acute Assessment and Plan: 500 mL normal saline bolus today. Continue on reduced dose of torsemide as initiated yesterday. (3) Dysconjugate gaze: Problem details: - onset unclear, not present prior to ED presentation per patient and partner. Likely related to lacunar infarcts on MRI - known history of diabetic retinopathy, previously followed with Ophthalmology as an outpatient - appreciate input from OT Status: Acute (4) LISA (acute kidney injury): Problem details: - holding Lisinopril, will decrease Torsemide dosing - will trial gentle IVF bolus early 08/24 morning followed by Torsemide dosing tomorrow Status: Acute (5) Methamphetamine abuse: Problem details: - reviewed with patient that her methamphetamine abuse is directly contributing to her CHF; now adamant that she is done using because I don't want to Status: Acute (6) Type 1 diabetes mellitus with diabetic autonomic (poly)neuropathy: Problem details: - sliding scale insulin, home regimen unclear, history of noncompliance - q.i.d. acute - most recent A1C 8.2 (was 8.11 January 2022) Status: Acute (7) CKD (chronic kidney disease) stage 4, GFR 15-29 ml/min: Problem details: - with LISA vs new normal; outpatient baseline creatinine of 2.4 - Trend, avoid nephrotoxic therapies Status: Acute (8) Tobacco abuse: Problem details: - Nicotine gum and inhalers Status: Acute (9) Sleep apnea: Problem details: - Noted, will use supplemental O2 as needed Status: Acute (10) Asthma: Problem details: - Albuterol and DuoNebs prn Status: Acute (11) Normocytic anemia: Problem details: - likely 2/2 CKD, no evidence of acute bleeding, denies h/o melena Status: Acute (12) Fall: Problem details: - admission imaging (CT of C/A/P) on 08/14 reassuring - persistent L sided rib pain with movement, repeat XRay 08/22 remained stable Status: Acute Plan Patient agreeable with above stated plans and recommendations. Time Spent With Patient Total time spent: 15 minutes Subjective Time Seen by Provider: 12:30 Date Seen: 08/24/22 Interval history: Joelle has no concerns for hospitalist team today. She believes her vision is slowly improving. She likes using the eye patch. Unfortunately, her creatinine remains elevated today. Denies dyspnea at rest, paroxysmal nocturnal dyspnea, orthopnea. Denies chest heaviness, pressure, tightness, or pain. Denies syncope or near-syncope. She denies any change in urination or abdominal pain. She is tolerating po intake. Exam Narrative: Exam Narrative: No acute distress. Cooperative. Alert, oriented to self, place, in part to time and situation. Lungs are clear to auscultation. Heart tones with regular rhythm. Abdomen with active bowel sounds, soft, nontender. Moves all 4 extremities. Const: Vital Signs, click to edit/add: Vital Signs - 24 hr 08/23/22 21:15 08/23/22 23:00 08/23/22 23:00 Temperature 97.8 F Pulse Rate [Right Pulse Oximeter] 75 Respiratory Rate 16 18 18 Blood Pressure [Ri ght Arm] 147/91 H Pulse Oximetry 96 Oxygen Delivery Me thod Room Air Room Air 08/24/22 03:00 08/24/22 09:00 08/24/22 12:00 Temperature 97.2 F L 97 F L 97 F L Pulse Rate [Right Pulse Oximeter] 72 74 73 Respiratory Rate 18 18 16 Blood Pressure [Ri ght Arm] 127/73 126/77 153/88 H Pulse Oximetry 97 94 94 Oxygen Delivery Me thod Room Air Room Air Room Air Documenting provider has reviewed patient's vital signs: yes Labs Labs: Laboratory Results - last 24 hr 08/24/22 08/24/22 11:14 11:14 WBC 11.19 H RBC 3.82 L Hgb 11.1 L Hct 34.1 MCV 89 MCH 29 MCHC 33 RDW Coeff of Santino 12.6 Plt Count 319 Neut % (Auto) 67.7 Lymph % (Auto) 22.2 [place] % (Auto) 7.0 Eos % (Auto) 2.5 Baso % (Auto) 0.4 Neut # (Auto) 7.60 H Lymph # (Auto) 2.50 [place] # (Auto) 0.80 Eos # (Auto) 0.30 Baso # (Auto) 0.00 Sodium 139 Potassium 3.7 Chloride 106 Carbon Dioxide 26 BUN 77 H Creatinine 3.4 H Estimated Creat Clear 14.94 Estimated GFR 16 Glucose 198 H Calcium 9.2
[2022-08-24] MEDS: 0.9 % SODIUM CHLORIDE 500 ML 500 ML IV (17:36)
[2022-08-24 20:40] VITALS: BP 152/90; PULSE 80; RESP 20; TEMP 36.4; O2SAT 96
[2022-08-24] MEDS: ENOXAPARIN 30 MG/0.3ML INJ SUBCUT (20:42)
[2022-08-24] MEDS: ATORVASTATIN CALCIUM 40 MG TABLET 80 MG PO (20:46)
[2022-08-24] MEDS: MIRTAZAPINE 15 MG TABLET PO (20:46)
[2022-08-24 23:00] VITALS: BP 147/73; PULSE 84; RESP 20; TEMP 36.8; O2SAT 95
[2022-08-25 03:00] VITALS: BP 154/90; PULSE 86; RESP 18; TEMP 36.7; O2SAT 95
--- NOTE | 2022-08-25 05:46 | PC.NURSE ---
END OF SHIFT NOTE: PT UPSET WHEN AWAKEN FOR ROUTINE NOC VS. STATING, ?I WANT SLEEP?. PT HX OF CVA WITH RESIDUAL RIGHT-SIDED WEAKNESS. AMBULATES WITH WALKER, GB, A1. UNSTEADY GAIT WITH HEAVY LEAN TO RIGHT SIDE. PT REQUIRES A LOT OF ENCOURAGMENT TO PARTICIPATE IN CARES. VSS ON RA; AFEBRILE. REPORTS LEFT SIDED RIB PAIN 02/16. PRN PAIN MEDS ADMINISTERED;?PT BEHAVIOR INDICATES RELIEF. DENIES CP, SOB, N/V.
[2022-08-25 07:13] LABS: HCO3 VBG 25 mmol/L (21-28); Lactate* 0.6 mmol/L (0.5-1.9); PCO2 VBG 42 mmHG (40-50); PO2 VBG 49.6 mmHG (25-47); pH VBG 7.381 (7.32-7.43)
[2022-08-25 07:20] LABS: Hematocrit 32.1 % (33.0-51.0); Hemoglobin* 10.4 gm/dL (12.0-16.0); Mean Corpuscular HGB Conc 32 gm/dL (32-36); Mean Corpuscular Hemoglobin 29 pg (26-34); Mean Corpuscular Volume 89 fL (80-100); Platelet Count* 323 K/uL (140-440); Red Blood Count 3.61 m/uL (4.00-5.20); White Blood Count* 11.33 K/uL (4.50-11.00)
[2022-08-25 07:22] LABS: Slide Review Reflex No
[2022-08-25 07:40] LABS: Chloride* 110 mmol/L (96-114); Sodium* 139 mmol/L (135-149)
[2022-08-25 07:43] LABS: Blood Urea Nitrogen* 73 mg/dL (7-30); Carbon Dioxide* 24 mmol/L (20-32); Creatinine* 3.2 mg/dL (0.5-1.5); Est. Creatinine Clearance* 15.87; Estimated Glomerular Filt Rate 17 ml/min; Glucose* 133 mg/dL (60-115)
[2022-08-25 07:44] LABS: Magnesium* 2.1 mg/dL (1.5-2.6); Phosphorus* 4.8 mg/dL (2.5-4.5)
[2022-08-25 07:46] LABS: C Reactive Protein* 0.7 mg/dL (0.5-1.0)
[2022-08-25 08:01] LABS: NT Pro B Type NatriureticPept* 13700 pg/mL
[2022-08-25 08:25] VITALS: BP 153/79; PULSE 75; RESP 16; TEMP 36.8; O2SAT 97
[2022-08-25 09:38] VITALS: BMI 28.9
[2022-08-25] MEDS: POTASSIUM CHLORIDE 10 MEQ CAPSULE ER PO (09:51)
[2022-08-25] MEDS: HYDROCODONE-ACETAMIN 5-325 MG 1 TAB PO ×2 (09:52→21:08)
[2022-08-25] MEDS: METOCLOPRAMIDE 10 MG TABLET 5 MG PO ×2 (09:52→18:04)
[2022-08-25] MEDS: CLOPIDOGREL 75 MG TABLET PO (09:52)
[2022-08-25] MEDS: carvediloL 6.25 MG TABLET PO ×2 (09:53→21:08)
[2022-08-25] MEDS: CYANOCOBALAMIN (VITAMIN B-12) 500 MCG TABLET 1000 MCG PO (09:53)
[2022-08-25] MEDS: TORSEMIDE 20 MG TABLET PO (09:54)
[2022-08-25] MEDS: ASPIRIN 81 MG TAB.CHEW PO (09:54)
[2022-08-25 11:00] VITALS: BP 155/88; PULSE 73; RESP 16; TEMP 37; O2SAT 98
--- NOTE | 2022-08-25 13:28 | PC.NURSE ---
Pt's left rib pain secondary to prehospitalization fall managed with [facility]. 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 Pt slept between nsg interventions. Plan d/c to [facility] tomorrow for rehab/strengthening and chemical dependency treatment. Pt admitted for meth use. Treated also for CHF and her DM. BG 116 at breakfast, no SS insulin required for this reading. BG 152 before lunch, pt refused 3units of Novolog insulin per SS parameters. I'm not ready to eat yet. Plan PT and OT this afternoon.
--- NOTE | 2022-08-25 14:35 | PC.NURSE ---
Pt worked with OT this afternoon on ADLs. Plan shower with OT at 0830 am. D/C to [facility] planned for 10:30 AM on Thursday08/26/22. Pt refused lunch tray I want to sleep. Report will be given to oncoming shift.
[2022-08-25 15:00] VITALS: BP 153/98; PULSE 76; RESP 16; TEMP 36.7; O2SAT 97
--- NOTE | 2022-08-25 15:32 | PC.SOCIAL ---
Pt. has been accepted to [facility] for tomorrow. PAS completed# [id number]. Spoke with Chelo in Admissions at [facility] at [phone], , email: [email or web address]. They prefer patient to tranport in the am. Pt. will need a non-emergency medical transport. Tried calling pt.'s [facility] medical assistance for any medical transport ability but they are closed for the holiday. Pt. has been updated as well as her sign. other. He will bring in clothes this evening for pt.
[2022-08-25] MEDS: ACETAMINOPHEN 325 MG TABLET PO (15:39)
--- NOTE | 2022-08-25 16:37 | P.IMPN_ITS ---
Progress Note: A&P Assessment and plan (1) Lacunar infarct, acute: Problem details: - Dr. Puentes reviewed with Dr. Castro from [facility] Neuro 08/19. 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 - Neurology recommends continuing Plavix 75 mg daily, did not think she needed dual platelet therapy for CVA, but agreeable to continuing this for cardiac disease - Continue home dose of Atorvastatin - Difficulty swallowing; seen by Speech 08/20 who recommends soft/bite sized foods, thin liquids, pills one at a time, eat/drink while sitting up, continued speech f/u - Continue PT and OT, consider LTAC referral upon d/c (unclear if patient has stamina for this) vs SNF - lives with boyfriend who states he will be unable to take patient back home with current needs - daughter interested in having mother closer; wondering if a SNF near [place], [place] is a possibility Status: Acute Assessment and Plan: Stable on current regimen. (2) Acute on chronic clinical systolic heart failure: Problem details: - Dr. 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 Mildly elevated Cr is possibly her new normal on diuretics, continue to follow - remains stable on RA - guideline directed therapy: continue Coreg, lisinopril (holding now for LISA), aspirin, Lipitor, Plavix - troponin peaked at 0.11 - + weakness; working with therapies Status: Acute (3) Dysconjugate gaze: Problem details: - onset unclear, not present prior to ED presentation per patient and partner. Likely related to lacunar infarcts on MRI - known history of diabetic retinopathy, previously followed with Ophthalmology as an outpatient - appreciate input from OT Status: Acute (4) LISA (acute kidney injury): Problem details: - holding Lisinopril, will decrease Torsemide dosing - will trial gentle IVF bolus early 08/24 morning followed by Torsemide dosing tomorrow Status: Acute (5) Methamphetamine abuse: Problem details: - reviewed with patient that her methamphetamine abuse is directly contributing to her CHF; now adamant that she is done using because I don't want to Status: Acute Assessment and Plan: We are working to try to establish a safe discharge disposition for the patient which includes treatment for her methamphetamine dependence. (6) Type 1 diabetes mellitus with diabetic autonomic (poly)neuropathy: Problem details: - sliding scale insulin, home regimen unclear, history of noncompliance - q.i.d. acute - most recent A1C 8.2 (was 8.11 January 2022) Status: Acute (7) CKD (chronic kidney disease) stage 4, GFR 15-29 ml/min: Problem details: - with LISA vs new normal; outpatient baseline creatinine of 2.4 - Trend, avoid nephrotoxic therapies Status: Acute Assessment and Plan: Creatinine slowly normalizing with decreasing doses of diuretic. (8) Tobacco abuse: Problem details: - Nicotine gum and inhalers Status: Acute (9) Sleep apnea: Problem details: - Noted, will use supplemental O2 as needed Status: Acute (10) Asthma: Problem details: - Albuterol and DuoNebs prn Status: Acute (11) Normocytic anemia: Problem details: - likely 2/2 CKD, no evidence of acute bleeding, denies h/o melena Status: Acute (12) Fall: Problem details: - admission imaging (CT of C/A/P) on 08/14 reassuring - persistent L sided rib pain with movement, repeat XRay 08/22 remained stable Status: Acute Plan 1. Patient agreeable with above stated plans and recommendations. 2. Continue to work with social sciences lecturer to establish a safe discharge disposition plan. Time Spent With Patient Total time spent: 20 minutes Subjective Time Seen by Provider: 12:00 Date Seen: 08/25/22 Interval history: Hospital day . November has no concerns for hospitalist team today. She states that when she uses the patch her vision is improved. Denies dyspnea at rest, paroxysmal nocturnal dyspnea, orthopnea. Denies chest heaviness, pressure, tightness, or pain. Denies syncope or near-syncope. She denies any change in urination or abdominal pain. She is tolerating po intake. Exam Narrative: Exam Narrative: Appears comfortable and in no acute distress. Late morning she is lying on her bed in the dark with all room lights off. She is awake and seemingly appropriate. She allows me to draw the shades open in her room in turn on the lights while I visit with her. Before I leave I closed the shades per her request and turn off the lights per her request. Alert, oriented to self, place, time, situation. Friendly, cooperative, articulate. Mood and affect are congruent. Lungs are clear to auscultation. Heart tones with regular rhythm. Abdomen is benign. Moves all 4 extremities. Ambulates independently. Still has dysconjugate gaze on the right. Const: Vital Signs, click to edit/add: Vital Signs - 24 hr 08/24/22 20:40 08/24/22 23:00 08/24/22 23:00 Temperature 97.5 F L 98.3 F Pulse Rate [Right Pulse Oximeter] 80 84 84 Respiratory Rate 20 20 20 Blood Pressure [Ri ght Arm] 152/90 H 147/73 H Pulse Oximetry 96 95 Oxygen Delivery Me thod Room Air Room Air 08/25/22 03:00 08/25/22 08:25 08/25/22 11:00 Temperature 98.0 F 98.2 F 98.6 F Pulse Rate [Right Pulse Oximeter] 86 75 73 Respiratory Rate 18 16 16 Blood Pressure [Ri ght Arm] 154/90 H 153/79 H 155/88 H Pulse Oximetry 95 97 98 Oxygen Delivery Me thod Room Air Room Air Room Air Documenting provider has reviewed patient's vital signs: yes Labs Labs: Laboratory Results - last 24 hr 08/25/22 08/25/22 08/25/22 06:45 06:45 06:45 WBC 11.33 H RBC 3.61 L Hgb 10.4 L Hct 32.1 L MCV 89 MCH 29 MCHC 32 Plt Count 323 VBG pH 7.381 VBG pCO2 42 VBG pO2 49.6 H VBG HCO3 25 Sodium 139 Potassium 4.0 Chloride 110 Carbon Dioxide 24 BUN 73 H Creatinine 3.2 H Estimated Creat Clear 15.87 Estimated GFR 17 Glucose 133 H Lactate 0.6 Calcium 9.0 Phosphorus 4.8 H Magnesium 2.1 C-Reactive Protein 0.7 NT-Pro-B Natriuret Pep [id number]
[2022-08-25 19:00] VITALS: BP 126/83; PULSE 75; RESP 16; TEMP 36.6; O2SAT 96
[2022-08-25] MEDS: ATORVASTATIN CALCIUM 40 MG TABLET 80 MG PO (21:07)
[2022-08-25] MEDS: MIRTAZAPINE 15 MG TABLET PO (21:07)
[2022-08-25] MEDS: ENOXAPARIN 30 MG/0.3ML INJ SUBCUT (21:08)
[2022-08-25] MEDS: SODIUM CHLORIDE 0.9 % (FLUSH) 10 ML SYRINGE 5 ML IVF (21:08)
--- NOTE | 2022-08-25 22:37 | PC.NURSE ---
End of Shift: Patient pleasant and cooperative. Afebrile. Rating pain in ribs up to 5-7/10 and PRN Tylenol and Hernandez each given x1. Tolerating regular diet with no nausea. Up to bathroom and chair with 1 assist, walker and gait belt.
[2022-08-25 23:00] VITALS: BP 125/81; PULSE 77; RESP 18; TEMP 36.7; O2SAT 97
[2022-08-26 03:00] VITALS: BP 145/85; PULSE 82; RESP 14; TEMP 36.4; O2SAT 97
[2022-08-26] MEDS: HYDROCODONE-ACETAMIN 5-325 MG 1 TAB PO ×2 (03:19→09:23)
--- NOTE | 2022-08-26 06:43 | PC.NURSE ---
Pt alert and oriented x3. Afebrile. Pt reports rib pain 5/10, pain managed with PRN medications. Pt denies chest pain, SOB, and N/V.?Pt has right side weakness when walking and?is up to the bathroom with A1 with walker and gait belt. ?
[2022-08-26 07:45] VITALS: BP 103/66; PULSE 70; RESP 16; TEMP 36.7; O2SAT 95
[2022-08-26] MEDS: METOCLOPRAMIDE 10 MG TABLET 5 MG PO (09:22)
[2022-08-26] MEDS: carvediloL 6.25 MG TABLET PO (09:22)
[2022-08-26] MEDS: CLOPIDOGREL 75 MG TABLET PO (09:22)
[2022-08-26] MEDS: CYANOCOBALAMIN (VITAMIN B-12) 500 MCG TABLET 1000 MCG PO (09:24)
[2022-08-26] MEDS: TORSEMIDE 20 MG TABLET 10 MG PO (09:24)
[2022-08-26] MEDS: ASPIRIN 81 MG TAB.CHEW PO (09:24)
[2022-08-26] MEDS: POTASSIUM CHLORIDE 10 MEQ CAPSULE ER PO (09:25)
--- NOTE | 2022-08-26 09:33 | P.DS_ITS ---
DS: Providers Provider Date Seen: 08/26/22 Date of admission: 08/15/22 15:00 Primary care physician: MELINDA Hernandez Admitting Clinician: Ange Tai MD Consults: 08/14/22 15:15 Consult to Occupational Therapy [CONS] Routine Comment: Reason(s) for OT Consult:: Evaluate and Treat Any Restrictions?:: No Restrictions Consult to Physical Therapy [CONS] Routine Comment: Reason(s) for PT Consult:: Evaluate and Treat Any Restrictions?:: No Restrictions Consult to Secondary Art Teacher [CONS] Routine Comment: Reason for Consult:: Social Service Consult 08/14/22 19:45 Consult to Physical Therapy [CONS] Routine Comment: Reason(s) for PT Consult:: Balance Assessment Any Restrictions?:: No Restrictions 08/20/22 09:28 Consult to Speech Therapy [CONS] Routine Comment: Reason(s) for Speech Consult:: Speech/Swallowing Eval Attending Physician on discharge: Shira Tovar MD [facility] Date of Discharge: 08/26/22 DS: Diagnosis Discharge Diagnosis (1) Acute on chronic clinical systolic heart failure: Status: Acute Problem details: - Dr. 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 Mildly elevated Cr is possibly her new normal on diuretics, continue to follow - remains stable on RA - guideline directed therapy: continue Coreg, lisinopril (was held for LISA but with normal potassium and need in regards to lower EF we restarted), aspirin, Lipitor, Plavix Echo done on 08/14/2022 LVEF 30-35% large apical akinesis. Reduced global RV function. Troponin peaked at 0.11, likely not as clinically significant as this number secondary to renal clearance of troponin BNP peaked at 29,600, down to 13,700 with therapy (2) CKD (chronic kidney disease) stage 4, GFR 15-29 ml/min: Status: Acute Problem details: Creatinine on admission 2.3 by progressed and at discharge draining 3.2-3.4. BUN is ranging in the 70s. Phosphorus 4.8 - on lisinopril, potassium wnl and reduced EF are the indication in the setting of CKD (3) Nephrotic range proteinuria: Status: Acute Problem details: - Noted, following (4) ASHD (arteriosclerotic heart disease): Status: Acute Problem details: - troponin peak @ 0.11. Cardiology felt like this was likely not ischemic. troponin does clear well with elevated creatines. CATH 10/01 * Chest pain, syncope, abnormal perfusion study with inferior ischemia, poorly controlled diabetes. DIAGNOSTIC - CORONARY * The left main artery has mild disease. * The LAD has diffuse moderate disease. * The circumflex artery has diffuse moderate disease. * The RCA is dominant with severe proximal to mid disease, moderate disease at distal bifurcation. HEMODYNAMICS * The LVEDP is within normal limits VASCULAR ACCESS * Using ultrasound guidance and a percutaneous technique, the right common femoral artery was accessed. Ultrasound was used to confirm vessel patency, localizing needle into the lumen of the vessel. An image was saved for the medical record. SPECIAL PROCEDURES * Right femoral arteriotomy was successfully closed utilizing a closure device INTERVENTION Successful 2mm x 15mm Balloon, 2.5mm x 15mm Balloon, 1.5mm x 12mm Balloon, 2.5mm x 12mm Balloon, 2.5mm x 12mm Balloon, 2.25mm x 22mm Balloon, 2.5mm x 38mm Drug Eluting Stent, and 2.25mm x 22mm Drug Eluting Stent to Proximal to Mid RCA, post stenosis 0% RECOMMENDATIONS & PLAN * Optimize risk factors and medications, smoking cessation, aggressive diabetes management. * Plavix for 1 year ? minimum (5) Methamphetamine abuse: Status: Acute Problem details: - reviewed with patient that her methamphetamine abuse is directly contributing to her CHF; now adamant that she is done using because I don't want to (6) Type 1 diabetes mellitus with diabetic autonomic (poly)neuropathy: Status: Acute Problem details: Hemoglobin A1c during this admission is 8.5. Glucose is 150-250. On Lantus at bedtime, 18 units and p.r.n. sliding scale regular 1-5 units typically 3 times a day (7) Dysconjugate gaze: Status: Acute Problem details: - onset unclear, not present prior to ED presentation per patient and partner. Likely related to lacunar infarcts on MRI - known history of diabetic retinopathy, previously followed with Ophthalmology as an outpatient - appreciate input from OT (patching recommended of the left eye) (8) Lacunar infarct, acute: Status: Acute Problem details: - Dr. Puentes reviewed with Dr. Castro from [facility] Neuro 08/19. 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 - Neurology recommends continuing Plavix 75 mg daily, did not think she needed dual platelet therapy for CVA, but agreeable to continuing this for cardiac disease - Continue home dose of Atorvastatin - Difficulty swallowing; seen by Speech 08/20 who recommends soft/bite sized foods, thin liquids, pills one at a time, eat/drink while sitting up, continued speech f/u Brain MRI 08/18/2022 Small acute, nonhemorrhagic, lacunar infarct in the paramedian dorsal kurt, slightly more prominent to the left, without mass-effect. This is in a location consistent with disruption of the medial longitudinal fasciculus and would be consistent with the history of dysconjugate gaze. Tiny, acute, nonhemorrhagic, lacunar infarct in the right mid kurt. 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 Old small infarct in the right PICA territory. Multiple old lacunar infarcts and mild small vessel ischemic change consistent with patient age. Mild diffuse cerebral atrophy consistent with patient age. (9) Normocytic anemia: Status: Acute Problem details: - likely 2/2 CKD, no evidence of acute bleeding, denies h/o melena (10) Asthma: Status: Acute Problem details: - Albuterol and DuoNebs prn (11) Tobacco abuse: Status: Acute Problem details: - Nicotine gum and inhalers (12) Sleep apnea: Status: Acute Problem details: - Noted, will use supplemental O2 as needed DS: Summary Hospital Course Hospital Course: HOSPITALIST DISCHARGE SUMMARY ATTENDING PHYSICIAN: Shira Tovar MD FINAL DIAGNOSIS: Acute systolic heart failure with reduced ejection fraction Methamphetamine toxicity, chronic use Lacunar infarct, subacute Coronary artery disease Stage 4 chronic kidney disease Type 1 diabetes Elevated phosphorus HOSPITAL FOLLOWUP ISSUES: Skilled rehab, medical and substance abuse 1. Methamphetamine recovery and abstinence 2. Congestive heart failure, systolic with reduced ejection fraction. Will need follow-up with Cardiology, [facility] 3. Chronic kidney disease, stage IV. Creatinine 3.4. Will need follow-up with nephrology 4. Neurology, f/u recent Lacunar stroke and debility and recovery related to this REFERRALS WHILE ADMITTED: PT, OT, speech therapy REFERRALS AFTER DISCHARGE: None BRIEF HOSPITAL COURSE: Joelle is a 52-year-old who presents after a fall at home. She was found to have had a acute lacunar stroke, she was in congestive heart failure with reduced EF, worsening chronic kidney disease and off all of her home medications for chronic disease. She lives in a setting with her significant other were both are regular uses of methamphetamine, marijuana, tobacco and alcohol. In the nearly 2 weeks that we had Joelle here we performed an echocardiogram which showed a worsening systolic heart failure we diagnosed the lacunar stroke. We restarted guideline directed therapies for both acute CHF and chronic CAD. We also consulted with Nephrology and Cardiology by phone given her history of recent stroke and worsening heart failure as well as worsening chronic kidney disease. We managed her blood sugar, she worked hard with therapies. Patching her left eye has helped the extropia in her right eye. As she transfers to skilled rehab her greatest needs include abstinence from methamphetamine, insight into this dependence. We also recognize the guideline directed therapy for her heart failure, coronary artery disease and chronic kidney disease and type 1 diabetes or widely important for her to have a quality of life that allows her to live independently. She does have established care with Nephrology through [facility], cardiology through [facility] and a PCP, MELINDA Case. SUBSTANTIVE NOTATIONS ON IMAGING, LAB, MICROBIOLOGY/PATHOLOGY STUDIES: Echo from this hospitalization as well as MRI detailed above in discharge diagnoses. Previous left heart catheterization also detailed above. 08/25/2022 Sodium 139, potassium 4.0, chloride 110, carbon dioxide 24, BUN 73, creatinine 3.2, GFR 17, glucose 133, calcium 9.0, phosphorus 4.8, magnesium 2.1, C reactive protein 0.7, BNP 45044 08/26/2022 Mild chronic elevated WBC count, 11.5 average Hemoglobin 10.4-11.4, likely related to renal disease Platelets stable, 300s Recent pH 7.4 on August 25 No CO2 retention DISCHARGE MEDICATIONS: See Reconciled list - SIGNIFICANT CHANGES: REVIEW OF SYSTEMS No new chest pain or dyspnea Pain controlled No voiding difficulties Tolerating diet challenge PHYSICAL EXAM: CONSTITUTIONAL: VITAL SIGNS: see record. HEENT: Normocephalic, atraumatic. PERRL, EOMI, conjunctivae pink, no scleral icterus. Ears and nose externally normal. Pharynx normal. NECK: No JVD. No carotid bruit, no thyromegaly, no adenopathy. CHEST: Clear to auscultation bilaterally. HEART: S1 and S2 normal. Edema ABDOMEN: Soft, nontender. Normal bowel sounds. MUSCULOSKELETAL: No gross joint deformity or swelling. NEURO: Cranial nerves intact. Grossly intact. No asymmetric findings. SKIN: No rashes, petechiae, concerning changes PSYCHIATRIC: Mood euthymic. DISPOSITION: Time spent on discharge 37 minutes. Status at Discharge Functional status at discharge: uses cane/walker Overall status at discharge: patient is progressing back to baseline Time Spent with Patient Time attestation: Total time spent providing and/or coordinating discharge services: Time spent: Greater than 30 minutes Exam Const: Vital Signs, click to edit/add: Vital Signs - 24 hr 08/25/22 11:00 08/25/22 15:00 08/25/22 15:00 Temperature 98.6 F 98.0 F Pulse Rate [Right Pulse Oximeter] 73 76 76 Respiratory Rate 16 16 16 Blood Pressure [Ri ght Arm] 155/88 H 153/98 H Pulse Oximetry 98 97 Oxygen Delivery Me thod Room Air Room Air 08/25/22 19:00 08/25/22 23:00 08/26/22 03:00 Temperature 97.8 F 98.0 F 97.6 F Pulse Rate [Right Pulse Oximeter] 75 77 82 Respiratory Rate 16 18 14 Blood Pressure [Ri ght Arm] 126/83 125/81 145/85 H Pulse Oximetry 96 97 97 Oxygen Delivery Me thod Room Air Room Air Room Air Discharge Plan Discharge Disposition: [facility] Date of Admission: 08/15/22 15:00 Attending Provider on Discharge: Shira Tovar Primary Care Provider: Dick Carter Discharge Medications: New carvedilol 6.25 mg Tablet 6.25 mg PO BID Qty: 60 0RF polyethylene glycol 3350 [Miralax] 17 gram Powder In Packet 17 g PO DAILY PRNQty: 100 0RF clopidogrel 75 mg Tablet 75 mg PO DAILY Qty: 30 0RF lisinopril 10 mg Tablet 10 mg PO DAILY Qty: 30 0RF ondansetron 4 mg Tablet,Disintegrating 4 mg PO Q6H PRNQty: 60 0RF potassium chloride 10 mEq Capsule, Extended Release 10 meq PO DAILY Qty: 30 0RF torsemide 20 mg Tablet 10 mg PO DAILY@0800 Qty: 30 0RF Continued atorvastatin 80 mg tablet 80 mg PO HS metoclopramide HCl 5 mg tablet 5 mg PO TIDWM aspirin 81 mg tablet,chewable 81 mg PO DAILY albuterol sulfate [Ventolin HFA] 90 mcg/actuation HFA aerosol inhaler 1 puff INHALATION QID PRN insulin glargine [Lantus Solostar U-100 Insulin] 100 unit/mL (3 mL) insulin pen 18 unit SUBCUT HS nitroglycerin [Nitrostat] 0.4 mg tablet, sublingual 0.4 mg sublingual Q5M PRN Rx Instructions: do not exceed 3 doses per episode mecobalamin (vitamin B12) 1,000 mcg tablet,chewable 1,000 mcg PO DAILY acetaminophen 325 mg tablet 650 mg PO Q6H PRN ipratropium-albuterol 0.5 mg-3 mg(2.5 mg base)/3 mL solution for nebulization 3 ml inhalation QID PRN cyanocobalamin (vitamin B-12) 1,000 mcg tablet 1,000 mcg PO DAILY mirtazapine 15 mg tablet 15 mg PO HS Label Comments: TAKE ONE TABLET BY MOUTH ONE TIME DAILY AT BEDTIME hydrocodone-acetaminophen 5-325 mg tablet 1 tab PO Q4H PRNQty: 30 0RF Changed insulin aspart U-100 [Novolog FlexPen U-100 Insulin] 100 unit/mL (3 mL) insulin pen 1 - 6 unit SUBCUT TIDWM Qty: 15 0RF Label Comments: AND SLIDING SCALE Rx Instructions: use the following scale for ACHS blood sugar checks: 0-150 = NO units 151-200 = 2 units 201-250 = 3 units 251-300 = 4 units 301-350 = 5 units 351-400 = 6 units Discharge Orders: Discharge Order (Routine); Ordered 08/26/22 Ordered By: Shira Tovar Additional Instructions: 1. When she is appropriate for discharge from your facility: I would recommend follow ups with MELINDA Hernandez; family Medicine. I would recommend follow up with Dr. Zamarripa, nephrology. I would recommend follow up with [facility] [email or web address], any provider. 2. Her most acute issues: Recent CVA with right eye exotropia causing 8 disturbance and dizziness. We have been patching her left eye intermittently to strengthen her right eye. So post stroke protocol would be advantageous. She also has congestive heart failure that is new in the last few months. In discussion with Cardiology they felt this was all methamphetamine induced. She has right main disease that has been stented. Her last stent was in November of 2021. Cardiology felt that she needed guideline directed therapy for both CAD, CHF. Which we initiated here in the acute care setting. Follow-up echoes and cardiology visits can be established [facility]. Activity Level: Activity as Tolerated and Up with assist Activity Detail: She has right eye extropia and has been patching the left eye several times a day to strengthen the right eye movement. This extropia (s/p CVA) has caused dizziness and unstable gait. Activity Restrictions: I would recommend she walks with a walker and gait belt with assistance. Discharge Diet: Diabetic, Heart Healthy (2 gm sodium, low fat) and Renal Diet Detail: Type 1 DM with known heart disease; and CKD. needs renal diet, low phosphorus Follow Up Appointments: [facility] [Provider Group] - 10/08/22 (any provider. F/U CHF, CAD and hx of meth abuse) Eunice Hernandez PA-C [Referring] - 10/08/22 (f/u hospitalization ([place]) and skilled rehab/substance abuse rehab ([facility])) Danilo Zamarripa MD [Referring] - 10/08/22 (CKD, stage IV f/u) Forms: [facility] Info Instructions Admit to: SNF Discharge Potential: Fair Length of Stay: 30-90 days Can use facility standing orders?: Yes Code Status: Full Code TEDs: Bilateral Knee Rehab Potential: Fair Therapy: Physical Therapy, Occupational Therapy and Speech Therapy Therapy Orders: Evaluate and Treat, Gait Training, ADL and Other Therapy Orders Additional Information: substance abuse treatment: Methamphetamine Oxygen: No Urinary Catheter: No Glucose Checks: QACHS, type 1 DM Orders are good >30 days: Yes
[2022-08-26 09:40] VITALS: PULSE 73; RESP 14; TEMP 36.4
--- NOTE | 2022-08-26 12:01 | PC.NURSE ---
1158 am: Pt d/c'ed to [facility] via stretcher with EMS non-emergent transfer. Report called to receiving nurse at accepting facility 11:40 am @ . All personal belongings packed up and sent with pt. Please see Emar for meds provided. BG 167 required 3 units Novolog coverage per SS.
== END 2022-08-26 11:58 | DRG 194 ==
LOC: ED 13:12 → MEDSURG 14:20
PROVIDERS: Family Medicine; Hospitalist; Internal Medicine; Admitting Provider Family Medicine; Emergency Provider Family Medicine; PCP Family Medicine; Visit Provider Family Medicine
DX: I50.23 Acute on chronic systolic (congestive) heart failure (principal); F15.20 Other stimulant dependence, uncomplicated; I63.81 Other cerebral infarction due to occlusion or stenosis of small artery; H50.15 Alternating exotropia; G93.49 Other encephalopathy; H51.0 Palsy (spasm) of conjugate gaze; N39.0 Urinary tract infection, site not specified; N17.9 Acute kidney failure, unspecified; N18.4 Chronic kidney disease, stage 4 (severe); E10.43 Type 1 diabetes mellitus with diabetic autonomic (poly)neuropathy; R07.81 Pleurodynia; E87.6 Hypokalemia; D64.9 Anemia, unspecified; R13.10 Dysphagia, unspecified; J45.909 Unspecified asthma, uncomplicated; I42.7 Cardiomyopathy due to drug and external agent; T43.655A Adverse effect of methamphetamines, initial encounter; E10.22 Type 1 diabetes mellitus with diabetic chronic kidney disease; E10.319 Type 1 diabetes mellitus with unspecified diabetic retinopathy without macular edema; W01.198A Fall on same level from slipping, tripping and stumbling with subsequent striking against other object, initial encounter; Y92.002 Bathroom of unspecified non-institutional (private) residence as the place of occurrence of the external cause; Z79.4 Long term (current) use of insulin; Z79.84 Long term (current) use of oral hypoglycemic drugs; R80.8 Other proteinuria; G47.00 Insomnia, unspecified; G89.29 Other chronic pain; G47.30 Sleep apnea, unspecified; M79.7 Fibromyalgia; F17.210 Nicotine dependence, cigarettes, uncomplicated; I25.10 Atherosclerotic heart disease of native coronary artery without angina pectoris; K21.9 Gastro-esophageal reflux disease without esophagitis; E78.5 Hyperlipidemia, unspecified
CPT/HCPCS: 36415; 70450; 70551; 71045; 71250; 74176; 80048; 80053; 80061; 80306; 81001; 82310; 82330; 82803; 82962; 83036; 83605; 83735; 83880; 83970; 84100; 84145; 84443; 84484; 85025; 85027; 86140; 87086; 87502; 87634; 87635; 93005; 93306; 94761; 97110; 97116; 97162; 97165; 97530; 97535; 99284; 99285; G0378; A9270; C9113; J1650; J1940; J7120

== ENCOUNTER 2022-08-26 11:41 | Outpatient (CLI) | payer BC, SELFPAY | END 2022-08-26 11:42 | disposition home or self-care (01) | LOC: AMB 08-27 12:13 | PROVIDERS: PCP Family Medicine; Visit Provider Family Medicine | DX: R07.81 Pleurodynia (principal) | CPT/HCPCS: A0425; A0428 ==